=== PATIENT | female | born 1980 | race American Indian/Alaskan Native ===

== ENCOUNTER 2017-01-20 06:46 | Emergency (ER) | payer MEDICAID ==
[2017-01-20 07:05] VITALS: BP 153/94
[2017-01-20] MEDS ORDERED: Triamcinolone Acetonide 40 MG/ML 1 ML MDV ONE (07:10)
--- NOTE | 2017-01-20 08:11 | EDM.PDOC ---
ED HPI GENERAL MEDICAL PROBLEM - General Chief Complaint: General Stated Complaint: Neck and R shoulder pain Time Seen by Provider: 01/20/17 07:05 Source of Information: Reports: Patient History Limitations: Reports: No limitations - History of Present Illness INITIAL COMMENTS - FREE TEXT/NARRATIVE: This is a 36yo F here for severe neck pain and tenderness with difficulty moving without severe pain. Patient states the pain is 10/10 and worse with trying movement. The pain is the right posterior neck down the shoulder. Patient denies any chest pain, or sob. On further questioning although patient denies any stomach pain, diarrhea or constipation she mentioned she has been having blood in her stool - for the past few days. Patient states her mother had the same issues but never had it checked out and has since passed from other issues. Onset: sudden Duration: Hour(s):, Constant Improves with: Reports: None Worsens with: Reports: Movement Associated Symptoms: Reports: denies other symptoms - Related Data Allergies Allergy/AdvReac Type Severity Reaction Status Date / Time ampicillin Allergy Anaphylactic Verified 12/27/16 12:54 Shock erythromycin base Allergy Anaphylactic Verified 12/27/16 12:54 [Erythromycin Base] Shock ketorolac tromethamine Allergy Muscle Verified 12/27/16 12:54 [From Toradol] Spasms Penicillins Allergy Yeast Verified 12/27/16 12:54 Infections plastic adhesive tape Allergy Blisters Uncoded 12/27/16 12:54 Home Meds: Home Meds Lisinopril [Prinivil] 10 mg PO DAILY 11/09/13 [History] Colchicine 0.6 mg PO BID 03/01/16 [History] Albuterol [Proair HFA] 1 - 2 puff INH Q6HR PRN 03/08/16 [History] Desvenlafaxine [Pristiq] 100 mg PO DAILY 03/08/16 [History] Gabapentin [Gabapentin] 900 mg PO TID 03/08/16 [History] Pantoprazole Sodium [Protonix] 40 mg PO ACBREAKFAST 03/08/16 [History] SUMAtriptan Succinate [Sumatriptan Succinate] 1 tab PO Q2HR PRN 03/08/16 [ History] Triamcinolone Acetonide [Nasacort AQ [place]] 1 spray VIOLA ASDIRECTED 03/08/16 [ History] lamoTRIgine [Lamotrigine] 100 mg PO DAILY 03/08/16 [History] traZODone HCl [Trazodone HCl] 100 mg PO QPM PRN 03/08/16 [History] Cetirizine [ZyrTEC] 10 mg PO DAILY PRN 12/09/16 [History] Cyclobenzaprine [Flexeril] 10 mg PO BEDTIME #25 tab 12/09/16 [Rx] Meloxicam [Meloxicam] 15 mg PO BID 12/09/16 [History] Methocarbamol [Methocarbamol] 500 mg PO TID PRN 12/09/16 [History] Naproxen Sodium [Aleve] 220 mg PO BID PRN 12/09/16 [History] Past Medical History HEENT History: Reports: Impaired vision Other HEENT History: "Deviated septum showed on CT " Cardiovascular History: Reports: Hypertension Other Cardiovascular History: Took steroid for heart inflammation and fluid Respiratory History: Reports: Bronchitis, recurrent Gastrointestinal History: Reports: GERD Other Gastrointestinal History: chronic abdominal pain [employer] History: Reports: Ectopic , Musculoskeletal History: Reports: Back pain, chronic, Fracture, Other (see below ) Other Musculoskeletal History: Tendonitis Neurological History: Reports: Concussion, Migraines Psychiatric History: Reports: Anxiety, Bipolar, Depression Hematologic History: Reports: Anemia Immunologic History: Reports: Other (see below) Other Immunologic History: . - Infectious Disease History Infectious Disease History: Reports: Chicken pox - Past Surgical History Cardiovascular Surgical History: Reports: None Respiratory Surgical History: Reports: None Neurological Surgical History: Reports: Other (see below) Other Neurological Surgeries/Procedures: Back Surgery for Herniated Disk Social & Family History - Family History Family Medical History: Noncontributory Psychiatric: Reports: Anxiety, Bipolar, Depression - Tobacco Use Smoking Status *Q: Current Every Day Smoker Years of Tobacco use: 20 Packs/Tins Daily: 1 Used Tobacco, but Quit: No Second Hand Smoke Exposure: Yes - Caffeine Use Caffeine Use: Reports: Coffee, Soda - Alcohol Use Days Per Week of Alcohol Use: 0 - Recreational Drug Use Recreational Drug Use: No - Living Situation & Occupation Living situation: Reports: single ED ROS GENERAL - Review of Systems Review Of Systems: ROS reveals no pertinent complaints other than HPI. ED EXAM, GENERAL - Physical Exam Exam: See Below Exam Limited By: No limitations General Appearance: alert, WD/WN, moderate distress Eye Exam: bilateral eye: EOMI, PERRL Nose: normal inspection Throat/Mouth: Normal inspection Head: atraumatic, normocephalic Neck: tender lateral Respiratory/Chest: no respiratory distress, lungs clear, normal breath sounds Cardiovascular: normal peripheral pulses, regular rate, rhythm, no edema Peripheral Pulses: 2+: dorsalis pedis (L), dorsalis pedis (R) GI/Abdominal: normal bowel sounds, soft, non tender Extremities: normal inspection, normal range of motion, other (left leg thigh pain, numbness of left sole and lateral foot) Psychiatric: normal affect, normal mood Skin Exam: Warm, Dry, Intact ED GENERAL MEDICAL PROCEDURES - Additional/Other Procedure(s) Other (Free Text) Procedure(s): Trigger point injections done of right neck and right upper back/shoulder region. Patient area prepped sterilely and injected with kenalog 2mL, marcaine 0.5% 2mL, lidocaine 1% 2mL with 27 ga in fan like manner of the right upper shoulder region and this was done with another 2-2-2 27 ga of the right posterior neck region where pain was palpated. Patient tolerated procedure well and felt relief soon after injections. Course - Vital Signs Last Recorded V/S: Last Vital Signs Temp 36.9 C 01/20/17 06:59 Pulse 118 H 01/20/17 06:59 Resp 18 01/20/17 06:59 BP 153/94 H 01/20/17 06:59 Pulse Ox 98 01/20/17 06:59 - Orders/Labs/Meds Meds: Medications Discontinued Medications Generic Name Dose Route Start Last Admin Trade Name Cate PRN Reason Stop Dose Admin Triamcinolone Acetonide Confirm 01/20/17 07:10 Kenalog-40 Administered 01/20/17 07:11 Dose 80 mg .ROUTE .STK-MED ONE Departure - Departure Time of Disposition: 07:50 Disposition: Home, Self-Care 01 Condition: good Clinical Impression: Neck muscle strain Qualifiers: Encounter type: initial encounter Qualified Code(s): S16.1XXA - Strain of muscle, fascia and tendon at neck level, initial encounter Referrals: PCP,Unknown [Primary Care Provider] - Forms: ED Department Discharge - Problem List & Annotations (1) Hematochezia SNOMED Code(s): 546875132 Code(s): K92.1 - MELENA Status: Suspected Priority: Medium (2) Neck muscle strain SNOMED Code(s): 219209317 Code(s): S16.1XXA - STRAIN OF MUSCLE, FASCIA AND TENDON AT NECK LEVEL, INIT Status: Acute Priority: High Qualifiers: Encounter type: initial encounter Qualified Code(s): S16.1XXA - Strain of muscle, fascia and tendon at neck level, initial encounter - Problem List Review Problem List Initiated/Reviewed/Updated: Yes - Assessment/Plan Plan: Counseled on f/u in clinic for neck strain. Use of soft collar discussed and given a soft collar. Patient counseled on hematochezia and colonoscopy and EGD to be scheduled. Order given for scheduling today. Patient agrees with plan of care and f/u.
== END 2017-01-20 07:59 | disposition home or self-care (01) ==
LOC: LB.ED 06:46
DX: S16.1XXA Strain of muscle, fascia and tendon at neck level, initial encounter (principal); I10 Essential (primary) hypertension; D64.9 Anemia, unspecified; F17.210 Nicotine dependence, cigarettes, uncomplicated; Z88.1 Allergy status to other antibiotic agents; Z88.8 Allergy status to other drugs, medicaments and biological substances; Z88.0 Allergy status to penicillin; Z79.899 Other long term (current) drug therapy; X58.XXXA Exposure to other specified factors, initial encounter
CPT/HCPCS: 20552; 99283; 99283-25

== ENCOUNTER 2017-01-28 12:08 | Emergency (ER) | payer MEDICAID ==
[2017-01-28 12:14] VITALS: BP 155/75
--- NOTE | 2017-01-28 15:36 | EDM.PDOC ---
ED HPI GENERAL MEDICAL PROBLEM - General Chief Complaint: General Stated Complaint: PAIN IN ANKLE Time Seen by Provider: 01/28/17 12:30 Source of Information: Reports: Patient History Limitations: Reports: No limitations - History of Present Illness INITIAL COMMENTS - FREE TEXT/NARRATIVE: This is a 36yo F here for a recent fall and pain of the left ankle. Patient was walking down her stairs when her dog moved to the side and she stepped off to avoid stepping on her dog and tripped then fell down the stairs. Patient was brought to the ER by her friend Jorge. Onset: sudden Location: Reports: lower extremity, left Quality: Reports: Ache Severity: severe Improves with: Reports: None Worsens with: Reports: None Associated Symptoms: Reports: denies other symptoms left ankle Pain Score (Numeric/FACES): 10 - Related Data Allergies Allergy/AdvReac Type Severity Reaction Status Date / Time ampicillin Allergy Anaphylactic Verified 12/27/16 12:54 Shock erythromycin base Allergy Anaphylactic Verified 12/27/16 12:54 [Erythromycin Base] Shock ketorolac tromethamine Allergy Muscle Verified 12/27/16 12:54 [From Toradol] Spasms Penicillins Allergy Yeast Verified 12/27/16 12:54 Infections plastic adhesive tape Allergy Blisters Uncoded 12/27/16 12:54 Home Meds: Home Meds Lisinopril [Prinivil] 10 mg PO DAILY 11/09/13 [History] Colchicine 0.6 mg PO BID 03/01/16 [History] Albuterol [Proair HFA] 1 - 2 puff INH Q6HR PRN 03/08/16 [History] Desvenlafaxine [Pristiq] 100 mg PO DAILY 03/08/16 [History] Gabapentin [Gabapentin] 900 mg PO TID 03/08/16 [History] Pantoprazole Sodium [Protonix] 40 mg PO ACBREAKFAST 03/08/16 [History] SUMAtriptan Succinate [Sumatriptan Succinate] 1 tab PO Q2HR PRN 03/08/16 [ History] Triamcinolone Acetonide [Nasacort AQ [place]] 1 spray VIOLA ASDIRECTED 03/08/16 [ History] lamoTRIgine [Lamotrigine] 100 mg PO DAILY 03/08/16 [History] traZODone HCl [Trazodone HCl] 100 mg PO QPM PRN 03/08/16 [History] Cetirizine [ZyrTEC] 10 mg PO DAILY PRN 12/09/16 [History] Cyclobenzaprine [Flexeril] 10 mg PO BEDTIME #25 tab 12/09/16 [Rx] Meloxicam [Meloxicam] 15 mg PO BID 12/09/16 [History] Methocarbamol [Methocarbamol] 500 mg PO TID PRN 12/09/16 [History] Naproxen Sodium [Aleve] 220 mg PO BID PRN 12/09/16 [History] Past Medical History HEENT History: Reports: Impaired vision Other HEENT History: "Deviated septum showed on CT " Cardiovascular History: Reports: Hypertension Other Cardiovascular History: Took steroid for heart inflammation and fluid Respiratory History: Reports: Bronchitis, recurrent Gastrointestinal History: Reports: GERD Other Gastrointestinal History: chronic abdominal pain [employer] History: Reports: Ectopic , Musculoskeletal History: Reports: Back pain, chronic, Fracture, Other (see below ) Other Musculoskeletal History: Tendonitis Neurological History: Reports: Concussion, Migraines Psychiatric History: Reports: Anxiety, Bipolar, Depression Hematologic History: Reports: Anemia Immunologic History: Reports: Other (see below) Other Immunologic History: . - Infectious Disease History Infectious Disease History: Reports: Chicken pox - Past Surgical History Cardiovascular Surgical History: Reports: None Respiratory Surgical History: Reports: None Neurological Surgical History: Reports: Other (see below) Other Neurological Surgeries/Procedures: Back Surgery for Herniated Disk Social & Family History - Family History Family Medical History: Noncontributory Psychiatric: Reports: Anxiety, Bipolar, Depression - Tobacco Use Smoking Status *Q: Current Every Day Smoker Years of Tobacco use: 20 Packs/Tins Daily: 1 Used Tobacco, but Quit: No Second Hand Smoke Exposure: Yes - Caffeine Use Caffeine Use: Reports: Coffee, Soda - Alcohol Use Days Per Week of Alcohol Use: 0 - Recreational Drug Use Recreational Drug Use: No - Living Situation & Occupation Living situation: Reports: single ED ROS GENERAL - Review of Systems Review Of Systems: ROS reveals no pertinent complaints other than HPI. ED EXAM, GENERAL - Physical Exam Exam: See Below Exam Limited By: No limitations General Appearance: alert, WD/WN, severe distress Eye Exam: bilateral eye: EOMI, PERRL Ears: normal external exam Nose: normal inspection Throat/Mouth: Normal inspection Head: atraumatic, normocephalic Neck: normal inspection, supple, non-tender Respiratory/Chest: no respiratory distress, lungs clear, normal breath sounds Cardiovascular: normal peripheral pulses, regular rate, rhythm, no edema Peripheral Pulses: 2+: dorsalis pedis (L), dorsalis pedis (R) GI/Abdominal: normal bowel sounds, soft, non tender Extremities: other (left lateral ankle swelling and tenderness of the talofibular ligament) Psychiatric: anxious, tearful Skin Exam: Warm, Dry, Intact Course - Vital Signs Last Recorded V/S: Last Vital Signs Temp 36.9 C 01/28/17 12:11 Pulse 95 01/28/17 12:11 Resp BP 155/75 H 01/28/17 12:11 Pulse Ox 100 01/28/17 12:11 - Orders/Labs/Meds Orders: Active Orders 24 hr Category Date Time Status Ankle 2V Lt [CR] Stat Exams 01/28/17 12:15 Taken Foot Comp Min 3V Lt [CR] Stat Exams 01/28/17 12:15 Taken Departure - Departure Time of Disposition: 13:30 Disposition: Home, Self-Care 01 Condition: good Clinical Impression: Sprain of anterior talofibular ligament of left ankle Qualifiers: Encounter type: initial encounter Qualified Code(s): S93.492A - Sprain of other ligament of left ankle, initial encounter Instructions: Cryotherapy Referrals: PCP,None [Primary Care Provider] - Forms: ED Department Discharge Additional Instructions: Do Not bear weight for at least one week. Ibuprofen 800mg every 8 hours for pain as needed. Aircast on for 4-6 weeks. Follow up in the clinic as needed. - Problem List Review Problem List Initiated/Reviewed/Updated: Yes - My Orders Last 24 Hours: My Active Orders 01/28/17 12:15 Ankle 2V Lt [CR] Stat Foot Comp Min 3V Lt [CR] Stat - Assessment/Plan Last 24 Hours: My Active Orders 01/28/17 12:15 Ankle 2V Lt [CR] Stat Foot Comp Min 3V Lt [CR] Stat Plan: Counseled on supportive care and f/u. Patient to f/u if symptoms worsen. Discussed numbness of the distal shanice-lateral bose and counseled on close monitoring and f/u if symptoms persist or worsen.
--- NOTE | 2017-01-31 22:30 | CR ---
DATE OF SERVICE: 01/28/2017 CLINICAL DATA: Fall down stairs. LEFT ANKLE No acute fracture or dislocation. No lytic or blastic bone lesions. There is a sclerotic lesion within the talus most likely representing a benign bone island. The exam is otherwise negative. [id number] [facility]
--- NOTE | 2017-01-31 22:32 | CR ---
DATE OF SERVICE: 01/28/2017 CLINICAL DATA: Fall down stairs. LEFT FOOT No acute fracture or dislocation. There is a sclerotic density in the talus most likely representing a benign bone island. No other lytic or blastic bone lesions. [id number] [facility]
== END 2017-01-28 13:01 | disposition home or self-care (01) ==
LOC: LB.ED 12:08
DX: S93.492A Sprain of other ligament of left ankle, initial encounter (principal); I10 Essential (primary) hypertension; K21.9 Gastro-esophageal reflux disease without esophagitis; Z88.1 Allergy status to other antibiotic agents; Z88.8 Allergy status to other drugs, medicaments and biological substances; Z88.0 Allergy status to penicillin; Z79.899 Other long term (current) drug therapy; F17.210 Nicotine dependence, cigarettes, uncomplicated; W10.9XXA Fall (on) (from) unspecified stairs and steps, initial encounter
CPT/HCPCS: 73600-LT; 73630-LT; 99283

== ENCOUNTER 2017-02-14 12:47 | Emergency (ER) | payer MEDICAID ==
[2017-02-14] MEDS ORDERED: Ondansetron 4 MG Tab.DIS PO ONE ×2 (13:03→13:10)
[2017-02-14] MEDS ORDERED: Ondansetron 4 MG Tab.DIS ONE (13:06)
[2017-02-14 13:08] VITALS: BP 139/77
--- NOTE | 2017-02-14 13:17 | EDM.PDOC ---
ED HPI GENERAL MEDICAL PROBLEM - General Chief Complaint: General Stated Complaint: NOT FEELING WELL Time Seen by Provider: 02/14/17 12:50 Source of Information: Reports: Patient History Limitations: Reports: No limitations - History of Present Illness INITIAL COMMENTS - FREE TEXT/NARRATIVE: According to patient she has been having right upper quadrant pain for past 1 wk , pain is dull achy, comes and goes. But in the pat 3 days pain is worse. She claims that it cramps on and off all day. She ate Baloni sandwich for lunch and her pain got worse. No radiation of pain.Collins nauseous, but no vomiting. No abdominal bloating. No Belching or burping. Had normal bowel movement today. Has been eating well. No weakness. Duration: Week(s): (1), Getting worse, Waxing/waning Location: Reports: abdomen Quality: Reports: Ache Severity: moderate Improves with: Reports: None Worsens with: Reports: None, Eating Associated Symptoms: Reports: nausea/vomiting. Denies: confusion, chest pain, cough, diaphoresis, fever/chills, headaches, loss of appetite, rash, seizure, shortness of breath, weakness Right Upper Abdomen Pain Score (Numeric/FACES): 10 - Related Data Allergies Allergy/AdvReac Type Severity Reaction Status Date / Time ampicillin Allergy Anaphylactic Verified 02/14/17 12:55 Shock erythromycin base Allergy Anaphylactic Verified 02/14/17 12:55 [Erythromycin Base] Shock Penicillins Allergy Yeast Verified 02/14/17 12:55 Infections plastic adhesive tape Allergy Blisters Uncoded 12/27/16 12:54 Home Meds: Home Meds Lisinopril [Prinivil] 10 mg PO DAILY 11/09/13 [History] Albuterol [Proair HFA] 1 - 2 puff INH Q6HR PRN 03/08/16 [History] Desvenlafaxine [Pristiq] 100 mg PO DAILY 03/08/16 [History] Gabapentin [Gabapentin] 900 mg PO TID 03/08/16 [History] Pantoprazole Sodium [Protonix] 40 mg PO ACBREAKFAST 03/08/16 [History] SUMAtriptan Succinate [Sumatriptan Succinate] 1 tab PO Q2HR PRN 03/08/16 [ History] Triamcinolone Acetonide [Nasacort AQ [place]] 1 spray VIOLA ASDIRECTED 03/08/16 [ History] lamoTRIgine [Lamotrigine] 100 mg PO DAILY 03/08/16 [History] traZODone HCl [Trazodone HCl] 100 mg PO QPM PRN 03/08/16 [History] Cetirizine [ZyrTEC] 10 mg PO DAILY PRN 12/09/16 [History] Cyclobenzaprine [Flexeril] 10 mg PO BEDTIME #25 tab 12/09/16 [Rx] Meloxicam [Meloxicam] 15 mg PO BID 12/09/16 [History] Methocarbamol [Methocarbamol] 500 mg PO TID PRN 12/09/16 [History] Past Medical History HEENT History: Reports: Impaired vision Other HEENT History: "Deviated septum showed on CT " Cardiovascular History: Reports: Hypertension Other Cardiovascular History: Took steroid for heart inflammation and fluid Respiratory History: Reports: Bronchitis, recurrent, SOB Gastrointestinal History: Reports: Chronic constipation, Chronic diarrhea, GERD Other Gastrointestinal History: chronic abdominal pain [employer]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 - Infectious Disease History Infectious Disease History: Reports: Chicken pox - Past Surgical History Cardiovascular Surgical History: Reports: None Respiratory Surgical History: Reports: None Neurological Surgical History: Reports: Other (see below) Other Neurological Surgeries/Procedures: Back Surgery for Herniated Disk Musculoskeletal Surgical History: Reports: None, Other (see below) Other Musculoskeletal Surgeries/Procedures:: back surg lower bach herniated disc Social & Family History - Family History Family Medical History: Noncontributory Psychiatric: Reports: Anxiety, Bipolar, Depression - Tobacco Use Smoking Status *Q: Current Every Day Smoker Years of Tobacco use: 20 Packs/Tins Daily: 1 Used Tobacco, but Quit: No Second Hand Smoke Exposure: Yes - Caffeine Use Caffeine Use: Reports: Coffee, Soda, Tea - Alcohol Use Days Per Week of Alcohol Use: 1 Number of Drinks Per Day: 1 Total Drinks Per Week: 1 - Recreational Drug Use Recreational Drug Use: No - Living Situation & Occupation Living situation: Reports: single ED ROS GENERAL - Review of Systems Review Of Systems: See Below Constitutional: Denies: fever, chills, fatigue HEENT: Denies: Rhinitis, Sinus problem, Throat pain, Throat swelling Respiratory: Denies: Shortness of Breath, Wheezing, Cough, Sputum Cardiovascular: Denies: Chest pain, Lightheadedness GI/Abdominal: Reports: Abdominal pain, Nausea. Denies: Constipation, Distension , Hematochezia, Vomiting : Denies: dysuria, flank pain Musculoskeletal: Denies: neck pain, shoulder pain, joint pain Skin: Denies: pruritis, rash Neurological: Denies: Confusion, Dizziness, Headache, Numbness, Paresthesia, Tremors, Weakness Psychiatric: Reports: Anxiety. Denies: Agitation ED EXAM, GENERAL - Physical Exam Exam: See Below Exam Limited By: No limitations General Appearance: alert, WD/WN, no apparent distress, anxious Eye Exam: bilateral eye: EOMI, PERRL Ears: normal external exam, normal canal, hearing grossly normal, normal TMs Ear Exam: bilateral ear: auricle normal, canal normal, TM normal Nose: normal inspection, normal mucosa, no blood Throat/Mouth: Normal inspection, Normal lips, Normal teeth, Normal gums, Normal oropharynx, Normal voice, No airway compromise Head: atraumatic, normocephalic Neck: normal inspection, supple, non-tender, full range of motion Respiratory/Chest: no respiratory distress, lungs clear, normal breath sounds, no accessory muscle use, chest non-tender Cardiovascular: normal peripheral pulses, regular rate, rhythm, no edema, no gallop, no JVD, no murmur, no rub GI/Abdominal: normal bowel sounds, soft, no organomegaly, no distention, no abnormal bruit, no mass, tender (All over the right upper quadrant to superficial palpation). No: rigid, rebound, mass, hepatomegaly Extremities: normal inspection, normal range of motion, non-tender, normal capillary refill, no pedal edema Course - Vital Signs Text/Narrative:: Pt has had right upper quadrant pain on and off for the past 1 wk. She has not fever, chills, or jaundice. Her CBC shows mild elevation of white count at 15. Her CMP is normal and also her CT abdomen is normal with no acute findings. Pt did receive Zofran 4mg and toradol 30mg IM, and pain has settled down.Pt reassured that she probably has colonic colic on and off. Advised to followup with her primary care provider in the clinic if her symptoms persist. Might needs Ultrasound of the abdomen to make sure she does not have gall bladder disease. Last Recorded V/S: Last Vital Signs Temp 97.6 F 02/14/17 13:06 Pulse 100 02/14/17 13:06 Resp 18 02/14/17 13:06 BP 139/77 02/14/17 13:06 Pulse Ox 99 02/14/17 13:06 - Orders/Labs/Meds Orders: Active Orders 24 hr Category Date Time Status Abdomen wo Cont [CT] Stat Exams 02/14/17 13:22 Taken Labs: Laboratory Tests 02/14/17 02/14/17 Range/Units 13:09 13:09 WBC 15.6 H D (4.0-11.0) K/uL RBC 4.38 (3.80-5.80) M/uL Hgb 13.9 (11.5-16.5) g/dL Hct 41.6 (37.0-47.0) % MCV 95 (76-96) fL MCH 31.7 (27.0-32.0) pg MCHC 33.4 (31.0-35.0) g/dL RDW 14.1 (11.0-16.0) % Plt Count 255 (150-500) K/uL MPV 10.5 H (6.0-10.0) fL Neut % (Auto) 76.9 H (45.0-70.0) % Lymph % (Auto) 14.6 L (20.0-40.0) % [place] % (Auto) 8.0 (3.0-10.0) % Eos % (Auto) 0.3 L (1.0-5.0) % Baso % (Auto) 0.2 (0.0-0.5) % Neut # (Auto) 12.00 H (2.00-7.50) K/uL Lymph # (Auto) 2.28 (1.50-4.00) K/uL [place] # (Auto) 1.25 H (0.20-0.80) K/uL Eos # (Auto) 0.04 (0.04-0.40) K/uL Baso # (Auto) 0.03 (0.02-0.10) K/uL Sodium 139 (136-145) mmol/L Potassium 3.8 (3.5-5.1) mmol/L Chloride 103 (98-107) mmol/L Carbon Dioxide 26.6 (21.0-32.0) mmol/L Anion Gap 13.2 (5.0-15.0) mmol/L BUN 11 D (8-26) mg/dL Creatinine 0.71 (0.55-1.02) mg/dL Est Cr Clr Drug Dosing 93.68 mL/min Estimated GFR (MDRD) > 60 (>60) MLS/MIN BUN/Creatinine Ratio 15.5 (6-25) Glucose 103 H (74-100) mg/dL Calcium 8.5 (8.5-10.1) mg/dL Total Bilirubin 0.5 (0.0-1.0) mg/dL AST 32 (15-37) U/L ALT 76 (12-78) U/L Alkaline Phosphatase 107 (46-116) U/L Total Protein 6.7 (6.4-8.2) g/dL Albumin 2.8 L (3.4-5.0) g/dL Globulin 3.9 (2.2-4.2) g/dL Albumin/Globulin Ratio 0.7 L (0.8-2.0) Meds: Medications Discontinued Medications Generic Name Dose Route Start Last Admin Trade Name Freq PRN Reason Stop Dose Admin Ketorolac Tromethamine 30 mg 02/14/17 13:32 02/14/17 13:41 Toradol IM 02/14/17 13:33 30 mg ONETIME ONE Administration Ketorolac Tromethamine Confirm 02/14/17 13:39 02/14/17 13:42 Toradol Administered 02/14/17 13:40 Not Given Dose 30 mg .ROUTE .STK-MED ONE Ondansetron HCl 4 mg 02/14/17 13:03 02/14/17 13:04 Zofran Odt PO 02/14/17 13:04 4 mg ONETIME ONE Administration Ondansetron HCl Confirm 02/14/17 13:06 02/14/17 13:30 Zofran Odt Administered 02/14/17 13:07 Not Given Dose 4 mg .ROUTE .STK-MED ONE Ondansetron HCl 4 mg 03/26/17 13:10 Zofran Odt PO 02/14/17 13:11 ONETIME ONE Departure - Departure Time of Disposition: 15:10 Disposition: Home, Self-Care 01 Condition: fair Clinical Impression: Colicky RUQ abdominal pain Instructions: Abdominal Pain, Adult, [id number], Low-Fat Diet for Pancreatitis or Gallbladder Conditions Referrals: PCP,None [Primary Care Provider] - Forms: ED Department Discharge - Problem List & Annotations (1) Colicky RUQ abdominal pain SNOMED Code(s): 593373430, [id number] Code(s): R10.11 - RIGHT UPPER QUADRANT PAIN Status: Acute Current Visit: Yes - Problem List Review Problem List Initiated/Reviewed/Updated: Yes - My Orders Last 24 Hours: My Active Orders 02/14/17 13:22 Abdomen wo Cont [CT] Stat - Assessment/Plan Last 24 Hours: My Active Orders 02/14/17 13:22 Abdomen wo Cont [CT] Stat Assessment:: Abdominal COlic- RUQ Plan: Pt has had right upper quadrant pain on and off for the past 1 wk. She has not fever, chills, or jaundice. Her CBC shows mild elevation of white count at 15. Her CMP is normal and also her CT abdomen is normal with no acute findings. Pt did receive Zofran 4mg and toradol 30mg IM, and pain has settled down.Pt reassured that she probably has colonic colic on and off. Advised to followup with her primary care provider in the clinic if her symptoms persist. Might needs Ultrasound of the abdomen to make sure she does not have gall bladder disease.
[2017-02-14] MEDS ORDERED: Ketorolac 30 MG/ML SDV IM ONE (13:32)
[2017-02-14] MEDS ORDERED: Ketorolac 30 MG/ML SDV ONE (13:39)
--- NOTE | 2017-02-15 07:42 | CT ---
DATE OF SERVICE: 02/14/17 CLINICAL DATA: RUQ pain UNENHANCED ABDOMEN CT: Multislice acquisition through the abdomen without IV or oral contrast was performed. Comparison is made to a prior exam dated 12/09/16. The lung bases are clear. The liver is normal size. There are multiple low density lesions in both the right and left lobes of the liver. These were present on the prior exam and appear essentially unchanged. They are most likely multiple cysts. No new hepatic lesions. The gallbladder appears normal. No calcified gallstones. The spleen appears normal. The pancreas appears normal. The right and left adrenals appear normal. No nephrocalcinosis or nephrolithiasis. There are multiple low density lesions in both kidneys that were present on the prior exam and most likely represent cysts. There is also a small hyperdense lesion in the right kidney which is most likely a hyperdense cyst. It appears unchanged from the prior CT. No nephrocalcinosis or nephrolithiasis. No hydronephrosis or hydroureter. There is a moderate amount of stool noted within the visualized colon. The appendix is not identified. No free air. No free fluid. No dilated loops of bowel. No adenopathy. No aortic aneurysm. IMPRESSION: No acute abnormalities. [id number] [facility]
== END 2017-02-14 15:15 | disposition home or self-care (01) ==
LOC: LB.ED 12:47
DX: R10.11 Right upper quadrant pain (principal); I10 Essential (primary) hypertension; K21.9 Gastro-esophageal reflux disease without esophagitis; F41.9 Anxiety disorder, unspecified; F32.9 Major depressive disorder, single episode, unspecified; F17.210 Nicotine dependence, cigarettes, uncomplicated; Z86.2 Personal history of diseases of the blood and blood-forming organs and certain disorders involving the immune mechanism; Z88.0 Allergy status to penicillin; Z79.899 Other long term (current) drug therapy; Z88.1 Allergy status to other antibiotic agents; Z91.09 Other allergy status, other than to drugs and biological substances
CPT/HCPCS: 36415; 74150; 80053; 85025; 96372; 99283; 99284; A9270; J1885

== ENCOUNTER 2017-02-22 22:48 | Emergency (ER) | payer MEDICAID ==
[2017-02-22] MEDS ORDERED: Ketorolac 60 MG/2 ML SDV IM ONE (23:10)
[2017-02-22] MEDS ORDERED: Ketorolac 60 MG/2 ML SDV ONE (23:16)
[2017-02-23 01:50] VITALS: BP 146/122
--- NOTE | 2017-03-03 14:35 | EDM.PDOC ---
ED HPI GENERAL MEDICAL PROBLEM - General Chief Complaint: General Stated Complaint: ARM PAIN Time Seen by Provider: 02/22/17 23:15 Source of Information: Reports: Patient History Limitations: Reports: No limitations - History of Present Illness INITIAL COMMENTS - FREE TEXT/NARRATIVE: This is a 36yo F here for b/l forearm pain without injury or trauma. Patient states she felt the pain start a day or two after returning to work. Patient states the pain is both forearms and states she can feel a bump on the left arm that is very painful. Patient denies any other complains. Patient states she has taken multiple medications and they do not help her. Duration: Day(s):, Getting worse Location: Reports: upper extremity, left, upper extremity, right Quality: Reports: Ache Severity: severe Improves with: Reports: None Worsens with: Reports: None Associated Symptoms: Reports: denies other symptoms Treatments [employer]PUT[employer]ENCE: Reports: Acetaminophen, Home treatments, Other medication(s) Bilateral Arm Pain Score (Numeric/FACES): 10 - Related Data Allergies Allergy/AdvReac Type Severity Reaction Status Date / Time ampicillin Allergy Anaphylactic Verified 02/22/17 23:01 Shock Penicillins Allergy Yeast Verified 02/22/17 23:01 Infections plastic adhesive tape Allergy Blisters Uncoded 12/27/16 12:54 Home Meds: Home Meds Lisinopril [Prinivil] 10 mg PO DAILY 11/09/13 [History] Albuterol [Proair HFA] 1 - 2 puff INH Q6HR PRN 03/08/16 [History] Desvenlafaxine [Pristiq] 100 mg PO DAILY 03/08/16 [History] Gabapentin [Gabapentin] 900 mg PO TID 03/08/16 [History] Pantoprazole Sodium [Protonix] 40 mg PO ACBREAKFAST 03/08/16 [History] SUMAtriptan Succinate [Sumatriptan Succinate] 1 tab PO Q2HR PRN 03/08/16 [ History] Triamcinolone Acetonide [Nasacort AQ [place]] 1 spray VIOLA ASDIRECTED 03/08/16 [ History] lamoTRIgine [Lamotrigine] 100 mg PO DAILY 03/08/16 [History] traZODone HCl [Trazodone HCl] 100 mg PO QPM PRN 03/08/16 [History] Cetirizine [ZyrTEC] 10 mg PO DAILY PRN 12/09/16 [History] Cyclobenzaprine [Flexeril] 10 mg PO BEDTIME #25 tab 12/09/16 [Rx] Meloxicam [Meloxicam] 15 mg PO BID 12/09/16 [History] Methocarbamol [Methocarbamol] 500 mg PO TID PRN 12/09/16 [History] Past Medical History HEENT History: Reports: Impaired vision Other HEENT History: "Deviated septum showed on CT " Cardiovascular History: Reports: Hypertension Other Cardiovascular History: Took steroid for heart inflammation and fluid Respiratory History: Reports: Bronchitis, recurrent, SOB Gastrointestinal History: Reports: Chronic constipation, Chronic diarrhea, GERD 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 - Infectious Disease History Infectious Disease History: Reports: Chicken pox - Past Surgical History Cardiovascular Surgical History: Reports: None Respiratory Surgical History: Reports: None Neurological Surgical History: Reports: Other (see below) Other Neurological Surgeries/Procedures: Back Surgery for Herniated Disk Musculoskeletal Surgical History: Reports: None, Other (see below) Other Musculoskeletal Surgeries/Procedures:: back surg lower back herniated disc Social & Family History - Family History Family Medical History: Noncontributory Psychiatric: Reports: Anxiety, Bipolar, Depression - Tobacco Use Smoking Status *Q: Current Every Day Smoker Years of Tobacco use: 21 Packs/Tins Daily: 2 Used Tobacco, but Quit: No Second Hand Smoke Exposure: Yes - Caffeine Use Caffeine Use: Reports: Coffee, Soda - Alcohol Use Days Per Week of Alcohol Use: 1 Number of Drinks Per Day: 1 Total Drinks Per Week: 1 - Recreational Drug Use Recreational Drug Use: No - Living Situation & Occupation Living situation: Reports: single ED ROS GENERAL - Review of Systems Review Of Systems: ROS reveals no pertinent complaints other than HPI. ED EXAM, GENERAL - Physical Exam Exam: See Below Exam Limited By: No limitations General Appearance: alert, WD/WN, moderate distress Head: atraumatic, normocephalic Neck: normal inspection Respiratory/Chest: no respiratory distress, lungs clear, normal breath sounds Cardiovascular: normal peripheral pulses, regular rate, rhythm Peripheral Pulses: 2+: brachial (L), brachial (R), radial (L), radial (R), dorsalis pedis (L), dorsalis pedis (R) GI/Abdominal: normal bowel sounds, soft, non tender Extremities: normal inspection, normal range of motion, arm pain Neurological: alert, oriented, CN II-XII intact Psychiatric: anxious, tearful Skin Exam: Warm, Dry, Intact Course - Vital Signs Last Recorded V/S: Last Vital Signs Temp 35.7 C 02/22/17 22:50 Pulse 106 H 02/22/17 22:50 Resp 20 02/22/17 22:50 BP 146/122 H 02/22/17 22:50 Pulse Ox 98 02/22/17 22:50 - Orders/Labs/Meds Meds: Medications Discontinued Medications Generic Name Dose Route Start Last Admin Trade Name Freq PRN Reason Stop Dose Admin Ketorolac Tromethamine Confirm 02/22/17 23:16 02/23/17 02:07 Toradol Administered 02/22/17 23:17 Not Given Dose 60 mg .ROUTE .STK-MED ONE Ketorolac Tromethamine 60 mg 02/22/17 23:10 02/22/17 23:10 Toradol IM 02/22/17 23:11 60 mg ONETIME ONE Administration Departure - Departure Time of Disposition: 00:15 Disposition: Home, Self-Care 01 Condition: good Clinical Impression: Forearm pain Qualifiers: Laterality: bilateral Qualified Code(s): M79.632 - Pain in left forearm; M79.631 - Pain in right forearm Referrals: Jayden Smith MD [Primary Care Provider] - Forms: ED Department Discharge Additional Instructions: May apply ice to affected areas to help with pain relief. Continue taking your regularly prescribed Meloxicam as previously ordered: 1 tablet twice daily. Apply braces you already have at home to help with pain as well. Get plenty of rest and activity should be decreased for several days, then as tolerated. Follow up in clinic at end of week.
== END 2017-02-22 23:20 | disposition home or self-care (01) ==
LOC: LB.ED 22:48
DX: M79.632 Pain in left forearm (principal); M79.631 Pain in right forearm; I10 Essential (primary) hypertension; K21.9 Gastro-esophageal reflux disease without esophagitis; F41.9 Anxiety disorder, unspecified; F32.9 Major depressive disorder, single episode, unspecified; F17.210 Nicotine dependence, cigarettes, uncomplicated; Z88.0 Allergy status to penicillin; Z88.1 Allergy status to other antibiotic agents; Z79.899 Other long term (current) drug therapy; Z86.2 Personal history of diseases of the blood and blood-forming organs and certain disorders involving the immune mechanism
CPT/HCPCS: 96372; 99283; J1885; 99282

== ENCOUNTER 2017-03-04 22:16 | Emergency (ER) | payer MEDICAID ==
[2017-03-04 22:38] VITALS: BP 140/100
[2017-03-04] MEDS ORDERED: Ketorolac 60 MG/2 ML SDV IM ONE ×2 (22:49→22:57)
[2017-03-04] MEDS ORDERED: prednisoLONE Syrup 5 MG/5 ML ML 120 ML Bottle PO ONE (22:49)
--- NOTE | 2017-03-05 03:09 | ER ---
HISTORY OF PRESENT ILLNESS: A 36-year-old female here with her significant other with complaints of bilateral knee pain that radiates down the anterior aspect of both lower legs that started a couple of days ago. It has gotten worse today. The patient states it will be shooting pain that goes down her lower legs and back up to the knee. It will happen several times. At other times, it will be good for little while. She states that it seems to be getting worse, and she wonders what can be done. She denies any falls or injuries. The patient states she has been taking her medications most of the time. She thinks she did take her meloxicam today, she is not real sure. Some of her med she has not been taking all the time thinking that it could be causing nausea. She thinks that she has been taking the gabapentin as well but she thinks she will stop taking it. The patient is vague when it comes to which medication she has taken or not taken. She has not taken Flexeril recently. PAST MEDICAL HISTORY: Includes: 1. Chronic episodes of pain in her arms, chest wall pain, knee pain, flank pain, ankle pain, neck pain, muscle pain. 2. The patient has also been dealing with a persistent hoarse cough for the last couple of weeks. She stopped taking lisinopril a few days ago, and she feels her cough is definitely improving. OBJECTIVE: GENERAL APPEARANCE: The patient is awake. She is alert. She is crying. VITAL SIGNS: Reviewed. Blood pressure 140/100. She is afebrile. Pulse is 112. EXTREMITIES: Physical exam examining both of the patient's knees reveals skin is intact. There is no swelling or discoloration. I cannot reproduce any pain with palpation of either knee or of the lower legs. The patient is able to stand and walk without any guarding or limping. At times when she is sitting, she is kicking her feet out and backwards again. She states it helps with the pain. DIAGNOSIS: Bilateral knee pain. No injuries noted, etiology unclear. TREATMENT PLAN: I will give the patient Toradol 45 mg IM, and she will be given prednisone 40 mg p.o. She is to go home and rest. She does have an appointment with Dr. Smith tomorrow in the clinic. She is to keep this appointment time. The patient is not to take anymore meloxicam or ibuprofen tonight. She can take it in the morning, the meloxicam but she should not take any ibuprofen in the morning, and of course she is to keep her appointment with Dr. Smith. RICCARDO/LYNNE /[id number]
[2017-03-05] MEDS ORDERED: predniSONE 20 MG Tab PO ONE (23:00)
== END 2017-03-04 23:14 | disposition home or self-care (01) ==
LOC: LB.ED 22:16
DX: M25.562 Pain in left knee (principal); M25.561 Pain in right knee
CPT/HCPCS: 96372; 99283; A9270; J1885; 99282

== ENCOUNTER 2017-03-07 02:39 | Inpatient (IN) | payer MEDICAID ==
--- NOTE | 2017-03-07 04:27 | EDM.PDOC ---
ED HISTORY OF PRESENT ILLNESS - General Chief Complaint: Respiratory Problem Stated Complaint: sob Time Seen by Provider: 03/07/17 03:40 Source: Reports: EMS, Other (Friends) History Limitations: Reports: Intoxication, Other (unresponsive) - History of Present Illness INITIAL COMMENTS - FREE TEXT/NARRATIVE: This is a 36yo F brought in by EMS for respiratory distress and unresponsiveness. Per friends she had been drinking heavily and no reports of drug abuse. Patient unresponsive on arrival. GCS fluctuating from 5-10, and placed on monitors. Patient tachy with breath sounds b/l equal and pulse ox 100% . Timing/Duration: Reports: Constant Severity: severe Improves with: Reports: None Worsens with: Reports: None Context, General: Reports: Other (alcohol intoxication, with marijuana use) - Related Data Allergies/ADRs: Allergies Allergy/AdvReac Type Severity Reaction Status Date / Time ampicillin Allergy Anaphylactic Verified 03/07/17 02:47 Shock Penicillins Allergy Yeast Verified 03/07/17 02:47 Infections plastic adhesive tape Allergy Blisters Uncoded 03/07/17 02:47 Home Meds: Home Meds Albuterol [Proair HFA] 1 - 2 puff INH Q6HR PRN 03/08/16 [History] Desvenlafaxine [Pristiq] 100 mg PO DAILY 03/08/16 [History] Gabapentin [Gabapentin] 900 mg PO TID 03/08/16 [History] Pantoprazole Sodium [Protonix] 40 mg PO ACBREAKFAST 03/08/16 [History] SUMAtriptan Succinate [Sumatriptan Succinate] 1 tab PO Q2HR PRN 03/08/16 [ History] Triamcinolone Acetonide [Nasacort AQ [place]] 1 spray VIOLA ASDIRECTED 03/08/16 [ History] lamoTRIgine [Lamotrigine] 100 mg PO DAILY 03/08/16 [History] traZODone HCl [Trazodone HCl] 100 mg PO QPM PRN 03/08/16 [History] Cetirizine [ZyrTEC] 10 mg PO DAILY PRN 12/09/16 [History] Cyclobenzaprine [Flexeril] 10 mg PO BEDTIME #25 tab 12/09/16 [Rx] Meloxicam [Meloxicam] 15 mg PO BID 12/09/16 [History] Methocarbamol [Methocarbamol] 500 mg PO TID PRN 12/09/16 [History] Past Medical History HEENT History: Reports: Impaired vision Other HEENT History: "Deviated septum showed on CT " Cardiovascular History: Reports: Hypertension Other Cardiovascular History: Took steroid for heart inflammation and fluid Respiratory History: Reports: Bronchitis, recurrent, SOB Gastrointestinal History: Reports: Chronic constipation, Chronic diarrhea, GERD Other Gastrointestinal History: chronic abdominal pain [employer] History: Reports: Ectopic , Musculoskeletal History: Reports: Back pain, chronic, Fracture, Other (see below ) Other Musculoskeletal History: Tendonitis Neurological History: Reports: Concussion, Migraines Psychiatric History: Reports: Anxiety, Bipolar, Depression, Mood swings Hematologic History: Reports: Anemia Immunologic History: Reports: Other (see below) Other Immunologic History: . - Infectious Disease History Infectious Disease History: Reports: Chicken pox - Past Surgical History Cardiovascular Surgical History: Reports: None Respiratory Surgical History: Reports: None Neurological Surgical History: Reports: Other (see below) Other Neurological Surgeries/Procedures: Back Surgery for Herniated Disk Musculoskeletal Surgical History: Reports: None, Other (see below) Other Musculoskeletal Surgeries/Procedures:: back surg lower back herniated disc Social & Family History - Family History Family Medical History: Noncontributory Psychiatric: Reports: Anxiety, Bipolar, Depression - Tobacco Use Smoking Status *Q: Current Status Unknown Years of Tobacco use: 21 Packs/Tins Daily: 2 Used Tobacco, but Quit: No Second Hand Smoke Exposure: Yes - Caffeine Use Caffeine Use: Reports: Coffee - Alcohol Use Days Per Week of Alcohol Use: 1 Number of Drinks Per Day: 9 Total Drinks Per Week: 9 Date of Last Drink: 03/07/17 Time of Last Drink: 01:00 - Recreational Drug Use Recreational Drug Use: Yes Drug Use in Last 12 Months: Yes Recreational Drug Type: Reports: Marijuana/Hashish - Living Situation & Occupation Living situation: Reports: single ED ROS GENERAL - Review of Systems Review Of Systems: Unable To Obtain ED EXAM, GENERAL - Physical Exam Exam: See Below Exam Limited By: Other (no response - fluctuating) Eye Exam: bilateral eye: PERRL (sluggish) Ears: normal external exam Ear Exam: bilateral ear: auricle normal, canal normal Nose: normal inspection Throat/Mouth: Other (dry mouth, fluctuating breathing patterns from bending of neck and obstruction - maintained and stabilized airway with head tilt and oxygen/breathing stabilized) Head: atraumatic, normocephalic Neck: other (obese) Respiratory/Chest: decreased breath sounds, accessory muscle use (with changes in position - resolved with head tilt) Cardiovascular: normal peripheral pulses, tachycardia Peripheral Pulses: 1+: radial (L), radial (R), dorsalis pedis (L), dorsalis pedis (R) GI/Abdominal: abnormal bowel sounds: (decreased) Back Exam: normal inspection Extremities: normal inspection Neurological: inattentive, confused, disoriented Skin Exam: Warm, Dry, Intact Course - Vital Signs Last Recorded V/S: Last Vital Signs Temp 36.6 C 03/07/17 09:38 Pulse 115 H 03/07/17 09:38 Resp 16 03/07/17 09:38 BP 135/82 03/07/17 09:38 Pulse Ox 99 03/07/17 09:38 - Orders/Labs/Meds Labs: Laboratory Tests 03/07/17 03/07/17 03/07/17 Range/Units 03:55 04:00 04:00 WBC 15.7 H (4.0-11.0) K/uL RBC 4.68 (3.80-5.80) M/uL Hgb 14.8 (11.5-16.5) g/dL Hct 43.7 (37.0-47.0) % MCV 93 (76-96) fL MCH 31.6 (27.0-32.0) pg MCHC 33.9 (31.0-35.0) g/dL RDW 15.3 (11.0-16.0) % Plt Count 195 D (150-500) K/uL MPV 12.7 H (6.0-10.0) fL Neut % (Auto) 69.7 (45.0-70.0) % Lymph % (Auto) 20.7 (20.0-40.0) % Russell % (Auto) 9.1 (3.0-10.0) % Eos % (Auto) 0.3 L (1.0-5.0) % Baso % (Auto) 0.2 (0.0-0.5) % Neut # (Auto) 10.95 H (2.00-7.50) K/uL Lymph # (Auto) 3.24 (1.50-4.00) K/uL Russell # (Auto) 1.43 H (0.20-0.80) K/uL Eos # (Auto) 0.04 (0.04-0.40) K/uL Baso # (Auto) 0.03 (0.02-0.10) K/uL Sodium 142 (136-145) mmol/L Potassium 3.9 (3.5-5.1) mmol/L Chloride 105 (98-107) mmol/L Carbon Dioxide 27.2 (21.0-32.0) mmol/L Anion Gap 13.7 (5.0-15.0) mmol/L BUN 11 (8-26) mg/dL Creatinine 0.73 (0.55-1.02) mg/dL Est Cr Clr Drug Dosing TNP Estimated GFR (MDRD) > 60 (>60) MLS/MIN BUN/Creatinine Ratio 15.1 (6-25) Glucose 128 H (74-100) mg/dL Calcium 8.1 L (8.5-10.1) mg/dL Total Bilirubin 0.1 D (0.0-1.0) mg/dL AST 40 H (15-37) U/L ALT 72 (12-78) U/L Alkaline Phosphatase 95 (46-116) U/L Total Protein 6.4 (6.4-8.2) g/dL Albumin 2.9 L (3.4-5.0) g/dL Globulin 3.5 (2.2-4.2) g/dL Albumin/Globulin Ratio 0.8 (0.8-2.0) Urine Color Yellow Urine Appearance Clear (CLEAR) Urine pH 6.5 (5.0-8.0) Ur Specific [place] 1.020 (1.003-1.030) Urine Protein Negative (NEGATIVE) mg/dL Urine Glucose (UA) Negative (NEGATIVE) mg/dL Urine Ketones Negative (NEGATIVE) mg/dL Urine Occult Blood Negative (NEGATIVE) Urine Nitrite Negative (NEGATIVE) Urine Bilirubin Negative (NEGATIVE) Urine Urobilinogen 0.2 (0.2-1.0) E.U./dL Ur Leukocyte Esterase Negative (NEGATIVE) Urine RBC Not seen /HPF Urine WBC 0-5 H /HPF Ur Squamous Epith Cells Few /HPF Urine Bacteria Not seen /HPF Urine Opiates Screen (NEGATIVE) Ur Oxycodone Screen (NEGATIVE) Urine Methadone Screen (NEGATIVE) U Acetaminophen Screen (NEGATIVE) Ur Barbiturates Screen (NEGATIVE) Ur Tricyclics Screen (NEGATIVE) Ur Phencyclidine Scrn (NEGATIVE) Ur Amphetamine Screen (NEGATIVE) U Methamphetamines Scrn (NEGATIVE) U Benzodiazepines Scrn (NEGATIVE) U Cocaine Metab Screen (NEGATIVE) U Marijuana (THC) Screen (NEGATIVE) Ethyl Alcohol 163.0 H (0.0-0.0) mg/dL 03/07/17 Range/Units 04:00 WBC (4.0-11.0) K/uL RBC (3.80-5.80) M/uL Hgb (11.5-16.5) g/dL Hct (37.0-47.0) % MCV (76-96) fL MCH (27.0-32.0) pg MCHC (31.0-35.0) g/dL RDW (11.0-16.0) % Plt Count (150-500) K/uL MPV (6.0-10.0) fL Neut % (Auto) (45.0-70.0) % Lymph % (Auto) (20.0-40.0) % Russell % (Auto) (3.0-10.0) % Eos % (Auto) (1.0-5.0) % Baso % (Auto) (0.0-0.5) % Neut # (Auto) (2.00-7.50) K/uL Lymph # (Auto) (1.50-4.00) K/uL [place] # (Auto) (0.20-0.80) K/uL Eos # (Auto) (0.04-0.40) K/uL Baso # (Auto) (0.02-0.10) K/uL Sodium (136-145) mmol/L Potassium (3.5-5.1) mmol/L Chloride (98-107) mmol/L Carbon Dioxide (21.0-32.0) mmol/L Anion Gap (5.0-15.0) mmol/L BUN (8-26) mg/dL Creatinine (0.55-1.02) mg/dL Est Cr Clr Drug Dosing Estimated GFR (MDRD) (>60) MLS/MIN BUN/Creatinine Ratio (6-25) Glucose (74-100) mg/dL Calcium (8.5-10.1) mg/dL Total Bilirubin (0.0-1.0) mg/dL AST (15-37) U/L ALT (12-78) U/L Alkaline Phosphatase (46-116) U/L Total Protein (6.4-8.2) g/dL Albumin (3.4-5.0) g/dL Globulin (2.2-4.2) g/dL Albumin/Globulin Ratio (0.8-2.0) Urine Color Urine Appearance (CLEAR) Urine pH (5.0-8.0) Ur Specific [place] (1.003-1.030) Urine Protein (NEGATIVE) mg/dL Urine Glucose (UA) (NEGATIVE) mg/dL Urine Ketones (NEGATIVE) mg/dL Urine Occult Blood (NEGATIVE) Urine Nitrite (NEGATIVE) Urine Bilirubin (NEGATIVE) Urine Urobilinogen (0.2-1.0) E.U./dL Ur Leukocyte Esterase (NEGATIVE) Urine RBC /HPF Urine WBC /HPF Ur Squamous Epith Cells /HPF Urine Bacteria /HPF Urine Opiates Screen Negative (NEGATIVE) Ur Oxycodone Screen Negative (NEGATIVE) Urine Methadone Screen Negative (NEGATIVE) U Acetaminophen Screen Negative (NEGATIVE) Ur Barbiturates Screen Negative (NEGATIVE) Ur Tricyclics Screen Positive H (NEGATIVE) Ur Phencyclidine Scrn Negative (NEGATIVE) Ur Amphetamine Screen Negative (NEGATIVE) U Methamphetamines Scrn Negative (NEGATIVE) U Benzodiazepines Scrn Negative (NEGATIVE) U Cocaine Metab Screen Negative (NEGATIVE) U Marijuana (THC) Screen Negative (NEGATIVE) Ethyl Alcohol (0.0-0.0) mg/dL Meds: Medications Discontinued Medications Generic Name Dose Route Start Last Admin Trade Name Freq PRN Reason Stop Dose Admin Acetaminophen 650 mg 03/07/17 08:19 03/07/17 09:39 Tylenol PO 03/07/17 08:20 Not Given NOW ONE Acetaminophen Confirm 03/07/17 08:27 03/07/17 08:51 Tylenol Arthritis Pain Administered 03/07/17 08:28 650 mg Dose Administration 650 mg .ROUTE .STK-MED ONE Albuterol 0 gm 03/07/17 05:50 Ventolin Hfa INH Q6H PRN Shortness of Breath Cetirizine HCl 10 mg 03/07/17 05:50 Zyrtec PO DAILY PRN Allergies Cyclobenzaprine HCl 10 mg 03/07/17 20:00 Flexeril PO BEDTIME [facility] Desvenlafaxine Succinate 100 mg 03/07/17 08:00 03/07/17 09:38 Pristiq PO Not Given DAILY [facility] Sodium Chloride 1,000 mls @ 250 mls/hr 03/07/17 05:45 Normal Saline IV ASDIRECTED [facility] Ketorolac Tromethamine Confirm 03/07/17 04:38 03/07/17 05:40 Toradol Administered 03/07/17 04:39 30 mg Dose Administration 30 mg .ROUTE .STK-MED ONE Lorazepam 0.5 mg 03/07/17 05:50 03/07/17 06:54 Ativan IVPUSH 0.5 mg Q4H PRN Administration Anxiety Meloxicam 15 mg 03/07/17 08:00 03/07/17 09:38 Mobic PO Not Given BIDMEALS [facility] Methocarbamol 500 mg 03/07/17 05:50 Robaxin PO TID PRN Pain Naloxone HCl 2 mg 03/07/17 05:19 03/07/17 03:15 Narcan IM 03/07/17 05:20 2 mg ONETIME PRN Administration drug overdose Non-Formulary Medication 100 mg 03/07/17 08:00 Lamotrigine [Lamotrigine] PO DAILY [facility] Ondansetron HCl 4 mg 03/07/17 05:45 Zofran IV Q4H PRN Nausea/Vomiting Pantoprazole Sodium 40 mg 03/07/17 07:00 03/07/17 09:42 Protonix PO 40 mg ACBREAKFAST TYREL Administration Prednisone 5 mg 03/08/17 07:00 Prednisone PO WITHBREAKFAST [facility] Propranolol HCl 60 mg 03/08/17 08:00 Inderal La PO DAILY [facility] Sodium Chloride 10 ml 03/07/17 05:38 Saline Flush FLUSH ASDIRECTED PRN Keep Vein Open Sumatriptan Succinate mg 03/07/17 05:50 Imitrex PO Q2HR PRN Migraine Trazodone HCl 100 mg 03/07/17 05:50 Trazodone PO QPM PRN Insomnia - Re-Assessments/Exams Free Text/Narrative Re-Assessment/Exam: Close monitoring and re-evaluation every few minutes. Patient slowly increased in responsiveness and was able to inform us of her use of marijuana and alcohol but denies other drugs. Patient has had left thigh spasms intermittently. GCS increasing with continued fluids and stabilization. Free Text/Narrative Re-Assessment/Exam: Continue to recheck vitals and responsiveness and gradual improvement to maintain safe airway. Did not have to bag as respirations remained stable after head tilt and chin lift with stable oxygen saturation 96-100% despite GSC scoring. (History of EMT states she required 3-4 chest compressions at one point and then patient responded after the 5th compression and began to breath again) Patient has not shown any respiratory compromise after stabilization of her airway. Departure - Departure Time of Disposition: 05:30 Disposition: Admitted As Inpatient 65 Condition: undetermined Clinical Impression: Marijuana use, episodic, Acute respiratory failure with hypoxia Acute alcoholic intoxication Qualifiers: Complication of substance-induced condition: with unspecified complication Qualified Code(s): F10.129 - Alcohol abuse with intoxication, unspecified - Problem List & Annotations (1) Pain in left thigh SNOMED Code(s): 35238660 Code(s): M79.652 - PAIN IN LEFT THIGH Status: Acute Priority: Low (2) Acute alcoholic intoxication SNOMED Code(s): 95366484 Code(s): F10.129 - ALCOHOL ABUSE WITH INTOXICATION, UNSPECIFIED Status: Acute Priority: High Qualifiers: Complication of substance-induced condition: with unspecified complication Qualified Code(s): F10.129 - Alcohol abuse with intoxication, unspecified (3) Acute respiratory failure with hypoxia SNOMED Code(s): 94187194, 915121063 Code(s): J96.01 - ACUTE RESPIRATORY FAILURE WITH HYPOXIA Status: Suspected Priority: High (4) Marijuana use, episodic SNOMED Code(s): 564677813 Code(s): F12.90 - CANNABIS USE, UNSPECIFIED, UNCOMPLICATED Status: Acute Priority: High - Problem List Review Problem List Initiated/Reviewed/Updated: Yes - Assessment/Plan Plan: Patient admitted for telemetry and monitoring. Significant other to stay at bedside. Ativan temporarily for anxiousness and resultant tachycardia. Patient stable with frequent left thigh cramping. Patient oxygen saturation remains in the high 90's without support and on room air. We will continue NC 2L as needed for comfort. Patient was able to go to use the restroom with assistance after stabilization and admission. There has been a significant improvement since arrival in the ER.
[2017-03-07] MEDS ORDERED: Ketorolac 30 MG/ML SDV ONE (04:38)
[2017-03-07] MEDS ORDERED: Naloxone 2 MG/2 ML Syringe IM PRN (05:19)
[2017-03-07] MEDS ORDERED: Sodium Chloride 0.9% 10 ML Syringe FLUSH PRN (05:38)
[2017-03-07] MEDS ORDERED: Ondansetron 4 MG/2 ML SDV IV PRN (05:45)
[2017-03-07] MEDS ORDERED: Sodium Chloride 0.9% 1,000 ML IV SCH (05:45)
[2017-03-07] MEDS ORDERED: LORazepam 2 MG/ML MDV IVPUSH PRN (05:50)
[2017-03-07] MEDS ORDERED: Methocarbamol 500 MG Tab PO PRN (05:50)
[2017-03-07] MEDS ORDERED: SUMAtriptan 25 MG Tab PO PRN (05:50)
[2017-03-07] MEDS ORDERED: Albuterol 8 GM Inhaler INH PRN (05:50)
[2017-03-07] MEDS ORDERED: traZODone 100 MG Tab PO PRN (05:50)
[2017-03-07] MEDS ORDERED: Cetirizine 10 MG Tab PO PRN (05:50)
[2017-03-07] MEDS ORDERED: Pantoprazole 40 MG Tab.CR PO SCH (07:00)
[2017-03-07] MEDS ORDERED: LAMOTRIGINE 100 MG PO SCH (08:00)
[2017-03-07] MEDS ORDERED: Desvenlafaxine 50 MG Tab.ER PO SCH (08:00)
[2017-03-07] MEDS ORDERED: Acetaminophen 325 MG Tab PO ONE (08:19)
[2017-03-07] MEDS ORDERED: Acetaminophen 650 MG Tab.ER ONE (08:27)
--- NOTE | 2017-03-07 09:19 | CT ---
Date of Service: 03/07/17 Clinical Data: RESPIRATORY PROBLEMS,SEVERE BACK PAIN AND CRAMPING UNENHANCED CHEST CT Multislice acquisition through the chest without IV contrast was performed. There are mild atelectatic changes in the dependent portion of both lower lungs and both lung bases. The lungs are otherwise clear. No pneumothorax. No pleural effusions. The heart size is normal. There is very minimal pericardial effusion. No hilar or mediastinal adenopathy. The exam is otherwise unremarkable. UNENHANCED ABDOMEN AND PELVIC CT Multislice acquisition through the abdomen and pelvis without IV or oral contrast was performed. Comparison is made to a prior unenhanced abdomen and pelvic CT dated 2016. The liver, spleen, pancreas, and right and left kidneys are stable. The right and left adrenals are stable. The right and left kidneys are stable. No nephrocalcinosis or nephrolithiasis. No hydronephrosis or hydroureter. The bladder is fluid-filled and mildly distended. There is gas within the bladder most likely related to prior catheterization. The appendix is not dilated. No evidence of appendicitis. No free air. No free fluid. No dilated loops of bowel. No adenopathy. No aortic aneurysm. IMPRESSION: No acute abnormalities. [id number] [facility]
[2017-03-07 10:18] VITALS: BP 135/82
--- NOTE | 2017-03-07 12:19 | PCM.DCSUM1 ---
Discharge Summary - Discharge Data Discharge Date: 03/07/17 Discharge Disposition: Home, Self-Care 01 Condition: Good - Discharge Diagnosis/Problem(s) (1) Pain in left thigh SNOMED Code(s): 45319606 ICD Code: M79.652 - PAIN IN LEFT THIGH Status: Resolved Priority: Low (2) Acute alcoholic intoxication SNOMED Code(s): 38604067 ICD Code: F10.129 - ALCOHOL ABUSE WITH INTOXICATION, UNSPECIFIED Status: Resolved Priority: High Qualifiers: Complication of substance-induced condition: with unspecified complication Qualified Code(s): F10.129 - Alcohol abuse with intoxication, unspecified (3) Acute respiratory failure with hypoxia SNOMED Code(s): 38747305, 113401231 ICD Code: J96.01 - ACUTE RESPIRATORY FAILURE WITH HYPOXIA Status: Resolved Priority: High (4) Marijuana use, episodic SNOMED Code(s): 463211743 ICD Code: F12.90 - CANNABIS USE, UNSPECIFIED, UNCOMPLICATED Status: Resolved Priority: High - Patient Instructions Diet: GI Soft/Low Residue/Low Fiber Activity: As Tolerated, Bedrest Driving: Do Not Drive - Discharge Plan Home Medications: Home Meds Albuterol [Proair HFA] 1 - 2 puff INH Q6HR PRN 03/08/16 [History] Desvenlafaxine [Pristiq] 100 mg PO DAILY 03/08/16 [History] Gabapentin [Gabapentin] 900 mg PO TID 03/08/16 [History] Pantoprazole Sodium [Protonix] 40 mg PO ACBREAKFAST 03/08/16 [History] SUMAtriptan Succinate [Sumatriptan Succinate] 1 tab PO Q2HR PRN 03/08/16 [ History] Triamcinolone Acetonide [Nasacort AQ [place]] 1 spray VIOLA ASDIRECTED 03/08/16 [ History] lamoTRIgine [Lamotrigine] 100 mg PO DAILY 03/08/16 [History] traZODone HCl [Trazodone HCl] 100 mg PO QPM PRN 03/08/16 [History] Cetirizine [ZyrTEC] 10 mg PO DAILY PRN 12/09/16 [History] Cyclobenzaprine [Flexeril] 10 mg PO BEDTIME #25 tab 12/09/16 [Rx] Meloxicam [Meloxicam] 15 mg PO BID 12/09/16 [History] Methocarbamol [Methocarbamol] 500 mg PO TID PRN 12/09/16 [History] Patient Handouts: Accidental Overdose, Drug Overdose Forms: ED Department Discharge - Discharge Summary/Plan Comment DC Time >30 min.: Yes Discharge Summary/Plan Comment: Counseled on close f/u in clinic. Patient has been very stable since admission with no concerns. Patient states all her symptoms have resolved. Symptoms appear to have resolved with the alcohol intoxication and marijuana use. Counseled on alcohol cessation and marijuana cessation. Discussed adverse events from the use of alcohol, Marijuana and medications. Patient states this will never happen again. Patient counseled on f/u in clinic and ER. Patient agrees to f/u instructions. - Patient Data Vitals - Most Recent: Last Vital Signs Temp 36.6 C 03/07/17 09:38 Pulse 115 H 03/07/17 09:38 Resp 16 03/07/17 09:38 BP 135/82 03/07/17 09:38 Pulse Ox 99 03/07/17 09:38 Weight - Most Recent: 107.048 kg I&O - Last 24 hours: Intake & Output 03/06/17 03/07/17 03/07/17 22:59 06:59 14:59 Intake Total 0 Balance 0 Lab Results - Last 24 hrs: Laboratory Results - last 24 hr 03/07/17 Range/Units 05:17 VBG pH 7.49 H (7.31-7.41) Med Orders - Current: Current Medications Discontinued Medications Acetaminophen (Tylenol) 650 mg PO NOW ONE Stop: 03/07/17 08:20 Last Admin: 03/07/17 09:39 Dose: Not Given Acetaminophen (Tylenol Arthritis Pain) Confirm Administered Dose 650 mg .ROUTE .STK-MED ONE Stop: 03/07/17 08:28 Last Admin: 03/07/17 08:51 Dose: 650 mg Albuterol (Ventolin Hfa) 0 gm INH Q6H PRN PRN Reason: Shortness of Breath Cetirizine HCl (Zyrtec) 10 mg PO DAILY PRN PRN Reason: Allergies Cyclobenzaprine HCl (Flexeril) 10 mg PO BEDTIME [facility] Desvenlafaxine Succinate (Pristiq) 100 mg PO DAILY [facility] Last Admin: 04/16/17 09:38 Dose: Not Given Sodium Chloride (Normal Saline) 1,000 mls @ 250 mls/hr IV ASDIRECTED [facility] Ketorolac Tromethamine (Toradol) Confirm Administered Dose 30 mg .ROUTE .STK- MED ONE Stop: 03/07/17 04:39 Last Admin: 03/07/17 05:40 Dose: 30 mg Lorazepam (Ativan) 0.5 mg IVPUSH Q4H PRN PRN Reason: Anxiety Last Admin: 03/07/17 06:54 Dose: 0.5 mg Meloxicam (Mobic) 15 mg PO BIDMEALS TYREL Last Admin: 03/07/17 09:38 Dose: Not Given Methocarbamol (Robaxin) 500 mg PO TID PRN PRN Reason: Pain Naloxone HCl (Narcan) 2 mg IM ONETIME PRN PRN Reason: drug overdose Stop: 03/07/17 05:20 Last Admin: 03/07/17 03:15 Dose: 2 mg Non-Formulary Medication (Lamotrigine [Lamotrigine]) 100 mg PO DAILY [facility] Ondansetron HCl (Zofran) 4 mg IV Q4H PRN PRN Reason: Nausea/Vomiting Pantoprazole Sodium (Protonix) 40 mg PO ACBREAKFAST [facility] Last Admin: 03/07/17 09:42 Dose: 40 mg Prednisone (Prednisone) 5 mg PO WITHBREAKFAST [facility] Propranolol HCl (Inderal La) 60 mg PO DAILY [facility] Sodium Chloride (Saline Flush) 10 ml FLUSH ASDIRECTED PRN PRN Reason: Keep Vein Open Sumatriptan Succinate (Imitrex) mg PO Q2HR PRN PRN Reason: Migraine Trazodone HCl (Trazodone) 100 mg PO QPM PRN PRN Reason: Insomnia *Q Meaningful Use (DIS) - VTE *Q VTE Criteria *Q: - Stroke *Q Stroke Criteria *Q: - AMI *Q AMI Criteria *Q:
[2017-03-07] MEDS ORDERED: Cyclobenzaprine 10 MG Tab PO SCH (20:00)
[2017-03-08] MEDS ORDERED: predniSONE 5 MG Tab PO SCH (07:00)
[2017-03-08] MEDS ORDERED: Propranolol 60 MG Cap.ER PO SCH (08:00)
== END 2017-03-07 11:15 | disposition home or self-care (01) | DRG 189 ==
LOC: LB.ED 02:39 → UNDOADMIN 04:30 → LB.MS 04:30 → UNDODISIN 11:15
PROVIDERS: ADMIT Family Medicine; ATTEND Family Medicine
DX: J96.01 Acute respiratory failure with hypoxia (principal); F10.129 Alcohol abuse with intoxication, unspecified; F12.90 Cannabis use, unspecified, uncomplicated; F31.9 Bipolar disorder, unspecified; I10 Essential (primary) hypertension; K21.9 Gastro-esophageal reflux disease without esophagitis; M54.9 Dorsalgia, unspecified; G89.29 Other chronic pain; F41.9 Anxiety disorder, unspecified; M79.652 Pain in left thigh; H54.7 Unspecified visual loss; Y90.6 Blood alcohol level of 120-199 mg/100 ml; G43.909 Migraine, unspecified, not intractable, without status migrainosus; Z72.0 Tobacco use; F39 Unspecified mood [affective] disorder; Z88.1 Allergy status to other antibiotic agents; Z88.0 Allergy status to penicillin; Z91.048 Other nonmedicinal substance allergy status
CPT/HCPCS: 36415; 71250; 74176; 80053; 80307; 81001; 82800; 85025; 96372; 99284-25; A0425; A0429; A9270-GY; G0480; J1885; J2060; J2310

== ENCOUNTER 2017-03-11 14:34 | Emergency (ER) | payer MEDICAID ==
[2017-03-11 15:11] VITALS: BP 145/62
--- NOTE | 2017-03-11 16:33 | EDM.PDOC ---
ED HPI GENERAL MEDICAL PROBLEM - General Chief Complaint: General Stated Complaint: PAIN Time Seen by Provider: 03/11/17 14:45 Source of Information: Reports: Patient History Limitations: Reports: No limitations - History of Present Illness INITIAL COMMENTS - FREE TEXT/NARRATIVE: According to patient she woke up at 3 AM today with severe pain in her left thigh. Pain is in a localized spot over the left thigh, which is intense. Pain prevents her from standing or walking. Pt claims that about 4 months ago, she was trying to wear her boots and she felt a pop in her left thigh since then she has had significant workup, inlcuding MRI of the thigh which has been negative. No trauma to the thigh. No other complaint. She claims she has been taking gabapentin, mloxicam and flexeril with no relief. Onset: today Onset Date: 03/11/17 Onset Time: 03:00 - Related Data Allergies Allergy/AdvReac Type Severity Reaction Status Date / Time ampicillin Allergy Anaphylactic Verified 03/07/17 02:47 Shock Penicillins Allergy Yeast Verified 03/07/17 02:47 Infections plastic adhesive tape Allergy Blisters Uncoded 03/07/17 02:47 Home Meds: Home Meds Albuterol [Proair HFA] 1 - 2 puff INH Q6HR PRN 03/08/16 [History] Desvenlafaxine [Pristiq] 100 mg PO DAILY 03/08/16 [History] Gabapentin [Gabapentin] 900 mg PO TID 03/08/16 [History] Pantoprazole Sodium [Protonix] 40 mg PO ACBREAKFAST 03/08/16 [History] SUMAtriptan Succinate [Sumatriptan Succinate] 1 tab PO Q2HR PRN 03/08/16 [ History] Triamcinolone Acetonide [Nasacort AQ [place]] 1 spray VIOLA ASDIRECTED 03/08/16 [ History] lamoTRIgine [Lamotrigine] 100 mg PO DAILY 03/08/16 [History] traZODone HCl [Trazodone HCl] 100 mg PO QPM PRN 03/08/16 [History] Cetirizine [ZyrTEC] 10 mg PO DAILY PRN 12/09/16 [History] Cyclobenzaprine [Flexeril] 10 mg PO BEDTIME #25 tab 12/09/16 [Rx] Meloxicam [Meloxicam] 15 mg PO BID 12/09/16 [History] Methocarbamol [Methocarbamol] 500 mg PO TID PRN 12/09/16 [History] Past Medical History HEENT History: Reports: Impaired vision Other HEENT History: "Deviated septum showed on CT " Cardiovascular History: Reports: Hypertension Other Cardiovascular History: Took steroid for heart inflammation and fluid Respiratory History: Reports: Bronchitis, recurrent, SOB Gastrointestinal History: Reports: Chronic constipation, Chronic diarrhea, GERD Other Gastrointestinal History: chronic abdominal pain 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 - Infectious Disease History Infectious Disease History: Reports: Chicken pox - Past Surgical History Cardiovascular Surgical History: Reports: None Respiratory Surgical History: Reports: None Neurological Surgical History: Reports: Other (see below) Other Neurological Surgeries/Procedures: Back Surgery for Herniated Disk Musculoskeletal Surgical History: Reports: None, Other (see below) Other Musculoskeletal Surgeries/Procedures:: back surg lower back herniated disc Social & Family History - Family History Family Medical History: Noncontributory Psychiatric: Reports: Anxiety, Bipolar, Depression - Tobacco Use Smoking Status *Q: Current Status Unknown Years of Tobacco use: 21 Packs/Tins Daily: 2 Used Tobacco, but Quit: No Second Hand Smoke Exposure: Yes - Caffeine Use Caffeine Use: Reports: Coffee - Alcohol Use Days Per Week of Alcohol Use: 1 Number of Drinks Per Day: 9 Total Drinks Per Week: 9 - Recreational Drug Use Recreational Drug Use: Yes Drug Use in Last 12 Months: Yes Recreational Drug Type: Reports: Marijuana/Hashish - Living Situation & Occupation Living situation: Reports: single ED ROS GENERAL - Review of Systems Review Of Systems: See Below Constitutional: Denies: fever, chills HEENT: Denies: Eye discharge, Nose pain, Rhinitis Respiratory: Denies: Shortness of Breath, Cough, Sputum Cardiovascular: Denies: Chest pain, Blood pressure problem Endocrine: Denies: fatigue, high glucose GI/Abdominal: Denies: Abdominal pain, Anorexia : Denies: dysuria, flank pain Musculoskeletal: Denies: shoulder pain, foot pain, joint pain, joint swelling Skin: Denies: pruritis, rash ED EXAM, GENERAL - Physical Exam Exam: See Below Exam Limited By: No limitations General Appearance: alert, WD/WN, no apparent distress, anxious, other (tearful) Eye Exam: bilateral eye: EOMI, PERRL Ears: normal external exam, normal canal, hearing grossly normal, normal TMs Ear Exam: bilateral ear: auricle normal, canal normal, TM normal Nose: normal inspection, normal mucosa, no blood Throat/Mouth: Normal inspection, Normal lips, Normal teeth, Normal gums, Normal oropharynx, Normal voice, No airway compromise Head: atraumatic, normocephalic Neck: normal inspection, supple, non-tender, full range of motion Respiratory/Chest: no respiratory distress, lungs clear, normal breath sounds, no accessory muscle use, chest non-tender Cardiovascular: normal peripheral pulses, regular rate, rhythm, no edema, no gallop, no JVD, no murmur, no rub Extremities: normal inspection, normal range of motion, non-tender, no pedal edema, normal capillary refill, other (Left thigh: no obvious deformity. Able to stand, but refuses to walk from pain. Tender over a small area of posterior thigh over and area of 2 by 2 cms. No mass felt) Neurological: alert, oriented, CN II-XII intact, normal cognition, normal gait, normal reflexes, no motor/sensory deficits Course - Vital Signs Text/Narrative:: Pt's Xray of left femur is normal. Her D-Dimer is negative. Her recent MRI of left thigh is normal. Pt has has this pain for 4 month which has exacerbated since 3 am. I have advised patient cold compresses to the are. I did give her 3 cc of 1 % lido locally into the soft tissue, pain improved, but weight bear on the leg but reuses to walk. Pt does have exaggerated pain response. I have advised her to followup with her primary care physician on wednesday. She has been told that she has neurology appointment. Advised to talk her PCP. Pt AGREES WITH THE PLAN. Last Recorded V/S: Last Vital Signs Temp 98.7 F 03/11/17 15:10 Pulse 109 H 03/11/17 15:10 Resp 12 03/11/17 15:10 BP 145/62 H 03/11/17 15:10 Pulse Ox 98 03/11/17 15:10 - Orders/Labs/Meds Orders: Active Orders 24 hr Category Date Time Status Femur Min 1V Lt [CR] Stat Exams 03/11/17 15:08 Taken Labs: Laboratory Tests 03/11/17 Range/Units 15:25 D-Dimer, Quantitative < 100 (0-400) ng/mL Departure - Departure Time of Disposition: 16:30 Disposition: Home, Self-Care 01 Condition: fair Clinical Impression: Thigh pain Instructions: Muscle Strain, [id number] Referrals: PCP,Unknown [Primary Care Provider] - Forms: ED Department Discharge Additional Instructions: Call Dr. Smith's office on Wednesday to find out when your neurology appointment will be. - Problem List & Annotations (1) Pain in left thigh SNOMED Code(s): 90833780 Code(s): M79.652 - PAIN IN LEFT THIGH Status: Resolved Priority: Low - Problem List Review Problem List Initiated/Reviewed/Updated: Yes - My Orders Last 24 Hours: My Active Orders 03/11/17 15:08 Femur Min 1V Lt [CR] Stat - Assessment/Plan Last 24 Hours: My Active Orders 03/11/17 15:08 Femur Min 1V Lt [CR] Stat Assessment:: Left thigh pain Plan: Pt's Xray of left femur is normal. Her D-Dimer is negative. Her recent MRI of left thigh is normal. Pt has has this pain for 4 month which has exacerbated since 3 am. I have advised patient cold compresses to the are. I did give her 3 cc of 1 % lido locally into the soft tissue, pain improved, but weight bear on the leg but reuses to walk. Pt does have exaggerated pain response. I have advised her to followup with her primary care physician on wednesday. She has been told that she has neurology appointment. Advised to talk her PCP. Pt AGREES WITH THE PLAN.
--- NOTE | 2017-03-11 21:59 | CR ---
DATE OF SERVICE: 03/11/2017 CLINICAL DATA: Thigh pain. LEFT FEMUR Only AP views were obtained. A lateral view was not obtained. I do not see evidence of a fracture or dislocation; however, a fracture cannot be completely excluded. No lytic or blastic bone lesions. IMPRESSION: Incomplete exam. [id number] [facility]
== END 2017-03-11 16:36 | disposition home or self-care (01) ==
LOC: LB.ED 14:34
DX: M79.652 Pain in left thigh (principal); I10 Essential (primary) hypertension; K21.9 Gastro-esophageal reflux disease without esophagitis; F41.9 Anxiety disorder, unspecified; G43.909 Migraine, unspecified, not intractable, without status migrainosus; F31.9 Bipolar disorder, unspecified; D64.9 Anemia, unspecified; Z98.890 Other specified postprocedural states; Z88.1 Allergy status to other antibiotic agents; Z91.09 Other allergy status, other than to drugs and biological substances; Z79.899 Other long term (current) drug therapy
CPT/HCPCS: 36415; 73551-LT; 85379; 99283

== ENCOUNTER 2017-03-19 15:09 | Emergency (ER) | payer MEDICAID ==
[2017-03-19 15:31] VITALS: BP 129/55
[2017-03-19] MEDS ORDERED: Ketorolac 60 MG/2 ML SDV ONE (15:48)
[2017-03-19] MEDS ORDERED: Ketorolac 60 MG/2 ML SDV IM ONE (15:50)
--- NOTE | 2017-03-19 23:31 | ER ---
HPI: A 36-year-old, the lady here with her with complaints of left leg pain, both thigh and lower leg. The patient states that it is severe at times. She has been taking Neurontin as well as a muscle relaxer and ibuprofen, but it does not seem to help. She quit taking her medications today, and she wants to save what she has left for the weekend. The patient denies any recent falls or injuries. She has been seen many times for this pain recently and tells me that nothing ever seems to really fix it. Toradol does seem to help her pain temporarily. The patient states that her next appointment with her primary care provider is on March 26. OBJECTIVE: GENERAL APPEARANCE: The patient is awake, she is crying in the exam room. VITAL SIGNS: Reviewed as listed. Physical exam: Examining the patient's left leg reveals the skin is intact. There is tenderness diffusely with palpation along the lateral aspect of the left thigh and the posterior aspect of the lower leg down to the foot. The foot, she states is numb. Color is good involving the skin. DIAGNOSIS: Myalgia of the left leg. Chronic. TREATMENT PLAN: Toradol 60 mg will be given IM. The patient will also be started on Toradol tablets 1 tablet every 6 hours with food for the next 4 days and she is to stop using any anti-inflammatory medication such as ibuprofen or Motrin while on the Toradol. I advised patient to resume using her other medications tomorrow as directed and she needs to be following up with her primary care provider next week as soon as possible for further evaluation. RICCARDO/LYNNE /[id number] LUCIAN
== END 2017-03-19 16:09 | disposition home or self-care (01) ==
LOC: LB.ED 15:09
DX: M79.1 Myalgia (principal)
CPT/HCPCS: 96372; 99283; J1885; 99282

== ENCOUNTER 2017-04-30 15:47 | Emergency (ER) | payer MEDICAID ==
[2017-04-30] MEDS ORDERED: Ketorolac 30 MG/ML SDV IM ONE (16:23)
[2017-04-30] MEDS ORDERED: Ketorolac 30 MG/ML SDV ONE (16:25)
--- NOTE | 2017-04-30 16:51 | EDM.PDOC ---
ED HPI GENERAL MEDICAL PROBLEM - General Stated Complaint: BACK PAIN Time Seen by Provider: 04/30/17 16:00 Source of Information: Reports: Patient History Limitations: Reports: No Limitations - History of Present Illness INITIAL COMMENTS - FREE TEXT/NARRATIVE: According to patient she has been having sever pain in her left lower back and buttock. PAin started to get worse today, but has been going on for several years now. She claims her buttock bone is and pulling of all the muscles. rate her pain at 10/10 and is crying loud and tearful . She claims she has seen the neurologist in [place], and has been referring her now to neurosurgeon. No radiating of pain. She claims she cannot walk or move. Pt is in the emergency room very frequently with pain complains and very hysterical. Location: Reports: Back Quality: Reports: Ache Severity: Severe Improves with: Reports: None Worsens with: Reports: None Associated Symptoms: Denies: Confusion, Chest Pain, Cough, Fever/Chills, Loss of Appetite, Nausea/Vomiting, Rash, Shortness of Breath, Weakness Treatments OVEN BAKER: Reports: Cold Therapy, Other Medication(s) Other Treatments OVEN BAKER: gabapentin, hydrocodone @1200 Left Leg Pain Score (Numeric/FACES): 10 - Related Data Allergies Allergy/AdvReac Type Severity Reaction Status Date / Time ampicillin Allergy Anaphylactic Verified 04/30/17 15:59 Shock Penicillins Allergy Yeast Verified 04/30/17 15:59 Infections plastic adhesive tape Allergy Blisters Uncoded 04/30/17 15:59 Home Meds: Home Meds Albuterol [Proair HFA] 1 - 2 puff INH Q6HR PRN 03/08/16 [History] Desvenlafaxine [Pristiq] 100 mg PO DAILY 03/08/16 [History] Gabapentin [Gabapentin] 900 mg PO TID 03/08/16 [History] Pantoprazole Sodium [Protonix] 40 mg PO ACBREAKFAST 03/08/16 [History] SUMAtriptan Succinate [Sumatriptan Succinate] 1 tab PO Q2HR PRN 03/08/16 [ History] Triamcinolone Acetonide [Nasacort AQ [place]] 1 spray [place] ASDIRECTED 03/08/16 [ History] lamoTRIgine [Lamotrigine] 100 mg PO DAILY 03/08/16 [History] traZODone HCl [Trazodone HCl] 100 mg PO QPM PRN 03/08/16 [History] Cetirizine [ZyrTEC] 10 mg PO DAILY PRN 12/09/16 [History] Cyclobenzaprine [Flexeril] 10 mg PO BEDTIME #25 tab 12/09/16 [Rx] Meloxicam [Meloxicam] 15 mg PO BID 12/09/16 [History] Methocarbamol [Methocarbamol] 500 mg PO TID PRN 12/09/16 [History] Propranolol HCl [Inderal [place]] 60 mg PO DAILY 03/19/17 [History] Hydrocodone/Acetaminophen [Hydrocodon-Acetaminophen 5-325] 1 tab PO Q6HRRT PRN 04/30/17 [History] Past Medical History HEENT History: Reports: Impaired Vision Other HEENT History: "Deviated septum showed on CT " Cardiovascular History: Reports: Hypertension Other Cardiovascular History: Took steroid for heart inflammation and fluid Respiratory History: Reports: Bronchitis, Recurrent, SOB Gastrointestinal History: Reports: Chronic Constipation, Chronic Diarrhea, GERD Other Gastrointestinal History: chronic abdominal pain 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 - Infectious Disease History Infectious Disease History: Reports: Chicken Pox - Past Surgical History Neurological Surgical History: Reports: Other (See Below) Musculoskeletal Surgical History: Reports: None, Other (See Below) Social & Family History - Family History Family Medical History: Noncontributory Psychiatric: Reports: Anxiety, Bipolar, Depression - Tobacco Use Smoking Status *Q: Current Status Unknown Years of Tobacco use: 21 Packs/Tins Daily: 2 Used Tobacco, but Quit: No Second Hand Smoke Exposure: Yes - Caffeine Use Caffeine Use: Reports: Coffee - Alcohol Use Days Per Week of Alcohol Use: 1 Number of Drinks Per Day: 9 Total Drinks Per Week: 9 - Recreational Drug Use Recreational Drug Use: Yes Drug Use in Last 12 Months: Yes Recreational Drug Type: Reports: Marijuana/Hashish - Living Situation & Occupation Living situation: Reports: Single ED ROS GENERAL - Review of Systems Review Of Systems: See Below Constitutional: Denies: Fever, Chills HEENT: Denies: Rhinitis, Sinus Problem, Throat Pain Respiratory: Denies: Cough, Sputum Cardiovascular: Denies: Blood Pressure Problem GI/Abdominal: Denies: Abdominal Pain, Nausea, Vomiting : Denies: Flank Pain, Frequency Musculoskeletal: Reports: Back Pain Skin: Denies: Pruritis, Rash ED EXAM, GENERAL - Physical Exam Exam: See Below Exam Limited By: No Limitations General Appearance: Alert, WD/WN, Other (Pt is very dramatic and hysterical in the exam room. Cryingout loud and hugging her boyfriend.) Eye Exam: Bilateral Eye: EOMI, PERRL Head: Atraumatic, Normocephalic Neck: Normal Inspection, Supple, Non-Tender, Full Range of Motion Respiratory/Chest: No Respiratory Distress, Lungs Clear, Normal Breath Sounds, No Accessory Muscle Use, Chest Non-Tender Cardiovascular: Normal Peripheral Pulses, Regular Rate, Rhythm, No Edema, No Gallop, No JVD, No Murmur, No Rub Extremities: Normal Range of Motion, No Pedal Edema, Normal Capillary Refill, Other (There is old scar in the loer lumbar spine. Exagerrated pain response to pressure over the lower lumabr and left SI joitn region. She does have Good SLR in both extremities. Reflexes hard to evalaute due to patient's anxiety. Able to weight bear and she does get up and sit by herself for percussion of the spine.). No: Pedal Edema Course - Vital Signs Text/Narrative:: Pt's left SI joint xray appears normal. Pt reassured. She did receive toradol 30mg IM. Advised to continue her vicodin, miloxicam and flexeril. Intermittent heat ot the back. Followup with and her primary care provider next week. Pt has had very frequent emergency room visits, with some part of her body hurting and pain. It appears like she probably has some form of psychiatric disorder with somatic symptoms. She will needs counselling and psych evaluation. - Orders/Labs/Meds Orders: Active Orders 24 hr Category Date Time Status Sacroiliac Joint 2V [CR] Stat Exams 04/30/17 16:22 Taken Meds: Medications Discontinued Medications Generic Name Dose Route Start Last Admin Trade Name Freq PRN Reason Stop Dose Admin Ketorolac Tromethamine Confirm 04/30/17 16:25 04/30/17 16:25 Toradol Administered 04/30/17 16:26 Not Given Dose 30 mg .ROUTE .STK-MED ONE Ketorolac Tromethamine 30 mg 04/30/17 16:23 04/30/17 16:26 Toradol IM 04/30/17 16:24 30 mg ONETIME ONE Administration Departure - Departure Time of Disposition: 17:00 Disposition: Home, Self-Care 01 Condition: good Clinical Impression: Sacroiliac joint pain - Discharge Information - Problem List & Annotations (1) Sacroiliac joint pain SNOMED Code(s): 604449764 Code(s): M53.3 - SACROCOCCYGEAL DISORDERS, NOT ELSEWHERE CLASSIFIED Status : Acute Current Visit: Yes - Problem List Review Problem List Initiated/Reviewed/Updated: Yes - My Orders Last 24 Hours: My Active Orders 04/30/17 16:22 Sacroiliac Joint 2V [CR] Stat - Assessment/Plan Last 24 Hours: My Active Orders 04/30/17 16:22 Sacroiliac Joint 2V [CR] Stat Assessment:: Left SI joint pain Plan: Pt's left SI joint xray appears normal. Pt reassured. She did receive toradol 30mg IM. Advised to continue her vicodin, miloxicam and flexeril. Intermittent heat ot the back. Followup with and her primary care provider next week. Pt has had very frequent emergency room visits, with some part of her body hurting and pain. It appears like she probably has some form of psychiatric disorder with somatic symptoms. She will needs counselling and psych evaluation.
--- NOTE | 2017-04-30 17:58 | CR ---
Date of Service: 04/30/17 Clinical Data: Right lower back pain. SI JOINTS There are mild degenerative changes of the SI joints. No acute abnormalities. No lytic or blastic bone lesions. [id number] [facility]
== END 2017-04-30 17:00 | disposition home or self-care (01) ==
LOC: LB.ED 15:47
DX: M53.3 Sacrococcygeal disorders, not elsewhere classified (principal); I10 Essential (primary) hypertension; K21.9 Gastro-esophageal reflux disease without esophagitis; F41.9 Anxiety disorder, unspecified; F31.9 Bipolar disorder, unspecified; Z86.2 Personal history of diseases of the blood and blood-forming organs and certain disorders involving the immune mechanism; Z79.899 Other long term (current) drug therapy; Z88.0 Allergy status to penicillin; Z88.1 Allergy status to other antibiotic agents
CPT/HCPCS: 72200; 96372; 99283; J1885

== ENCOUNTER 2017-05-17 22:14 | Emergency (ER) | payer MEDICAID ==
[2017-05-17] MEDS ORDERED: Acetaminophen/oxyCODONE 325-5 MG Tab ONE (22:30)
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
[2017-05-18 04:44] VITALS: BP 137/95
== END 2017-05-17 22:38 | disposition home or self-care (01) ==
LOC: LB.ED 22:14
DX: M79.661 Pain in right lower leg (principal); H54.7 Unspecified visual loss; I10 Essential (primary) hypertension; F41.9 Anxiety disorder, unspecified; F31.9 Bipolar disorder, unspecified; Z88.1 Allergy status to other antibiotic agents; Z88.0 Allergy status to penicillin; Z79.899 Other long term (current) drug therapy; Z86.2 Personal history of diseases of the blood and blood-forming organs and certain disorders involving the immune mechanism; Z91.048 Other nonmedicinal substance allergy status; K21.9 Gastro-esophageal reflux disease without esophagitis; W19.XXXA Unspecified fall, initial encounter
CPT/HCPCS: 99282; 99283; A9270

== ENCOUNTER 2017-06-17 14:43 | Emergency (ER) | payer MEDICAID ==
[2017-06-17] MEDS ORDERED: Promethazine 25 MG/ML SDV IM ONE (15:15)
[2017-06-17] MEDS ORDERED: Promethazine 25 MG/ML SDV ONE (15:52)
[2017-06-17 16:31] VITALS: BP 155/87
--- NOTE | 2017-06-18 12:01 | CT ---
DATE OF SERVICE: 06/17/17 CLINICAL DATA: blood in stool, vomiting UNENHANCED CHEST CT: Multislice acquisition through the chest without IV contrast was performed. Comparison is made to a prior exam dated 03/07/17. There is a 4 mm pleural-based nodule in the left lower lobe laterally. It is unchanged from the prior exam. The lungs are otherwise clear. No pneumothorax. No pleural effusions. No areas of consolidation. No hilar or mediastinal adenopathy. The heart size is normal. No pericardial effusion. The exam is otherwise unremarkable. IMPRESSION: No acute abnormalities. UNENHANCED ABDOMEN AND PELVIC CT: Multislice acquisition through the abdomen and pelvis without IV or oral contrast was performed. Comparison is made to a prior exam dated 03/07/17. The liver, spleen, pancreas, right and left adrenals, and right and left kidneys are stable. No free air. No free fluid. No dilated loops of bowel. No adenopathy. No aortic aneurysm. IMPRESSION: No acute abnormalities. [id number] [facility]
--- NOTE | 2017-06-23 12:36 | EDM.PDOC ---
ED HPI GENERAL MEDICAL PROBLEM - General Chief Complaint: General Stated Complaint: EMESIS Time Seen by Provider: 06/17/17 15:00 Source of Information: Reports: Patient History Limitations: Reports: No Limitations - History of Present Illness INITIAL COMMENTS - FREE TEXT/NARRATIVE: This is a 36yo F here for pain all over. Patient cannot tell where the pain is at just 'all over'. She states it feels like in her abdominal area but no specific locations. She feels nauseated and wants to vomit. Onset: Today, Sudden Duration: Hour(s):, Getting Worse Location: Reports: Generalized Severity: Moderate Improves with: Reports: None Worsens with: Reports: None Associated Symptoms: Reports: Chest Pain, Loss of Appetite, Nausea/Vomiting Rectal Pain Score (Numeric/FACES): 10 - Related Data Allergies Allergy/AdvReac Type Severity Reaction Status Date / Time ampicillin Allergy Anaphylactic Verified 06/17/17 15:19 Shock Penicillins Allergy Yeast Verified 06/17/17 15:19 Infections plastic adhesive tape Allergy Blisters Uncoded 05/18/17 02:55 Home Meds: Home Meds Albuterol [Proair HFA] 1 - 2 puff INH Q6HR PRN 03/08/16 [History] Desvenlafaxine [Pristiq] 100 mg PO DAILY 03/08/16 [History] Gabapentin [Gabapentin] 900 mg PO TID 03/08/16 [History] Pantoprazole Sodium [Protonix] 40 mg PO ACBREAKFAST 03/08/16 [History] SUMAtriptan Succinate [Sumatriptan Succinate] 1 tab PO Q2HR PRN 03/08/16 [ History] Triamcinolone Acetonide [Nasacort AQ [place]] 1 spray VIOLA ASDIRECTED 03/08/16 [ History] lamoTRIgine [Lamotrigine] 100 mg PO DAILY 03/08/16 [History] traZODone HCl [Trazodone HCl] 100 mg PO QPM PRN 03/08/16 [History] Cetirizine [ZyrTEC] 10 mg PO DAILY PRN 12/09/16 [History] Cyclobenzaprine [Flexeril] 10 mg PO BEDTIME #25 tab 12/09/16 [Rx] Meloxicam [Meloxicam] 15 mg PO BID 12/09/16 [History] Methocarbamol [Methocarbamol] 500 mg PO TID PRN 12/09/16 [History] Propranolol HCl [Inderal LA] 60 mg PO DAILY 03/19/17 [History] Hydrocodone/Acetaminophen [Hydrocodon-Acetaminophen 5-325] 1 tab PO Q6HRRT PRN 04/30/17 [History] oxyCODONE HCl/Acetaminophen [oxyCODONE-Acetaminophen 5-325] 1 tab PO Q4H PRN [History] Past Medical History HEENT History: Reports: Impaired Vision Other HEENT History: "Deviated septum showed on CT " Cardiovascular History: Reports: Hypertension Other Cardiovascular History: Took steroid for heart inflammation and fluid Respiratory History: Reports: Bronchitis, Recurrent, SOB Gastrointestinal History: Reports: Chronic Constipation, Chronic Diarrhea, GERD Other Gastrointestinal History: chronic abdominal pain 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 - Infectious Disease History Infectious Disease History: Reports: Chicken Pox - Past Surgical History Neurological Surgical History: Reports: Other (See Below) Musculoskeletal Surgical History: Reports: None, Other (See Below) Social & Family History - Family History Family Medical History: Noncontributory Psychiatric: Reports: Anxiety, Bipolar, Depression - Tobacco Use Smoking Status *Q: Current Status Unknown Years of Tobacco use: 21 Packs/Tins Daily: 2 Used Tobacco, but Quit: No Second Hand Smoke Exposure: Yes - Caffeine Use Caffeine Use: Reports: Coffee - Alcohol Use Days Per Week of Alcohol Use: 1 Number of Drinks Per Day: 9 Total Drinks Per Week: 9 - Recreational Drug Use Recreational Drug Use: Yes Drug Use in Last 12 Months: Yes Recreational Drug Type: Reports: Marijuana/Hashish - Living Situation & Occupation Living situation: Reports: Single ED ROS GENERAL - Review of Systems Review Of Systems: ROS reveals no pertinent complaints other than HPI. ED EXAM, GENERAL - Physical Exam Exam: See Below Exam Limited By: No Limitations General Appearance: Alert, WD/WN, Moderate Distress Eye Exam: Bilateral Eye: EOMI, PERRL Ears: Normal External Exam Nose: Normal Inspection Throat/Mouth: Normal Inspection, Normal Oropharynx, Normal Voice, No Airway Compromise Head: Atraumatic, Normocephalic Neck: Normal Inspection, Supple, Non-Tender Respiratory/Chest: No Respiratory Distress, Lungs Clear, Normal Breath Sounds, Chest Non-Tender Cardiovascular: Normal Peripheral Pulses, Regular Rate, Rhythm, No Edema Peripheral Pulses: 2+: Radial (L), Radial (R), Dorsalis Pedis (L), Dorsalis Pedis (R) GI/Abdominal: Normal Bowel Sounds Back Exam: Normal Inspection Extremities: Normal Inspection Neurological: Alert, Oriented, CN II-XII Intact, Normal Cognition, Normal Gait, Normal Reflexes, No Motor/Sensory Deficits Course - Vital Signs Last Recorded V/S: Last Vital Signs Temp 36.1 C 06/17/17 16:27 Pulse 99 06/17/17 16: Resp BP 155/87 H 06/17/17 16:27 Pulse Ox 99 06/17/17 15:04 - Orders/Labs/Meds Labs: Laboratory Tests 06/17/17 06/17/17 06/17/17 Range/Units 11:52 15:08 15:25 WBC 13.5 H (4.0-11.0) K/uL RBC 4.52 (3.80-5.80) M/uL Hgb 14.6 (11.5-16.5) g/dL Hct 44.0 (37.0-47.0) % MCV 97 H (76-96) fL MCH 32.3 H (27.0-32.0) pg MCHC 33.2 (31.0-35.0) g/dL RDW 13.5 (11.0-16.0) % Plt Count 306 D (150-500) K/uL MPV 10.6 H (6.0-10.0) fL Neut % (Auto) 76.5 H (45.0-70.0) % Lymph % (Auto) 15.7 L (20.0-40.0) % [place] % (Auto) 6.8 (3.0-10.0) % Eos % (Auto) 0.7 L (1.0-5.0) % Baso % (Auto) 0.3 (0.0-0.5) % Neut # (Auto) 10.30 H (2.00-7.50) K/uL Lymph # (Auto) 2.12 (1.50-4.00) K/uL [place] # (Auto) 0.91 H (0.20-0.80) K/uL Eos # (Auto) 0.10 (0.04-0.40) K/uL Baso # (Auto) 0.04 (0.02-0.10) K/uL Sodium (136-145) mmol/L Potassium (3.5-5.1) mmol/L Chloride (98-107) mmol/L Carbon Dioxide (21.0-32.0) mmol/L Anion Gap (5.0-15.0) mmol/L BUN (8-26) mg/dL Creatinine (0.55-1.02) mg/dL Est Cr Clr Drug Dosing Estimated GFR (MDRD) (>60) MLS/MIN BUN/Creatinine Ratio (6-25) Glucose (74-100) mg/dL Calcium (8.5-10.1) mg/dL Total Bilirubin (0.0-1.0) mg/dL AST (15-37) U/L ALT (12-78) U/L Alkaline Phosphatase (46-116) U/L Troponin I (0.000-0.060) ng/mL B-Natriuretic Peptide (0-125) pg/mL Total Protein (6.4-8.2) g/dL Albumin (3.4-5.0) g/dL Globulin (2.2-4.2) g/dL Albumin/Globulin Ratio (0.8-2.0) TSH, Ultra Sensitive (0.358-3.740) uIU/mL Urine Color Yellow Urine Appearance Clear (CLEAR) Urine pH 5.5 (5.0-8.0) Ur Specific [place] 1.025 (1.003-1.030) Urine Protein 30 H (NEGATIVE) mg/dL Urine Glucose (UA) Negative (NEGATIVE) mg/dL Urine Ketones Negative (NEGATIVE) mg/dL Urine Occult Blood Small H (NEGATIVE) Urine Nitrite Negative (NEGATIVE) Urine Bilirubin Small H (NEGATIVE) Urine Urobilinogen 0.2 (0.2-1.0) E.U./dL Ur Leukocyte Esterase Negative (NEGATIVE) Urine RBC Not seen /HPF Urine WBC 10-20 H /HPF Ur Squamous Epith Cells Moderate /HPF Urine Bacteria Few /HPF Urine Opiates Screen (NEGATIVE) Ur Oxycodone Screen (NEGATIVE) Urine Methadone Screen (NEGATIVE) U Acetaminophen Screen (NEGATIVE) Ur Barbiturates Screen (NEGATIVE) Ur Tricyclics Screen (NEGATIVE) Ur Phencyclidine Scrn (NEGATIVE) Ur Amphetamine Screen (NEGATIVE) U Methamphetamines Scrn (NEGATIVE) U Benzodiazepines Scrn (NEGATIVE) U Cocaine Metab Screen (NEGATIVE) U Marijuana (THC) Screen (NEGATIVE) Rheumatoid Factor (<20) IU/mL BRENDA Screen Negative (NEG) Lyme Disease Screen (NEG) 06/17/17 06/17/17 06/17/17 Range/Units 15:25 15:25 15:25 WBC (4.0-11.0) K/uL RBC (3.80-5.80) M/uL Hgb (11.5-16.5) g/dL Hct (37.0-47.0) % MCV (76-96) fL MCH (27.0-32.0) pg MCHC (31.0-35.0) g/dL RDW (11.0-16.0) % Plt Count (150-500) K/uL MPV (6.0-10.0) fL Neut % (Auto) (45.0-70.0) % Lymph % (Auto) (20.0-40.0) % [place] % (Auto) (3.0-10.0) % Eos % (Auto) (1.0-5.0) % Baso % (Auto) (0.0-0.5) % Neut # (Auto) (2.00-7.50) K/uL Lymph # (Auto) (1.50-4.00) K/uL [place] # (Auto) (0.20-0.80) K/uL Eos # (Auto) (0.04-0.40) K/uL Baso # (Auto) (0.02-0.10) K/uL Sodium 141 (136-145) mmol/L Potassium 3.5 (3.5-5.1) mmol/L Chloride 104 (98-107) mmol/L Carbon Dioxide 26.2 (21.0-32.0) mmol/L Anion Gap 14.3 (5.0-15.0) mmol/L BUN 5 L D (8-26) mg/dL Creatinine 0.77 (0.55-1.02) mg/dL Est Cr Clr Drug Dosing TNP Estimated GFR (MDRD) > 60 (>60) MLS/MIN BUN/Creatinine Ratio 6.5 (6-25) Glucose 118 H (74-100) mg/dL Calcium 9.5 (8.5-10.1) mg/dL Total Bilirubin 0.4 D (0.0-1.0) mg/dL AST 48 H (15-37) U/L ALT 51 (12-78) U/L Alkaline Phosphatase 110 (46-116) U/L Troponin I < 0.017 (0.000-0.060) ng/mL B-Natriuretic Peptide 406 H D (0-125) pg/mL Total Protein 7.7 (6.4-8.2) g/dL Albumin 3.1 L (3.4-5.0) g/dL Globulin 4.6 H (2.2-4.2) g/dL Albumin/Globulin Ratio 0.7 L (0.8-2.0) TSH, Ultra Sensitive 1.552 D (0.358-3.740) uIU/mL Urine Color Urine Appearance (CLEAR) Urine pH (5.0-8.0) Ur Specific [place] (1.003-1.030) Urine Protein (NEGATIVE) mg/dL Urine Glucose (UA) (NEGATIVE) mg/dL Urine Ketones (NEGATIVE) mg/dL Urine Occult Blood (NEGATIVE) Urine Nitrite (NEGATIVE) Urine Bilirubin (NEGATIVE) Urine Urobilinogen (0.2-1.0) E.U./dL Ur Leukocyte Esterase (NEGATIVE) Urine RBC /HPF Urine WBC /HPF Ur Squamous Epith Cells /HPF Urine Bacteria /HPF Urine Opiates Screen (NEGATIVE) Ur Oxycodone Screen (NEGATIVE) Urine Methadone Screen (NEGATIVE) U Acetaminophen Screen (NEGATIVE) Ur Barbiturates Screen (NEGATIVE) Ur Tricyclics Screen (NEGATIVE) Ur Phencyclidine Scrn (NEGATIVE) Ur Amphetamine Screen (NEGATIVE) U Methamphetamines Scrn (NEGATIVE) U Benzodiazepines Scrn (NEGATIVE) U Cocaine Metab Screen (NEGATIVE) U Marijuana (THC) Screen (NEGATIVE) Rheumatoid Factor <20 (<20) IU/mL BRENDA Screen (NEG) Lyme Disease Screen Negative (NEG) 06/17/17 Range/Units 16:00 WBC (4.0-11.0) K/uL RBC (3.80-5.80) M/uL Hgb (11.5-16.5) g/dL Hct (37.0-47.0) % MCV (76-96) fL MCH (27.0-32.0) pg MCHC (31.0-35.0) g/dL RDW (11.0-16.0) % Plt Count (150-500) K/uL MPV (6.0-10.0) fL Neut % (Auto) (45.0-70.0) % Lymph % (Auto) (20.0-40.0) % [place] % (Auto) (3.0-10.0) % Eos % (Auto) (1.0-5.0) % Baso % (Auto) (0.0-0.5) % Neut # (Auto) (2.00-7.50) K/uL Lymph # (Auto) (1.50-4.00) K/uL [place] # (Auto) (0.20-0.80) K/uL Eos # (Auto) (0.04-0.40) K/uL Baso # (Auto) (0.02-0.10) K/uL Sodium (136-145) mmol/L Potassium (3.5-5.1) mmol/L Chloride (98-107) mmol/L Carbon Dioxide (21.0-32.0) mmol/L Anion Gap (5.0-15.0) mmol/L BUN (8-26) mg/dL Creatinine (0.55-1.02) mg/dL Est Cr Clr Drug Dosing Estimated GFR (MDRD) (>60) MLS/MIN BUN/Creatinine Ratio (6-25) Glucose (74-100) mg/dL Calcium (8.5-10.1) mg/dL Total Bilirubin (0.0-1.0) mg/dL AST (15-37) U/L ALT (12-78) U/L Alkaline Phosphatase (46-116) U/L Troponin I (0.000-0.060) ng/mL B-Natriuretic Peptide (0-125) pg/mL Total Protein (6.4-8.2) g/dL Albumin (3.4-5.0) g/dL Globulin (2.2-4.2) g/dL Albumin/Globulin Ratio (0.8-2.0) TSH, Ultra Sensitive (0.358-3.740) uIU/mL Urine Color Urine Appearance (CLEAR) Urine pH (5.0-8.0) Ur Specific [place] (1.003-1.030) Urine Protein (NEGATIVE) mg/dL Urine Glucose (UA) (NEGATIVE) mg/dL Urine Ketones (NEGATIVE) mg/dL Urine Occult Blood (NEGATIVE) Urine Nitrite (NEGATIVE) Urine Bilirubin (NEGATIVE) Urine Urobilinogen (0.2-1.0) E.U./dL Ur Leukocyte Esterase (NEGATIVE) Urine RBC /HPF Urine WBC /HPF Ur Squamous Epith Cells /HPF Urine Bacteria /HPF Urine Opiates Screen Negative (NEGATIVE) Ur Oxycodone Screen Negative (NEGATIVE) Urine Methadone Screen Negative (NEGATIVE) U Acetaminophen Screen Negative (NEGATIVE) Ur Barbiturates Screen Negative (NEGATIVE) Ur Tricyclics Screen Positive H (NEGATIVE) Ur Phencyclidine Scrn Negative (NEGATIVE) Ur Amphetamine Screen Negative (NEGATIVE) U Methamphetamines Scrn Negative (NEGATIVE) U Benzodiazepines Scrn Negative (NEGATIVE) U Cocaine Metab Screen Negative (NEGATIVE) U Marijuana (THC) Screen Positive H (NEGATIVE) Rheumatoid Factor (<20) IU/mL BRENDA Screen (NEG) Lyme Disease Screen (NEG) Meds: Medications Discontinued Medications Generic Name Dose Route Start Last Admin Trade Name Cate PRN Reason Stop Dose Admin Promethazine HCl Confirm 06/17/17 15:52 Phenergan Administered 06/17/17 15:53 Dose 25 mg .ROUTE .STK-MED ONE Promethazine HCl 25 mg 06/17/17 15:15 06/17/17 16:34 Phenergan IM 06/17/17 15:16 25 mg ONETIME ONE Administration Departure - Departure Time of Disposition: 17:00 Disposition: Home, Self-Care 01 Condition: Good Clinical Impression: Generalized abdominal pain, Nausea - Discharge Information Instructions: Anal Fissure, Adult, [id number], Clear Liquid Diet, How to Take a Sitz Bath, Acetaminophen rectal suppositories Referrals: Jayden Smith MD [Primary Care Provider] - Forms: ED Department Discharge Additional Instructions: Follow up in the clinic as needed. If you have any further questions or concerns call [phone] or the hospital [phone]. Take the phenergan every 6 hours for nausea, after a couple of days you can start to take the phenergan as needed. - Problem List Review Problem List Initiated/Reviewed/Updated: Yes - Assessment/Plan Plan: Patient counseled on close f/u and rtc or ER as needed. Reassured with CT abdomen results but discussed continued monitoring and f/u. Patient agrees with monitoring and f/u as directed.
== END 2017-06-17 17:23 | disposition home or self-care (01) ==
LOC: LB.ED 14:43
DX: R10.84 Generalized abdominal pain (principal); R11.2 Nausea with vomiting, unspecified; I10 Essential (primary) hypertension; K21.9 Gastro-esophageal reflux disease without esophagitis; F31.9 Bipolar disorder, unspecified; Z79.899 Other long term (current) drug therapy; Z88.0 Allergy status to penicillin; Z88.1 Allergy status to other antibiotic agents; Z91.048 Other nonmedicinal substance allergy status
CPT/HCPCS: 36415; 71250; 74176; 80053; 80307; 81001; 83880; 84443; 84484; 85025; 86038; 86431; 86618; 93005; 96372; 99284; 99285; J2550

== ENCOUNTER 2018-04-26 16:30 | Emergency (ER) | payer MEDICAID ==
[2018-04-26] MEDS ORDERED: Sodium Chloride 0.9% 1,000 ML IV ONE (16:53)
[2018-04-26] MEDS ORDERED: Ondansetron 4 MG Tab.DIS PO ONE (16:54)
[2018-04-26] MEDS ORDERED: Ondansetron 4 MG/2 ML SDV ONE (17:05)
--- NOTE | 2018-04-26 17:05 | EDM.PDOC ---
ED HPI GENERAL MEDICAL PROBLEM - General Chief Complaint: General Stated Complaint: DIZZY SPELLS Time Seen by Provider: 04/26/18 16:50 Source of Information: Reports: Patient History Limitations: Reports: No Limitations - History of Present Illness INITIAL COMMENTS - FREE TEXT/NARRATIVE: According to patient she claims for the past 3 days she has been having dizzy spells which come and goes. She claims she feels dizzy when she moves her head or with change of position. she feels spinning sensation and stop if she rests. Has had nausea but no vomiting. No fever or chills. No ear ache or ear discharge. No headache. No weakness in the extremities. No loss of consciousness. No chest pain or palpitations. Also she claims she has had some burning with urination for the same periods of time. no back pain. no increased frequency of urination. No back pain. No vaginal discharge or pelvic pain. - Related Data Allergies Allergy/AdvReac Type Severity Reaction Status Date / Time ampicillin Allergy Anaphylactic Verified 06/17/17 15:19 Shock Penicillins Allergy Yeast Verified 06/17/17 15:19 Infections plastic adhesive tape Allergy Blisters Uncoded 05/18/17 02:55 Home Meds: Home Meds Albuterol [Proair HFA] 1 - 2 puff INH Q6HR PRN 03/08/16 [History] Desvenlafaxine [Pristiq] 100 mg PO DAILY 03/08/16 [History] Gabapentin 900 mg PO TID 03/08/16 [History] Pantoprazole Sodium [Protonix] 40 mg PO ACBREAKFAST 03/08/16 [History] SUMAtriptan Succinate [Sumatriptan Succinate] 1 tab PO Q2HR PRN 03/08/16 [ History] Triamcinolone Acetonide [Nasacort AQ [place]] 1 spray VIOLA ASDIRECTED 03/08/16 [ History] lamoTRIgine [Lamotrigine] 100 mg PO DAILY 03/08/16 [History] traZODone HCl [Trazodone HCl] 100 mg PO QPM PRN 03/08/16 [History] Cetirizine [ZyrTEC] 10 mg PO DAILY PRN 12/09/16 [History] Cyclobenzaprine [Flexeril] 10 mg PO BEDTIME #25 tab 12/09/16 [Rx] Meloxicam 15 mg PO BID 12/09/16 [History] Methocarbamol 500 mg PO TID PRN 12/09/16 [History] Propranolol HCl [Inderal LA] 60 mg PO DAILY 03/19/17 [History] Hydrocodone/Acetaminophen [Hydrocodon-Acetaminophen 5-325] 1 tab PO Q6HRRT PRN 04/30/17 [History] oxyCODONE HCl/Acetaminophen [oxyCODONE-Acetaminophen 5-325] 1 tab PO Q4H PRN [History] Past Medical History HEENT History: Reports: Impaired Vision Other HEENT History: "Deviated septum showed on CT " Cardiovascular History: Reports: Hypertension Other Cardiovascular History: Took steroid for heart inflammation and fluid Respiratory History: Reports: Bronchitis, Recurrent, SOB Gastrointestinal History: Reports: Chronic Constipation, Chronic Diarrhea, GERD Other Gastrointestinal History: chronic abdominal pain [id number] History: Reports: Ectopic , Musculoskeletal History: Reports: Back Pain, Chronic, Fracture, Other (See Below ) Other Musculoskeletal History: Tendonitis Neurological History: Reports: Concussion, Migraines Psychiatric History: Reports: Anxiety, Bipolar, Depression, Mood Swings Hematologic History: Reports: Anemia Immunologic History: Reports: Other (See Below) Other Immunologic History: . - Infectious Disease History Infectious Disease History: Reports: Chicken Pox - Past Surgical History Neurological Surgical History: Reports: Other (See Below) Musculoskeletal Surgical History: Reports: None, Other (See Below) Social & Family History - Family History Family Medical History: Noncontributory Psychiatric: Reports: Anxiety, Bipolar, Depression - Caffeine Use Caffeine Use: Reports: Coffee - Living Situation & Occupation Living situation: Reports: Single ED ROS GENERAL - Review of Systems Review Of Systems: See Below Constitutional: Denies: Fever, Chills HEENT: Denies: Ear Discharge, Ear Pain, Rhinitis, Throat Pain, Throat Swelling Respiratory: Denies: Cough, Sputum Cardiovascular: Denies: Chest Pain, Lightheadedness GI/Abdominal: Denies: Abdominal Pain, Constipation, Diarrhea, Nausea, Vomiting : Denies: Dysuria, Frequency Musculoskeletal: Denies: Joint Pain, Joint Swelling Skin: Denies: Bruising, Pruritis, Rash, Erythema Neurological: Reports: Dizziness. Denies: Confusion, Headache, Numbness, Paresthesia, Tingling, Tremors, Weakness, Gait Disturbance Psychiatric: Reports: Anxiety ED EXAM, GENERAL - Physical Exam Exam: See Below Exam Limited By: No Limitations General Appearance: Alert, WD/WN, No Apparent Distress Eye Exam: Bilateral Eye: EOMI, PERRL Ears: Normal External Exam, Normal Canal, Hearing Grossly Normal, Normal TMs Ear Exam: Bilateral Ear: Auricle Normal, Canal Normal, TM normal Nose: Normal Inspection, Normal Mucosa, No Blood Throat/Mouth: Normal Inspection, Normal Lips, Normal Teeth, Normal Gums, Normal Oropharynx, Normal Voice, No Airway Compromise Head: Atraumatic, Normocephalic Neck: Normal Inspection, Supple, Non-Tender, Full Range of Motion Respiratory/Chest: No Respiratory Distress, Lungs Clear, Normal Breath Sounds, No Accessory Muscle Use, Chest Non-Tender Cardiovascular: Normal Peripheral Pulses, Regular Rate, Rhythm, No Edema, No Gallop, No JVD, No Murmur, No Rub GI/Abdominal: Normal Bowel Sounds, Soft, Non-Tender, No Organomegaly, No Distention, No Abnormal Bruit, No Mass Extremities: Normal Inspection, Normal Range of Motion, Non-Tender, Normal Capillary Refill, No Pedal Edema Neurological: Alert, Oriented, CN II-XII Intact, Normal Cognition, Normal Gait, Normal Reflexes, No Motor/Sensory Deficits, Other (pt does have elicitable dizziness with movement of head.) Psychiatric: Normal Affect, Anxious Skin Exam: Warm, Intact Course - Vital Signs Text/Narrative:: Pt's clinical exam is normal other then he short episodes of vertigo with movement of the head. Her ortho-static blood pressures are normal. She was started on IV NS bolus initially. She did receive meclizine 25mg orally and Iv zofran 4mgHer CBC and CMP are normal. Her UA appears normal. Pt reassured that she has labrynthitis. education given. Advised to avoid driving and suddenly turning the head as it can trigger vertigo. Drink plenty of fluids. Meclizine 25mg 3 times daily for next 5 days. followup in clinic for recheck next wk. - Orders/Labs/Meds Orders: Active Orders 24 hr Category Date Time Status UA W/MICROSCOPIC [URIN] Stat Lab 04/26/18 17:07 Received Labs: Laboratory Tests 04/26/18 04/26/18 04/26/18 Range/Units 17:07 17:07 17:07 WBC 10.4 (4.0-11.0) K/uL RBC 4.56 (3.80-5.80) M/uL Hgb 14.0 (11.5-16.5) g/dL Hct 42.6 (37.0-47.0) % MCV 93 (76-96) fL MCH 30.7 (27.0-32.0) pg MCHC 32.9 (31.0-35.0) g/dL RDW 13.9 (11.0-16.0) % Plt Count 236 (150-500) K/uL MPV 11.0 H (6.0-10.0) fL Neut % (Auto) 54.1 (45.0-70.0) % Lymph % (Auto) 34.9 (20.0-40.0) % [place] % (Auto) 9.5 (3.0-10.0) % Eos % (Auto) 1.1 (1.0-5.0) % Baso % (Auto) 0.4 (0.0-0.5) % Neut # (Auto) 5.65 (2.00-7.50) K/uL Lymph # (Auto) 3.64 (1.50-4.00) K/uL [place] # (Auto) 0.99 H (0.20-0.80) K/uL Eos # (Auto) 0.12 (0.04-0.40) K/uL Baso # (Auto) 0.04 (0.02-0.10) K/uL Sodium 141 (136-145) mmol/L Potassium 3.4 L (3.5-5.1) mmol/L Chloride 105 (98-107) mmol/L Carbon Dioxide 26.3 (21.0-32.0) mmol/L Anion Gap 13.1 (5.0-15.0) mmol/L BUN 11 D (8-26) mg/dL Creatinine 0.80 D (0.55-1.02) mg/dL Est Cr Clr Drug Dosing TNP Estimated GFR (MDRD) > 60 (>60) MLS/MIN BUN/Creatinine Ratio 13.8 (6-25) Glucose 109 H (74-100) mg/dL Calcium 8.4 L (8.5-10.1) mg/dL Total Bilirubin 0.1 D (0.0-1.0) mg/dL AST 24 (15-37) U/L ALT 48 (12-78) U/L Alkaline Phosphatase 103 (46-116) U/L Total Protein 7.2 (6.4-8.2) g/dL Albumin 3.1 L (3.4-5.0) g/dL Globulin 4.1 (2.2-4.2) g/dL Albumin/Globulin Ratio 0.8 (0.8-2.0) Urine Color Yellow Urine Appearance Clear (CLEAR) Urine pH 5.5 (5.0-8.0) Ur Specific [place] 1.015 (1.003-1.030) Urine Protein Negative (NEGATIVE) mg/dL Urine Glucose (UA) Negative (NEGATIVE) mg/dL Urine Ketones Negative (NEGATIVE) mg/dL Urine Occult Blood Trace-intact H (NEGATIVE) Urine Nitrite Negative (NEGATIVE) Urine Bilirubin Negative (NEGATIVE) Urine Urobilinogen 0.2 (0.2-1.0) E.U./dL Ur Leukocyte Esterase Negative (NEGATIVE) Urine RBC 0-5 H /HPF Urine WBC Not seen /HPF Ur Squamous Epith Cells Few /HPF Urine Bacteria Occasional /HPF Meds: Medications Discontinued Medications Generic Name Dose Route Start Last Admin Trade Name Freq PRN Reason Stop Dose Admin Sodium Chloride 1,000 mls @ 1,000 mls/hr 04/26/18 16:53 04/26/18 17:06 Normal Saline IV 04/26/18 17:52 1,000 mls/hr .BOLUS ONE Administration Meclizine HCl Confirm 04/26/18 17:15 04/26/18 17:27 Antivert Administered 04/26/18 17:16 Not Given Dose 25 mg .ROUTE .STK-MED ONE Meclizine HCl 25 mg 04/26/18 17:19 04/26/18 17:11 Antivert PO 04/26/18 17:20 25 mg STAT STA Administration Meclizine HCl Confirm 04/26/18 17:37 04/26/18 17:37 Antivert Administered 04/26/18 17:38 Not Given Dose 25 mg .ROUTE .STK-MED ONE Ondansetron HCl 4 mg 04/26/18 16:54 04/26/18 17:08 Zofran Odt PO 04/26/18 16:55 4 mg ONETIME ONE Administration Ondansetron HCl Confirm 04/26/18 17:05 04/26/18 17:27 Zofran Administered 04/26/18 17:06 Not Given Dose 4 mg .ROUTE .STK-MED ONE Departure - Departure Time of Disposition: 17:30 Disposition: Home, Self-Care 01 Condition: Good Clinical Impression: Acute viral labyrinthitis - Discharge Information Instructions: Vertigo, [id number], Labyrinthitis, [id number] Referrals: PCP,None [Primary Care Provider] - Forms: ED Department Discharge Additional Instructions: Take Meclizine 25 mg tablet given in ER to take home, tonight before going to bed. Do not drive until Meclizine perscription completed. No fast or jerky movements. Fill RX tomorrow and take Meclizine 25mg 3 times a day for 5 days as ordered. - Problem List & Annotations (1) Acute viral labyrinthitis SNOMED Code(s): 705649537 Code(s): H83.09 - LABYRINTHITIS, UNSPECIFIED EAR Status: Acute - Problem List Review Problem List Initiated/Reviewed/Updated: Yes - Assessment/Plan Assessment:: Acute viral labrynthitis Plan: Pt's clinical exam is normal other then he short episodes of vertigo with movement of the head. Her ortho-static blood pressures are normal. She was started on IV NS bolus initially. She did receive meclizine 25mg orally and Iv zofran 4mgHer CBC and CMP are normal. Her UA appears normal. Pt reassured that she has labrynthitis. education given. Advised to avoid driving and suddenly turning the head as it can trigger vertigo. Drink plenty of fluids. Meclizine 25mg 3 times daily for next 5 days. followup in clinic for recheck next wk.
== END 2018-04-26 17:48 | disposition home or self-care (01) ==
LOC: LB.ED 16:30
DX: H83.09 Labyrinthitis, unspecified ear (principal); I10 Essential (primary) hypertension; Z88.1 Allergy status to other antibiotic agents; Z88.0 Allergy status to penicillin; Z79.899 Other long term (current) drug therapy
CPT/HCPCS: 36415; 80053; 81001; 85025; 96360; 99282; 99284-25; A9270-GY; J7030

== ENCOUNTER → 2018-05-18 | Emergency (ER) | payer MEDICAID ==
[~2018-05-18] MED LIST: Ketorolac 30 MG/ML SDV ONE; Ketorolac 60 MG/2 ML SDV IM ONE
[2018-05-18 13:41] VITALS: BP 136/68
--- NOTE | 2018-05-18 17:22 | CR ---
DATE OF SERVICE: 05/18/18 CLINICAL DATA: rolled foot RIGHT FOOT: Normal. [id number] MTDD
--- NOTE | 2018-05-20 19:07 | EDM.PDOC ---
ED HPI GENERAL MEDICAL PROBLEM - General Chief Complaint: Lower Extremity Injury/Pain Stated Complaint: Right foot pain Time Seen by Provider: 05/20/18 13:40 Source of Information: Reports: Patient ( ) History Limitations: Reports: No Limitations - History of Present Illness INITIAL COMMENTS - FREE TEXT/NARRATIVE: This is a 37yo F here for right foot pain. Patient states she stepped of a step and landed with her right foot twisted in and now the lateral part of the right foot hurts proximal to the 5the metatarsal joint. She denies any other concerns. Onset: Sudden Duration: Minutes: Location: Reports: Lower Extremity, Right Right Feet Pain Score (Numeric/FACES): 10 - Related Data Allergies Allergy/AdvReac Type Severity Reaction Status Date / Time ampicillin Allergy Anaphylactic Verified 05/18/18 13:26 Shock Penicillins Allergy Yeast Verified 05/18/18 13:26 Infections plastic adhesive tape Allergy Blisters Uncoded 05/18/18 13:26 Home Meds: Home Meds Albuterol [Proair HFA] 1 - 2 puff INH Q6HR PRN 03/08/16 [History] Desvenlafaxine [Pristiq] 100 mg PO DAILY 03/08/16 [History] Gabapentin 900 mg PO TID 03/08/16 [History] Pantoprazole Sodium [Protonix] 40 mg PO ACBREAKFAST 03/08/16 [History] SUMAtriptan Succinate [Sumatriptan Succinate] 1 tab PO Q2HR PRN 03/08/16 [ History] Triamcinolone Acetonide [Nasacort AQ [place]] 1 spray VIOLA ASDIRECTED 03/08/16 [ History] lamoTRIgine [Lamotrigine] 100 mg PO DAILY 03/08/16 [History] traZODone HCl [Trazodone HCl] 100 mg PO QPM PRN 03/08/16 [History] Cetirizine [ZyrTEC] 10 mg PO DAILY PRN 12/09/16 [History] Cyclobenzaprine [Flexeril] 10 mg PO BEDTIME #25 tab 12/09/16 [Rx] Propranolol HCl [Inderal LA] 60 mg PO DAILY 03/19/17 [History] Amoxicillin/Clavulanate K [Augmentin 875-125 MG] 1 tab PO BID 05/18/18 [History] Ondansetron HCl [Zofran] 4 mg PO ASDIRECTED PRN 05/18/18 [History] Past Medical History HEENT History: Reports: Impaired Vision Other HEENT History: "Deviated septum showed on CT " Cardiovascular History: Reports: Hypertension Other Cardiovascular History: Took steroid for heart inflammation and fluid Respiratory History: Reports: Bronchitis, Recurrent, SOB Gastrointestinal History: Reports: Chronic Constipation, Chronic Diarrhea, GERD Other Gastrointestinal History: chronic abdominal pain [employer] History: Reports: Ectopic , , Other (See Below) Other [employer] History: two etopic pregnancies Musculoskeletal History: Reports: Back Pain, Chronic, Fracture, Other (See Below ) Other Musculoskeletal History: Tendonitis Neurological History: Reports: Concussion, Headaches, Chronic, Migraines Psychiatric History: Reports: Anxiety, Bipolar, Depression, Mood Swings, Panic Attack Hematologic History: Reports: Anemia Immunologic History: Reports: Other (See Below) Other Immunologic History: pt states she was told she has a weak immune system, but doesnt know why Oncologic (Cancer) History: Reports: Breast Dermatologic History: Reports: Other (See Below) Other Dermatologic History: boils - unknown etiology - Infectious Disease History Infectious Disease History: Reports: Chicken Pox - Past Surgical History Neurological Surgical History: Reports: Other (See Below) Other Neurological Surgeries/Procedures: nerve release in back. some nerve damage. Musculoskeletal Surgical History: Reports: None, Other (See Below) Other Musculoskeletal Surgeries/Procedures:: numerous back surgeries, last one 08/08 Oncologic Surgical History: Reports: Lumpectomy Other Oncologic Surgeries/Procedures: right breast lumpectomy -benign Social & Family History - Family History Family Medical History: Noncontributory Psychiatric: Reports: Anxiety, Bipolar, Depression - Caffeine Use Caffeine Use: Reports: Coffee - Living Situation & Occupation Living situation: Reports: Single Review of Systems - Review of Systems Review Of Systems: ROS reveals no pertinent complaints other than HPI. ED EXAM, GENERAL - Physical Exam Exam: See Below Exam Limited By: No Limitations General Appearance: Alert, WD/WN, Mild Distress Nose: Normal Inspection Throat/Mouth: Normal Inspection Head: Atraumatic, Normocephalic Neck: Normal Inspection Respiratory/Chest: No Respiratory Distress Cardiovascular: Normal Peripheral Pulses Extremities: Other (right foot pain on palpation of lateral 5th metatarsal proximally) Course - Vital Signs Last Recorded V/S: Last Vital Signs Temp 36.7 C 05/18/18 13:39 Pulse 95 05/18/18 13:39 Resp BP 136/68 05/18/18 13:39 Pulse Ox 98 05/18/18 13:39 - Orders/Labs/Meds Meds: Medications Discontinued Medications Generic Name Dose Route Start Last Admin Trade Name Cate PRN Reason Stop Dose Admin Ketorolac Tromethamine 30 mg 05/18/18 13:22 05/18/18 13:35 Toradol IM 05/18/18 13:23 30 mg ONETIME ONE Administration Ketorolac Tromethamine Confirm 05/18/18 13:29 05/18/18 13:34 Toradol Administered 05/18/18 13:30 Not Given Dose 30 mg .ROUTE .STK-MED ONE Departure - Departure Time of Disposition: 14:30 Disposition: Home, Self-Care 01 Condition: Good Clinical Impression: Foot injury Qualifiers: Encounter type: initial encounter Laterality: right Qualified Code(s): S99.921A - Unspecified injury of right foot, initial encounter - Discharge Information Instructions: RICE for Routine Care of Injuries, [id number], Ibuprofen tablets and capsules Referrals: PCP,None [Primary Care Provider] - Forms: ED Department Discharge Additional Instructions: please remember that it can take up to two weeks for your injury to heal. in the meantime, use the ibuprofen for pain no more than 3 times a day. remember RICE- Rest, Ice, Compression, Elevation. take it easy, wrap your foot with the TALAT Bandage, and apply ice for swelling. Elevating the foot will also help with selling. return to the clinic if the pain does not improve or gets worse.
== END | disposition home or self-care (01) ==
LOC: LB.ED 13:01
DX: S99.921A Unspecified injury of right foot, initial encounter (principal); I10 Essential (primary) hypertension; Z88.1 Allergy status to other antibiotic agents; Z88.0 Allergy status to penicillin; Z79.899 Other long term (current) drug therapy; X50.9XXA Other and unspecified overexertion or strenuous movements or postures, initial encounter
CPT/HCPCS: 73620-RT; 96372; 99283-25; J1885

== ENCOUNTER 2018-07-15 01:00 | Emergency (ER) | payer MEDICAID ==
--- NOTE | 2018-07-15 03:12 | EDM.PDOC ---
ED HPI GENERAL MEDICAL PROBLEM - General Stated Complaint: UNRESPONSIVE Time Seen by Provider: 07/15/18 02:55 Source of Information: Reports: EMS History Limitations: Reports: Other (unresponsive) - History of Present Illness INITIAL COMMENTS - FREE TEXT/NARRATIVE: This is a 37yo F brought in by her boyfriend due to patient being unresponsive. Per history from the significant other she was drinking only. Nurses brought in patient from the front door to the ER. Onset: Unknown/Unsure Duration: Constant Location: Reports: Generalized Quality: Reports: Same as Previous Episode Severity: Severe Improves with: Reports: None Worsens with: Reports: None - Related Data Allergies Allergy/AdvReac Type Severity Reaction Status Date / Time ampicillin Allergy Anaphylactic Verified 05/18/18 13:26 Shock Penicillins Allergy Yeast Verified 05/18/18 13:26 Infections plastic adhesive tape Allergy Blisters Uncoded 05/18/18 13:26 Home Meds: Home Meds Albuterol [Proair HFA] 1 - 2 puff INH Q6HR PRN 03/08/16 [History] Desvenlafaxine [Pristiq] 100 mg PO DAILY 03/08/16 [History] Gabapentin 900 mg PO TID 03/08/16 [History] Pantoprazole Sodium [Protonix] 40 mg PO ACBREAKFAST 03/08/16 [History] SUMAtriptan succinate [Sumatriptan Succinate] 1 tab PO Q2HR PRN 03/08/16 [ History] Triamcinolone Acetonide [Nasacort AQ [place]] 1 spray VIOLA ASDIRECTED 03/08/16 [ History] lamoTRIgine [Lamotrigine] 100 mg PO DAILY 03/08/16 [History] traZODone HCl [Trazodone HCl] 100 mg PO QPM PRN 03/08/16 [History] Cetirizine [ZyrTEC] 10 mg PO DAILY PRN 12/09/16 [History] Cyclobenzaprine [Flexeril] 10 mg PO BEDTIME #25 tab 12/09/16 [Rx] Propranolol HCl [Inderal LA] 60 mg PO DAILY 03/19/17 [History] Amoxicillin/Clavulanate K [Augmentin 875-125 MG] 1 tab PO BID 05/18/18 [History] Ondansetron HCl [Zofran] 4 mg PO ASDIRECTED PRN 05/18/18 [History] Past Medical History HEENT History: Reports: Impaired Vision Other HEENT History: "Deviated septum showed on CT " Cardiovascular History: Reports: Hypertension Other Cardiovascular History: Took steroid for heart inflammation and fluid Respiratory History: Reports: Bronchitis, Recurrent, SOB Gastrointestinal History: Reports: Chronic Constipation, Chronic Diarrhea, GERD Other Gastrointestinal History: chronic abdominal pain HEALTH INFORMATION ASSISTANT History: Reports: Ectopic , , Other (See Below) Other HEALTH INFORMATION ASSISTANT History: two etopic pregnancies Musculoskeletal History: Reports: Back Pain, Chronic, Fracture, Other (See Below ) Other Musculoskeletal History: Tendonitis Neurological History: Reports: Concussion, Headaches, Chronic, Migraines Psychiatric History: Reports: Anxiety, Bipolar, Depression, Mood Swings, Panic Attack Hematologic History: Reports: Anemia Immunologic History: Reports: Other (See Below) Other Immunologic History: pt states she was told she has a weak immune system, but doesnt know why Oncologic (Cancer) History: Reports: Breast Dermatologic History: Reports: Other (See Below) Other Dermatologic History: boils - unknown etiology - Infectious Disease History Infectious Disease History: Reports: Chicken Pox - Past Surgical History Neurological Surgical History: Reports: Other (See Below) Other Neurological Surgeries/Procedures: nerve release in back. some nerve damage. Musculoskeletal Surgical History: Reports: None, Other (See Below) Other Musculoskeletal Surgeries/Procedures:: numerous back surgeries, last one 08/08 Oncologic Surgical History: Reports: Lumpectomy Other Oncologic Surgeries/Procedures: right breast lumpectomy -benign Social & Family History - Family History Family Medical History: Noncontributory Psychiatric: Reports: Anxiety, Bipolar, Depression - Caffeine Use Caffeine Use: Reports: Coffee - Living Situation & Occupation Living situation: Reports: Single ED ROS GENERAL - Review of Systems Review Of Systems: Unable To Obtain ED EXAM, GENERAL - Physical Exam Exam: See Below Exam Limited By: Other (unresponsive) General Appearance: Obtunded Eye Exam: Bilateral Eye: Other (sluggish pupils) Throat/Mouth: No Airway Compromise, Other (dentures taken out upper and bottom) Head: Atraumatic, Normocephalic Neck: Normal Inspection Respiratory/Chest: Decreased Breath Sounds, Crackles, Rales Cardiovascular: Normal Peripheral Pulses, Regular Rate, Rhythm Back Exam: Normal Inspection Extremities: Normal Inspection Neurological: Unresponsive ED GENERAL MEDICAL PROCEDURES - Endotracheal Intubation ET Intubation Indication: Airway Protection Preparation: Suction, Balloon Tested, Other (glidoscope prepared) Airway Assessment: Obese, Large Tongue Pre-Oxygenation: Assisted with BVM Anesthesia Meds: Midazolam, Succinylcholine Placement: Orotracheal, Cuffed, Uncomplicated Placement Cords Visualized: Yes ETT Size In mm: 7 Number of Attempts: 1 Confirmed By: CO2 Indicator, Bilateral Breath Sounds Tube Secured By: By RN Course - Orders/Labs/Meds Orders: Active Orders 24 hr Category Date Time Status Chest 1V Frontal [CR] Stat Exams 07/15/18 03:04 Ordered Chest 1V Frontal [CR] Stat Exams 07/15/18 03:06 Ordered Chest 1V Frontal [CR] Stat Exams 07/15/18 03:06 Ordered ABG [BLOOD GAS ARTERIAL] [BG] Stat Lab 07/15/18 03:14 Ordered BLOOD GAS ARTERIAL [BG] Stat Lab 07/15/18 03:00 Received CBC WITH AUTO DIFF [HEME] Stat Lab 07/15/18 03:04 Ordered COMPREHENSIVE METABOLIC PN,CMP [CHEM] Stat Lab 07/15/18 03:04 Ordered DRUG SCREEN, URINE [URCHEM] Stat Lab 07/15/18 03:05 Ordered TSH ULTRASENSITIVE [CHEM] Stat Lab 07/15/18 03:04 Ordered UA W/MICROSCOPIC [URIN] Stat Lab 07/15/18 03:04 Ordered - Re-Assessments/Exams Free Text/Narrative Re-Assessment/Exam: [facility] present and assisting in medication dosing record keeping and guidance. ET Tube adjusted as patient started to get agitated, cough and some secretions. Patient began movements and boluses of Fentanyl 50mcg and Propofol 20mg given at intervals. Propofol maintenance started at 50mcg/kg/min per. Patient still required bolus of propofol and fentanyl at intervals. Increased to 75mcg propofol and improved agitation but patient still continued to get agitated. Propofol increased to 100mcg. BP monitoring and pulse oxygenation stable. Accepting physician Dr. Matamoros was contacted by [facility]. Discussed patient on phone. Will try to locate a facility that the flight crew is able to fly. No places close that they are able to fly. [place] [facility] contact - but unable to find backup and refused. Our own crew able to obtain a nurse to go with and then called back to Dr. Matamoros for acceptance. Our ACLS rig to meet [place] rig part way. Maintenance propofol decreased to 75mcg due to low BP. Decreased further to 50mcg and BP stable. Departure - Departure Time of Disposition: 03:45 Disposition: DC/Tfer to Acute Hospital 02 Preliminary Cause of *Q: Respiratory Failure Condition: Serious Clinical Impression: Acute respiratory failure with hypoxia Acute alcoholic intoxication Qualifiers: Complication of substance-induced condition: with unspecified complication Qualified Code(s): F10.929 - Alcohol use, unspecified with intoxication, unspecified - Discharge Information Referrals: PCP,None [Primary Care Provider] - - Problem List & Annotations (1) Acute alcoholic intoxication SNOMED Code(s): 94380370 Code(s): F10.129 - ALCOHOL ABUSE WITH INTOXICATION, UNSPECIFIED Status: Acute Priority: High Current Visit: Yes Qualifiers: Complication of substance-induced condition: with unspecified complication Qualified Code(s): F10.929 - Alcohol use, unspecified with intoxication, unspecified (2) Acute respiratory failure with hypoxia SNOMED Code(s): 21363334, 936768373 Code(s): J96.01 - ACUTE RESPIRATORY FAILURE WITH HYPOXIA Status: Acute Priority: High Current Visit: Yes - Problem List Review Problem List Initiated/Reviewed/Updated: Yes - My Orders Last 24 Hours: My Active Orders 07/15/18 03:00 BLOOD GAS ARTERIAL [BG] Stat 07/15/18 03:04 Chest 1V Frontal [CR] Stat CBC WITH AUTO DIFF [HEME] Stat COMPREHENSIVE METABOLIC PN,CMP [CHEM] Stat TSH ULTRASENSITIVE [CHEM] Stat UA W/MICROSCOPIC [URIN] Stat 07/15/18 03:05 DRUG SCREEN, URINE [URCHEM] Stat 07/15/18 03:06 Chest 1V Frontal [CR] Stat Chest 1V Frontal [CR] Stat 07/15/18 03:14 ABG [BLOOD GAS ARTERIAL] [BG] Stat - Assessment/Plan Last 24 Hours: My Active Orders 07/15/18 03:00 BLOOD GAS ARTERIAL [BG] Stat 07/15/18 03:04 Chest 1V Frontal [CR] Stat CBC WITH AUTO DIFF [HEME] Stat COMPREHENSIVE METABOLIC PN,CMP [CHEM] Stat TSH ULTRASENSITIVE [CHEM] Stat UA W/MICROSCOPIC [URIN] Stat 07/15/18 03:05 DRUG SCREEN, URINE [URCHEM] Stat 07/15/18 03:06 Chest 1V Frontal [CR] Stat Chest 1V Frontal [CR] Stat 07/15/18 03:14 ABG [BLOOD GAS ARTERIAL] [BG] Stat Plan: Patient to be discharged to [facility] rig to [facility]. Accepting Dr. Matamoros to ICU bed.
[2018-07-15] MEDS ORDERED: Naloxone 2 MG/2 ML Syringe ONE ×3 (03:43)
[2018-07-15] MEDS ORDERED: fentaNYL 100 MCG/2 ML SDV ONE ×5 (03:43)
[2018-07-15] MEDS ORDERED: Flumazenil 0.1 MG/ML 5 ML MDV ONE (03:43)
[2018-07-15] MEDS ORDERED: Etomidate 2 MG/ML 10 ML SDV ONE (03:43)
[2018-07-15] MEDS ORDERED: Succinylcholine 200 MG/10 ML MDV ONE (03:43)
[2018-07-15] MEDS ORDERED: Propofol 1,000 MG/100 ML SDV ONE ×2 (03:43)
[2018-07-15] MEDS ORDERED: Propofol 200 MG/20 ML SDV ONE ×2 (03:43)
--- NOTE | 2018-07-15 17:20 | CR ---
DATE OF SERVICE: 07/15/18 CLINICAL DATA: non responsive AP PORTABLE CHEST: No priors. There is an endotracheal tube in place. Its distal tip is in the right main stem bronchus. The heart size is at the upper limits of normal. There is soft tissue fullness in the AP window on the left. There are mild atelectatic changes in the left lung. The right lung is clear. No pneumothorax. No pleural effusions. [id number] [facility]
== END 2018-07-15 03:20 ==
LOC: LB.ED 01:00
DX: J96.01 Acute respiratory failure with hypoxia (principal); F10.129 Alcohol abuse with intoxication, unspecified; I10 Essential (primary) hypertension; Z88.0 Allergy status to penicillin; Z88.1 Allergy status to other antibiotic agents; Z91.048 Other nonmedicinal substance allergy status; Z79.899 Other long term (current) drug therapy
CPT/HCPCS: 31500; 36415; 36600; 71045; 80053; 80307; 81001; 81025; 82803; 84443; 85025; 99285; 99285-25; A0425; G0480; J0330; J2310; J2704; J3010; J3490; J7030

== ENCOUNTER 2018-08-15 17:11 | Emergency (ER) | payer MEDICAID ==
[2018-08-15] MEDS ORDERED: Ibuprofen 400 MG Tab ONE (17:30)
[2018-08-15] MEDS ORDERED: Ondansetron 4 MG Tab.DIS ONE (17:30)
--- NOTE | 2018-08-17 15:18 | EDM.PDOC ---
ED HPI GENERAL MEDICAL PROBLEM - General Stated Complaint: HIT HEAD ON TABLE Time Seen by Provider: 08/16/18 17:30 Source of Information: Reports: Patient History Limitations: Reports: No Limitations - History of Present Illness INITIAL COMMENTS - FREE TEXT/NARRATIVE: This is a 37yo F who hit her head on the coffee table when she fell. She did not lose consciousness or have other injuries. She complains of headache and photophobia and trouble concentrating. Denies other issues. Onset: Sudden Location: Reports: Head Severity: Mild Improves with: Reports: None Worsens with: Reports: None Associated Symptoms: Reports: Confusion, Headaches - Related Data Allergies Allergy/AdvReac Type Severity Reaction Status Date / Time ampicillin Allergy Anaphylactic Verified 05/18/18 13:26 Shock Penicillins Allergy Yeast Verified 05/18/18 13:26 Infections plastic adhesive tape Allergy Blisters Uncoded 05/18/18 13:26 Home Meds: Home Meds Albuterol [Proair HFA] 1 - 2 puff INH Q6HR PRN 03/08/16 [History] Desvenlafaxine [Pristiq] 100 mg PO DAILY 03/08/16 [History] Gabapentin 900 mg PO TID 03/08/16 [History] Pantoprazole Sodium [Protonix] 40 mg PO ACBREAKFAST 03/08/16 [History] SUMAtriptan succinate [Sumatriptan Succinate] 1 tab PO Q2HR PRN 03/08/16 [ History] Triamcinolone Acetonide [Nasacort AQ [place]] 1 spray VIOLA ASDIRECTED 03/08/16 [ History] lamoTRIgine [Lamotrigine] 100 mg PO DAILY 03/08/16 [History] traZODone HCl [Trazodone HCl] 100 mg PO QPM PRN 03/08/16 [History] Cetirizine [ZyrTEC] 10 mg PO DAILY PRN 12/09/16 [History] Cyclobenzaprine [Flexeril] 10 mg PO BEDTIME #25 tab 12/09/16 [Rx] Propranolol HCl [Inderal LA] 60 mg PO DAILY 03/19/17 [History] Amoxicillin/Clavulanate K [Augmentin 875-125 MG] 1 tab PO BID 05/18/18 [History] Ondansetron HCl [Zofran] 4 mg PO ASDIRECTED PRN 05/18/18 [History] Past Medical History HEENT History: Reports: Impaired Vision Other HEENT History: "Deviated septum showed on CT " Cardiovascular History: Reports: Hypertension Other Cardiovascular History: Took steroid for heart inflammation and fluid Respiratory History: Reports: Bronchitis, Recurrent, SOB Gastrointestinal History: Reports: Chronic Constipation, Chronic Diarrhea, GERD Other Gastrointestinal History: chronic abdominal pain PRAWN TRAWLER HAND History: Reports: Ectopic , , Other (See Below) Other PRAWN TRAWLER HAND History: two etopic pregnancies Musculoskeletal History: Reports: Back Pain, Chronic, Fracture, Other (See Below ) Other Musculoskeletal History: Tendonitis Neurological History: Reports: Concussion, Headaches, Chronic, Migraines Psychiatric History: Reports: Anxiety, Bipolar, Depression, Mood Swings, Panic Attack Hematologic History: Reports: Anemia Immunologic History: Reports: Other (See Below) Other Immunologic History: pt states she was told she has a weak immune system, but doesnt know why Oncologic (Cancer) History: Reports: Breast Dermatologic History: Reports: Other (See Below) Other Dermatologic History: boils - unknown etiology - Infectious Disease History Infectious Disease History: Reports: Chicken Pox - Past Surgical History Neurological Surgical History: Reports: Other (See Below) Other Neurological Surgeries/Procedures: nerve release in back. some nerve damage. Musculoskeletal Surgical History: Reports: None, Other (See Below) Other Musculoskeletal Surgeries/Procedures:: numerous back surgeries, last one 08/08 Oncologic Surgical History: Reports: Lumpectomy Other Oncologic Surgeries/Procedures: right breast lumpectomy -benign Social & Family History - Family History Family Medical History: Noncontributory Psychiatric: Reports: Anxiety, Bipolar, Depression - Caffeine Use Caffeine Use: Reports: Coffee - Living Situation & Occupation Living situation: Reports: Single ED ROS GENERAL - Review of Systems Review Of Systems: ROS reveals no pertinent complaints other than HPI. - Physical Exam Exam: See Below Exam Limited By: No Limitations General Appearance: Alert, WD/WN, Mild Distress Eye Exam: Bilateral Eye: EOMI, PERRL Ears: Normal External Exam Nose: Normal Inspection Throat/Mouth: Normal Inspection Head Exam: Atraumatic, Normocephalic Neck: Normal Inspection, Supple, Non-Tender Respiratory/Chest: No Respiratory Distress, Lungs Clear, Normal Breath Sounds Cardiovascular: Normal Peripheral Pulses, Regular Rate, Rhythm, No Edema GI/Abdominal: Normal Bowel Sounds, Soft, Non-Tender Back Exam: Normal Inspection Extremities: Normal Inspection Psychiatric: Normal Affect, Normal Mood Skin Exam: Warm, Dry, Intact, Wound/Incision (3mm superficial abrasion of the left forehead - no bruising, no bleeding) Course - Orders/Labs/Meds Meds: Medications Discontinued Medications Generic Name Dose Route Start Last Admin Trade Name Cate PRN Reason Stop Dose Admin Ibuprofen 8,000 mg 08/15/18 17:30 Motrin .ROUTE 08/15/18 17:31 .STK-MED ONE Ondansetron HCl 20 mg 08/15/18 17:30 Zofran Odt .ROUTE 08/15/18 17:31 .STK-MED ONE Departure - Departure Time of Disposition: 18:00 Disposition: Home, Self-Care 01 Condition: Good Clinical Impression: Concussion Qualifiers: Encounter type: initial encounter Loss of consciousness presence/duration: without LOC Qualified Code(s): S06.0X0A - Concussion without loss of consciousness, initial encounter - Discharge Information Referrals: PCP,None [Primary Care Provider] - - Problem List & Annotations (1) Concussion SNOMED Code(s): 580652423 Code(s): S06.0X9A - CONCUSSION W LOSS OF CONSCIOUSNESS OF UNSP DURATION, INIT Status: Acute Priority: High Current Visit: Yes Qualifiers: Encounter type: initial encounter Loss of consciousness presence/duration: without LOC Qualified Code(s): S06.0X0A - Concussion without loss of consciousness, initial encounter - Problem List Review Problem List Initiated/Reviewed/Updated: Yes - Assessment/Plan Plan: Counseled on supportive and conservative care and management. Discussed f/u in clinic or ER if symptoms worsen. F/u as needed.
== END 2018-08-15 18:40 | disposition home or self-care (01) ==
LOC: LB.ED 17:11
DX: S06.0X0A Concussion without loss of consciousness, initial encounter (principal); F31.9 Bipolar disorder, unspecified; I10 Essential (primary) hypertension; K21.9 Gastro-esophageal reflux disease without esophagitis; F32.9 Major depressive disorder, single episode, unspecified; Z79.899 Other long term (current) drug therapy; Z88.1 Allergy status to other antibiotic agents; Z88.0 Allergy status to penicillin; Z91.09 Other allergy status, other than to drugs and biological substances; W01.190A Fall on same level from slipping, tripping and stumbling with subsequent striking against furniture, initial encounter
CPT/HCPCS: 99283; A9270

== ENCOUNTER 2019-06-14 20:13 | Emergency (ER) | payer MEDICAID ==
--- NOTE | 2019-06-14 20:30 | EDM.PDOC ---
ED HPI GENERAL MEDICAL PROBLEM - General Chief Complaint: General Stated Complaint: R LOWER BACK AND ABD PAIN Time Seen by Provider: 06/14/19 20:15 Source of Information: Reports: Patient History Limitations: Reports: No Limitations - History of Present Illness INITIAL COMMENTS - FREE TEXT/NARRATIVE: According to patient , she started having right sided lower back pain and the pain radiates form her right lower back into the anterior abdominal wall and into right groin. Started at 4 pm today. Pain is constant. No fever or chills. No nausea or vomiting. She claims for past 3 days she has been urinating frequently. No burning with urination. No abdominal distension, cough or shortness of breath. Pt is on her periods. Onset: Today Onset Date: 06/14/19 Onset Time: 16:00 Duration: Constant Location: Reports: Abdomen, Back Quality: Reports: Ache Severity: Moderate Improves with: Reports: None Worsens with: Reports: None Associated Symptoms: Denies: Confusion, Chest Pain, Cough, Diaphoresis, Fever/ Chills, Headaches, Nausea/Vomiting, Rash, Seizure, Shortness of Breath, Syncope , Weakness - Related Data Allergies Allergy/AdvReac Type Severity Reaction Status Date / Time ampicillin Allergy Anaphylactic Verified 06/14/19 20:42 Shock Penicillins Allergy Yeast Verified 06/14/19 20:42 Infections plastic adhesive tape Allergy Blisters Uncoded 10/20/18 11:15 Home Meds: Home Meds Albuterol [Proair HFA] 1 - 2 puff INH Q6HR PRN 03/08/16 [History] Desvenlafaxine [Pristiq] 100 mg PO DAILY 03/08/16 [History] Gabapentin 900 mg PO TID 03/08/16 [History] Pantoprazole Sodium [Protonix] 40 mg PO ACBREAKFAST 03/08/16 [History] Triamcinolone Acetonide [Nasacort AQ [place]] 1 spray VIOLA ASDIRECTED 03/08/16 [ History] lamoTRIgine [Lamotrigine] 100 mg PO DAILY 03/08/16 [History] traZODone HCl [Trazodone HCl] 100 mg PO QPM PRN 03/08/16 [History] Cyclobenzaprine [Flexeril] 10 mg PO BEDTIME #25 tab 12/09/16 [Rx] Propranolol HCl [Inderal LA] 60 mg PO DAILY 03/19/17 [History] Ibuprofen 800 mg PO TID 10/25/18 [History] Past Medical History HEENT History: Reports: Impaired Vision Other HEENT History: "Deviated septum showed on CT " Cardiovascular History: Reports: Hypertension Other Cardiovascular History: Took steroid for heart inflammation and fluid Respiratory History: Reports: Bronchitis, Recurrent, SOB Gastrointestinal History: Reports: Chronic Constipation, Chronic Diarrhea, GERD Other Gastrointestinal History: chronic abdominal pain 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 , , Other (See Below) 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 Musculoskeletal History: Reports: Back Pain, Chronic, Fracture, Other (See Below ) Other Musculoskeletal History: Tendonitis Neurological History: Reports: Concussion, Headaches, Chronic, Migraines Psychiatric History: Reports: Anxiety, Bipolar, Depression, Mood Swings, Panic Attack Hematologic History: Reports: Anemia Immunologic History: Reports: Other (See Below) Other Immunologic History: pt states she was told she has a weak immune system, but doesnt know why Oncologic (Cancer) History: Reports: Breast Dermatologic History: Reports: Other (See Below) Other Dermatologic History: boils - unknown etiology - Infectious Disease History Infectious Disease History: Reports: Chicken Pox - Past Surgical History Neurological Surgical History: Reports: Other (See Below) Other Neurological Surgeries/Procedures: nerve release in back. some nerve damage. Musculoskeletal Surgical History: Reports: None, Other (See Below) Other Musculoskeletal Surgeries/Procedures:: numerous back surgeries, last one 08/08 Oncologic Surgical History: Reports: Lumpectomy Other Oncologic Surgeries/Procedures: right breast lumpectomy -benign Social & Family History - Family History Family Medical History: Noncontributory Psychiatric: Reports: Anxiety, Bipolar, Depression - Caffeine Use Caffeine Use: Reports: Coffee - Living Situation & Occupation Living situation: Reports: Single ED ROS GENERAL - Review of Systems Review Of Systems: See Below Constitutional: Denies: Fever, Chills HEENT: Denies: Rhinitis, Throat Pain Respiratory: Denies: Shortness of Breath, Pleuritic Chest Pain, Cough, Sputum Cardiovascular: Denies: Chest Pain, Lightheadedness GI/Abdominal: Denies: Abdominal Pain, Constipation, Diarrhea, Nausea, Vomiting : Reports: Flank Pain, Frequency. Denies: Discharge, Dysuria, Hematuria, Incontinence, Urinary Retention Musculoskeletal: Denies: Joint Pain, Joint Swelling Skin: Denies: Bruising, Pruritis, Rash ED EXAM, GENERAL - Physical Exam Exam: See Below Exam Limited By: No Limitations General Appearance: Alert, WD/WN, No Apparent Distress Eye Exam: Bilateral Eye: EOMI, Proptosis Ears: Normal External Exam, Normal Canal, Hearing Grossly Normal, Normal TMs Ear Exam: Bilateral Ear: Auricle Normal, Canal Normal, TM normal Nose: Normal Inspection, Normal Mucosa, No Blood Throat/Mouth: Normal Inspection, Normal Lips, Normal Teeth, Normal Gums, Normal Oropharynx, Normal Voice, No Airway Compromise Head: Atraumatic, Normocephalic Neck: Normal Inspection, Supple, Non-Tender, Full Range of Motion Respiratory/Chest: No Respiratory Distress, Lungs Clear, Normal Breath Sounds, No Accessory Muscle Use, Chest Non-Tender Cardiovascular: Normal Peripheral Pulses, Regular Rate, Rhythm, No Edema, No Gallop, No JVD, No Murmur, No Rub GI/Abdominal: Normal Bowel Sounds, Soft, Non-Tender, No Organomegaly, No Distention, No Abnormal Bruit, No Mass Back Exam: Normal Inspection, Full Range of Motion Extremities: Normal Inspection, Normal Range of Motion, Non-Tender, Normal Capillary Refill, No Pedal Edema Skin Exam: Warm, Intact Course - Vital Signs Text/Narrative:: Pt claims she has been having urinary frequency for 3 days and today has been having right lower back pain with radiation into right abdomen and groin. Pt's UA is negative for infection, there is blood in the urine. Her CBC is normal. Pt reassured that she does not have appendicitis or UTI . she describes renal stone like pain with positive blood in the urine. Pt is on her periods. Pt is a very frequent visitor to emergency room with varius symptoms and complaints. She has had several abdominal, pelvic and chest CTs done in the recent 3-5 years. She might be passing small renal stone. I have reassured patient that if she was passing the stone, considering her pain is in the right lower abdomen and groin, the stone is close to ureterovesical junction. It could be passed without any complication. If the pain gets worse she could return in 48 hrs and have a scan done. She did received Toradol 30mg IM today. She did receive flomax 0.4mg in the emergency room. Advised plenty of fluids (2-3 liters per day) to flush the stone. Pain control with toradol 10mg 3 times daily. Followup in clinic tomorrow if pain worsens. - Orders/Labs/Meds Orders: Active Orders 24 hr Category Date Time Status CULTURE URINE [RM] Routine Lab 06/14/19 20:37 Received Ketorolac [Toradol] Med 06/14/19 20:54 Once 30 mg IM ONETIME ONE Tamsulosin [Flomax] Med 06/14/19 20:54 Once 0.4 mg PO ONETIME ONE Labs: Laboratory Tests 06/14/19 06/14/19 Range/Units 20:37 20:37 WBC 9.4 (4.0-11.0) K/uL RBC 4.57 (3.80-5.80) M/uL Hgb 13.9 (11.5-16.5) g/dL Hct 42.1 (37.0-47.0) % MCV 92 (76-96) fL MCH 30.4 (27.0-32.0) pg MCHC 33.0 (31.0-35.0) g/dL RDW 14.0 (11.0-16.0) % Plt Count 291 (150-500) K/uL MPV 10.2 H (6.0-10.0) fL Neut % (Auto) 60.4 (45.0-70.0) % Lymph % (Auto) 30.6 (20.0-40.0) % Roberts % (Auto) 7.4 (3.0-10.0) % Eos % (Auto) 1.2 (1.0-5.0) % Baso % (Auto) 0.4 (0.0-0.5) % Neut # (Auto) 5.68 (2.00-7.50) K/uL Lymph # (Auto) 2.88 (1.50-4.00) K/uL Roberts # (Auto) 0.70 (0.20-0.80) K/uL Eos # (Auto) 0.11 (0.04-0.40) K/uL Baso # (Auto) 0.04 (0.02-0.10) K/uL Urine Color Yellow Urine Appearance Clear (CLEAR) Urine pH 6.0 (5.0-8.0) Ur Specific [place] 1.020 (1.003-1.030) Urine Protein Negative (NEGATIVE) mg/dL Urine Glucose (UA) Negative (NEGATIVE) mg/dL Urine Ketones Negative (NEGATIVE) mg/dL Urine Occult Blood Large H (NEGATIVE) Urine Nitrite Negative (NEGATIVE) Urine Bilirubin Negative (NEGATIVE) Urine Urobilinogen 0.2 (0.2-1.0) E.U./dL Ur Leukocyte Esterase Trace H (NEGATIVE) Urine RBC 75-100 H /HPF Urine WBC 0-5 H /HPF Ur Squamous Epith Cells Moderate /HPF Departure - Departure Time of Disposition: 21:00 Disposition: Home, Self-Care 01 Condition: Fair Clinical Impression: Ureteric colic - Discharge Information *PRESCRIPTION DRUG MONITORING PROGRAM REVIEWED*: Not Applicable *COPY OF PRESCRIPTION DRUG MONITORING REPORT IN PATIENT RIKY: Not Applicable Forms: ED Department Discharge Additional Instructions: Pt claims she has been having urinary frequency for 3 days and today has been having right lower back pain with radiation into right abdomen and groin. Pt's UA is negative for infection, there is blood in the urine. Her CBC is normal. Pt reassured that she does not have appendicitis or UTI . she describes renal stone like pain with positive blood in the urine. Pt is on her periods too. Pt is a very frequent visitor to emergency room with varius symptoms and complaints. She has had several abdominal, pelvic and chest CTs done in the recent 3-5 years. She might be passing small renal stone. I have reassured patient that if she was passing the stone, considering her pain is in the right lower abdomen and groin, the stone is close to ureterovesical junction. It could be passed without any complication. If the pain gets worse she could return in 48 hrs and have a scan done. She did received Toradol 30mg IM today. She did receive flomax 0.4mg in the emergency room. Advised plenty of fluids (2-3 liters per day) to flush the stone. Pain control with toradol 10mg 3 times daily. Followup in clinic tomorrow if pain worsens. - Problem List & Annotations (1) Ureteric colic SNOMED Code(s): 45319115 Code(s): N23 - UNSPECIFIED RENAL COLIC Status: Acute - Problem List Review Problem List Initiated/Reviewed/Updated: Yes - My Orders Last 24 Hours: My Active Orders 06/14/19 20:37 CULTURE URINE [RM] Routine 06/14/19 20:54 Ketorolac [Toradol] 30 mg IM ONETIME ONE Tamsulosin [Flomax] 0.4 mg PO ONETIME ONE - Assessment/Plan Last 24 Hours: My Active Orders 06/14/19 20:37 CULTURE URINE [RM] Routine 06/14/19 20:54 Ketorolac [Toradol] 30 mg IM ONETIME ONE Tamsulosin [Flomax] 0.4 mg PO ONETIME ONE Assessment:: Right ureteric colic Plan: Pt claims she has been having urinary frequency for 3 days and today has been having right lower back pain with radiation into right abdomen and groin. Pt's UA is negative for infection, there is blood in the urine. Her CBC is normal. Pt reassured that she does not have appendicitis or UTI . she describes renal stone like pain with positive blood in the urine. Pt is a very frequent visitor to emergency room with varius symptoms and complaints. She has had several abdominal, pelvic and chest CTs done in the recent 3-5 years. She might be passing small renal stone. I have reassured patient that if she was passing the stone, considering her pain is in the right lower abdomen and groin, the stone is close to ureterovesical junction. It could be passed without any complication. If the pain gets worse she could return in 48 hrs and have a scan done. She did received Toradol 30mg IM today. She did receive flomax 0.4mg in the emergency room. Advised plenty of fluids (2-3 liters per day) to flush the stone. Pain control with toradol 10mg 3 times daily. Followup in clinic tomorrow if pain worsens.
[2019-06-14] MEDS ORDERED: Ketorolac 30 MG/ML SDV IM ONE (20:50)
[2019-06-14] MEDS ORDERED: Tamsulosin 0.4 MG Cap.ER PO ONE (20:54)
[2019-06-14] MEDS ORDERED: Ketorolac 60 MG/2 ML SDV IM ONE (20:54)
[2019-06-14] MEDS ORDERED: Ketorolac 10 MG Tab ONE (21:00)
[2019-06-14 21:11] VITALS: BP 154/86; PULSE 78
== END 2019-06-14 21:03 | disposition home or self-care (01) ==
LOC: LB.ED 20:13
DX: N23 Unspecified renal colic (principal); I10 Essential (primary) hypertension; K21.9 Gastro-esophageal reflux disease without esophagitis; F31.9 Bipolar disorder, unspecified; F41.9 Anxiety disorder, unspecified; Z88.1 Allergy status to other antibiotic agents; Z91.048 Other nonmedicinal substance allergy status; Z79.899 Other long term (current) drug therapy
CPT/HCPCS: 36415; 81001; 85025; 87086; 96372; 99284; A9270; J1885; 99283

== ENCOUNTER 2019-07-24 09:12 | Emergency (ER) | payer MEDICAID ==
[2019-07-24] MEDS ORDERED: Benzonatate 100 MG Cap ONE (10:00)
--- NOTE | 2019-07-24 14:41 | CR ---
Date of Service: 07/24/19 Clinical Data: cough PA AND LATERAL CHEST: Comparison is made to a prior exam dated 07/15/18. The heart size is normal. The lungs are clear. No pneumothorax. No pleural effusions. No evidence of acute intrathoracic disease. [id number] [facility]
--- NOTE | 2019-07-24 16:55 | ER ---
REASON FOR EMERGENCY ROOM VISIT: Coughing, chest congestion, and pain with coughing. HISTORY OF PRESENT ILLNESS: This unfortunate 38-year-old woman has a long list of medical problems, for which she has been seen innumerable times both in the clinic and in the emergency department over the past few years. She does admit to a longstanding history of smoking and has been trying to quit over the past month. For the past 6 months , she states that she has had severe coughing episodes frequently associated with the expectoration of thick white sputum. When she breathes deep, she gets chest pain principally in her lower subcostal areas bilaterally. This has tended to wax and wane depending on the severity of her coughing spells. She also tends to get some back stiffness and lower back pain when she has these episodes of coughing. She has been told that she has had a diagnosis of chronic bronchitis made in the past and she does use albuterol inhaler periodically. Lately, she has had more coughing than usual over the past couple of weeks. In fact, she saw Dr. Smith for this as well as some headaches a couple of weeks ago. During that visit, she had blood work, chest x-ray and head CT scan, which were all negative. She states that she gets lightheadedness with coughing and reviewing her medical record, she has had this complaint on a number of occasions. She has been to the emergency department for episodes of what sounds like vertigo and these have all been transient in the past. She thinks she might have had some fever and diaphoresis a few days ago. Her appetite has been decreased over the past couple of weeks. She has had episodes with some retching when she has had severe coughing paroxysms, but this is not a new development. As mentioned above, she has had an astonishing number of x-ray and evaluations in the past including CT scans and plain films of her chest, spine, abdomen, and had none of these have been revealing. PAST MEDICAL HISTORY: Medical problems include the followin. Hypertension. 2. Pericarditis. 3. Bronchitis with recurrent episodes of dyspnea and cough. 4. Constipation. 5. GERD. 6. Recurrent abdominal pains. 7. History of ectopic x2. 8. Chronic recurrent back pain. 9. Recurrent headaches with history of migraines. 10.Anxiety, depression, and past episodes of panic attacks. 11.Bipolar disorder. 12.Anemia. 13.Recurrent episodes of dizziness or lightheadedness. ALLERGIES: SHE IS ALLERGIC TO PENICILLIN, AMPICILLIN AND ADHESIVE TAPES. MEDICATIONS: Reviewed. Please see electronic medical record, they include the followin. Trazodone 100 mg p.o. q.p.m. 2. Lamotrigine 100 mg p.o. daily. 3. Nasacort p.r.n. 4. Inderal LA 60 mg p.o. daily. 5. Protonix 40 mg p.o. daily. 6. Ibuprofen. 7. Gabapentin 900 mg p.o. t.i.d. 8. Flexeril 10 mg p.o. at bedtime p.r.n. 9. Albuterol inhaler p.r.n. REVIEW OF SYSTEMS: Pertinent positives and negatives as listed in the HPI. PHYSICAL EXAMINATION: VITAL SIGNS: She is afebrile. See electronic medical record. HEENT: Head is normocephalic. Pupils equally round, reactive to light. There is no scleral icterus or conjunctivitis. TMs are visualized and normal. Oropharynx is normal. NECK: Supple. No adenopathy. No bruits. No thyromegaly. Normal passive range of motion is noted. CHEST: Clear to auscultation with good air exchange bilaterally. No wheezes, rhonchi, or rales. CARDIAC EXAMINATION: Regular rate without murmur. ABDOMEN : Obese, soft, nontender. No hepatosplenomegaly. EXTREMITIES: Normal pulses. No edema. NEUROLOGIC: She follows commands. She is moving all 4 extremities. LABORATORY DATA: Her CBC was normal with a white count of 10.5 x10 to 3rd. She has no anemia. Chest x-ray shows no active pulmonary disease and no cardiomegaly. IMPRESSION: Recurrent bronchitis. PLAN: I encouraged her to continue in her efforts to discontinue smoking. I do not see any indication for antibiotics or steroids. She will probably have these symptoms for quite some time, even with smoking cessation, and may be problematic chronically going forward after she quit smoking. Without smoking, she can expect these symptoms to continue to plague her. She was given a prescription for Tessalon Perles 100 mg 1 p.o. q.8 hours p.r.n. coughing, dispense #10. I advised her to follow up with her provider, Dr. Smith, later this week. She understands and agrees. All questions were answered. STEPHAN/LYNNE /[id number] MTDYessi
== END 2019-07-24 10:10 | disposition home or self-care (01) ==
LOC: LB.ED 09:12
DX: J40 Bronchitis, not specified as acute or chronic (principal); I10 Essential (primary) hypertension; Z79.51 Long term (current) use of inhaled steroids; F32.9 Major depressive disorder, single episode, unspecified; F41.0 Panic disorder [episodic paroxysmal anxiety]; Z88.0 Allergy status to penicillin; Z88.1 Allergy status to other antibiotic agents; Z79.899 Other long term (current) drug therapy; Z86.2 Personal history of diseases of the blood and blood-forming organs and certain disorders involving the immune mechanism; Z91.048 Other nonmedicinal substance allergy status
CPT/HCPCS: 36415; 71046; 85025; 99284-25; A9270-GY

== ENCOUNTER 2019-10-09 12:10 | Emergency (ER) | payer MEDICAID ==
--- NOTE | 2019-10-09 12:59 | EDM.PDOC ---
ED HPI GENERAL MEDICAL PROBLEM - General Chief Complaint: Upper Extremity Injury/Pain Stated Complaint: right shoulder pain Time Seen by Provider: 10/09/19 12:45 Source of Information: Reports: Patient, RN History Limitations: Reports: No Limitations - History of Present Illness INITIAL COMMENTS - FREE TEXT/NARRATIVE: 39 yo female presents with right shoulder pain from injury going down the stairs at her apartment complex, happened on Wednesday and she monitored for a few days and now presents to the ER. She is taking Ibuprofen and Gabapentin for her pain Right Shoulder Pain Score (Numeric/FACES): 10 - Related Data Allergies Allergy/AdvReac Type Severity Reaction Status Date / Time ampicillin Allergy Anaphylactic Verified 10/09/19 12:42 Shock Penicillins Allergy Yeast Verified 10/09/19 12:42 Infections plastic adhesive tape Allergy Blisters Uncoded 07/24/19 09:49 Home Meds: Home Meds Albuterol [Proair HFA] 1 - 2 puff INH Q6HR PRN 03/08/16 [History] Desvenlafaxine [Pristiq] 100 mg PO DAILY 03/08/16 [History] Gabapentin 900 mg PO TID 03/08/16 [History] Pantoprazole Sodium [Protonix] 40 mg PO ACBREAKFAST 03/08/16 [History] Triamcinolone Acetonide [Nasacort AQ [place]] 1 spray VIOLA ASDIRECTED 03/08/16 [ History] lamoTRIgine [Lamotrigine] 100 mg PO DAILY 03/08/16 [History] traZODone HCl [Trazodone HCl] 100 mg PO QPM PRN 03/08/16 [History] Cyclobenzaprine [Flexeril] 10 mg PO BEDTIME #25 tab 12/09/16 [Rx] Propranolol HCl [Inderal LA] 60 mg PO DAILY 03/19/17 [History] Ibuprofen 800 mg PO TID 10/25/18 [History] Losartan [Cozaar] 25 mg PO DAILY 10/09/19 [History] Past Medical History HEENT History: Reports: Impaired Vision Other HEENT History: "Deviated septum showed on CT " Cardiovascular History: Reports: Hypertension Other Cardiovascular History: Took steroid for heart inflammation and fluid Respiratory History: Reports: Bronchitis, Recurrent, SOB Gastrointestinal History: Reports: Chronic Constipation, Chronic Diarrhea, GERD Other Gastrointestinal History: chronic abdominal pain 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 , , 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 (See 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) 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 Musculoskeletal History: Reports: Back Pain, Chronic, Fracture, Other (See Below ) Other Musculoskeletal History: Tendonitis Neurological History: Reports: Concussion, Headaches, Chronic, Migraines Psychiatric History: Reports: Anxiety, Bipolar, Depression, Mood Swings, Panic Attack Hematologic History: Reports: Anemia Immunologic History: Reports: Other (See Below) Other Immunologic History: pt states she was told she has a weak immune system, but doesnt know why Oncologic (Cancer) History: Reports: Breast Dermatologic History: Reports: Other (See Below) Other Dermatologic History: boils - unknown etiology - Infectious Disease History Infectious Disease History: Reports: Chicken Pox - Past Surgical History Neurological Surgical History: Reports: Other (See Below) Other Neurological Surgeries/Procedures: nerve release in back. some nerve damage. Musculoskeletal Surgical History: Reports: None, Other (See Below) Other Musculoskeletal Surgeries/Procedures:: numerous back surgeries, last one 08/08 Oncologic Surgical History: Reports: Lumpectomy Other Oncologic Surgeries/Procedures: right breast lumpectomy -benign Social & Family History - Family History Family Medical History: Noncontributory Psychiatric: Reports: Anxiety, Bipolar, Depression - Caffeine Use Caffeine Use: Reports: Coffee - Living Situation & Occupation Living situation: Reports: Single Review of Systems - Review of Systems Review Of Systems: See Below Constitutional: Reports: No Symptoms Respiratory: Reports: No Symptoms Cardiovascular: Reports: No Symptoms Musculoskeletal: Reports: Shoulder Pain Skin: Reports: No Symptoms ED EXAM, GENERAL - Physical Exam Exam: See Below Exam Limited By: No Limitations General Appearance: Alert, No Apparent Distress Ears: Hearing Grossly Normal Nose: Normal Inspection Throat/Mouth: Normal Voice, No Airway Compromise Head: Atraumatic, Normocephalic Neck: Supple, Non-Tender Respiratory/Chest: No Respiratory Distress, Lungs Clear, Normal Breath Sounds Cardiovascular: Regular Rate, Rhythm, No Edema GI/Abdominal: Normal Bowel Sounds, Soft, Non-Tender, No Distention Extremities: Limited Range of Motion, Other (pain with lifitng right arm) Neurological: Alert, Oriented, Normal Cognition Psychiatric: Normal Affect, Normal Mood Skin Exam: Warm, Dry, Normal Color Course - Vital Signs Last Recorded V/S: Last Vital Signs Temp 98.1 F 10/09/19 14:29 Pulse 82 10/09/19 14:29 Resp 18 10/09/19 14:29 BP 158/88 H 10/09/19 14:29 Pulse Ox 99 10/09/19 14:29 - Orders/Labs/Meds Meds: Medications Discontinued Medications Generic Name Dose Route Start Last Admin Trade Name Cate PRN Reason Stop Dose Admin Ketorolac Tromethamine 30 mg 10/09/19 13:34 10/09/19 13:41 Toradol IM 10/09/19 13:35 30 mg ONETIME ONE Administration Ketorolac Tromethamine Confirm 10/09/19 13:44 Toradol Administered 10/09/19 13:45 Dose 30 mg .ROUTE .STK-MED ONE - Re-Assessments/Exams Free Text/Narrative Re-Assessment/Exam: 10/09/19 18:26 LE X-ray or right shoulder today. Radiology read is pending. Recommend use of Tylenol or Ibuprofen for relief of pain. May take her Flexeril at hs for relief of muscle spasm pain. May use ice or heat to area up to 5x/day for 20 minute periods. RTC in 10-14 days for follow-up. Departure - Departure Time of Disposition: 13:48 Disposition: Home, Self-Care 01 Condition: Good Clinical Impression: Right shoulder injury, Muscle spasm of right shoulder - Discharge Information *PRESCRIPTION DRUG MONITORING PROGRAM REVIEWED*: Not Applicable *COPY OF PRESCRIPTION DRUG MONITORING REPORT IN PATIENT RIKY: Not Applicable Referrals: PCP,None [Primary Care Provider] - Forms: ED Department Discharge Additional Instructions: - Continue resting the affected shoulder and apply ice and warm pack alternately 4-5 times daily in 20 minutes each time. - Continue taking Ibuprofen 800 mg every 8 hours regularly for the next 3 days. - Take Flexeril at bedtime daily for the next five day. - Follow-up in the clinic next week with provider. - Assessment/Plan Plan: Recommend use of Tylenol or Ibuprofen for relief of pain. May take her Flexeril at hs for relief of muscle spasm pain. May use ice or heat to area up to 5x/day for 20 minute periods. RTC in 10-14 days for follow-up.
[2019-10-09] MEDS: Ketorolac 30 MG/ML SDV IM ONE (13:41)
[2019-10-09] MEDS: Ketorolac 30 MG/ML SDV ONE (13:41)
[2019-10-09 14:31] VITALS: BP 158/88; PULSE 82
--- NOTE | 2019-10-09 15:09 | CR ---
DATE OF SERVICE: 10/09/19 CLINICAL DATA: Injury to shoulder at home. 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 No acute abnormalities. No lytic or blastic bone lesions. [id number] [facility]
== END 2019-10-09 13:54 | disposition home or self-care (01) ==
LOC: LB.ED 12:10
DX: S49.91XA Unspecified injury of right shoulder and upper arm, initial encounter (principal); I10 Essential (primary) hypertension; K21.9 Gastro-esophageal reflux disease without esophagitis; F41.9 Anxiety disorder, unspecified; F32.9 Major depressive disorder, single episode, unspecified; Z88.0 Allergy status to penicillin; Z91.048 Other nonmedicinal substance allergy status; Z79.899 Other long term (current) drug therapy; W10.9XXA Fall (on) (from) unspecified stairs and steps, initial encounter; Y92.039 Unspecified place in apartment as the place of occurrence of the external cause
CPT/HCPCS: 73030-RT; 96372; 99283; 99283-25; J1885

== ENCOUNTER → 2019-11-17 | Outpatient (CLI) | payer MEDICAID | LOC: LB.CLINIC 16:00 | PROVIDERS: ATTEND Nurse Practitioner Family | DX: R53.83 Other fatigue (principal); R05 Cough | CPT/HCPCS: 36415; 85025; 87804; 87804-59 ==

== ENCOUNTER 2019-12-13 09:14 | Emergency (ER) | payer MEDICAID ==
[2019-12-13 09:31] VITALS: BP 148/72; PULSE 98
[2019-12-13] MEDS ORDERED: Sodium Chloride 0.9% with KCl 1,000 ML IV SCH (11:00)
--- NOTE | 2019-12-13 11:16 | CR ---
DATE OF SERVICE: 12/13/19 CLINICAL DATA: Cough. PA AND LATERAL CHEST: Comparison made to a prior exam dated 07/24/19. The heart size is normal. The lungs are clear. No pneumothorax. No pleural effusions. No evidence of acute intrathoracic disease. [id number] [facility]
[2019-12-13] MEDS ORDERED: Ketorolac 30 MG/ML SDV IVPUSH ONE (11:23)
[2019-12-13] MEDS ORDERED: Ketorolac 30 MG/ML SDV ONE (11:31)
--- NOTE | 2019-12-13 14:20 | EDM.PDOC ---
ED HPI GENERAL MEDICAL PROBLEM - General Chief Complaint: General Stated Complaint: FEVER Time Seen by Provider: 12/13/19 09:50 Source of Information: Reports: Patient History Limitations: Reports: No Limitations - History of Present Illness INITIAL COMMENTS - FREE TEXT/NARRATIVE: This is a 39yo F here for feeling sick, cough, fever and aches. She states she is feeling sicker despite taking her antibiotics. She only has 3 days left. Onset: Gradual Duration: Day(s): Location: Reports: Chest, Generalized Severity: Moderate Improves with: Reports: None Worsens with: Reports: None Associated Symptoms: Reports: Fever/Chills, Weakness Generalized Pain Score (Numeric/FACES): 10 - Related Data Allergies Allergy/AdvReac Type Severity Reaction Status Date / Time ampicillin Allergy Anaphylactic Verified 12/13/19 09:41 Shock Penicillins Allergy Yeast Verified 12/13/19 09:41 Infections plastic adhesive tape Allergy Blisters Uncoded 12/13/19 09:41 Home Meds: Home Meds Albuterol [Proair HFA] 1 - 2 puff INH Q6HR PRN 03/08/16 [History] Desvenlafaxine [Pristiq] 100 mg PO DAILY 03/08/16 [History] Gabapentin 900 mg PO TID 03/08/16 [History] Pantoprazole Sodium [Protonix] 40 mg PO ACBREAKFAST 03/08/16 [History] Triamcinolone Acetonide [Nasacort AQ Maryneal] 1 spray VIOLA ASDIRECTED 03/08/16 [ History] lamoTRIgine [Lamotrigine] 100 mg PO DAILY 03/08/16 [History] traZODone HCl [Trazodone HCl] 100 mg PO QPM PRN 03/08/16 [History] Cyclobenzaprine [Flexeril] 10 mg PO BEDTIME #25 tab 12/09/16 [Rx] Propranolol HCl [Inderal LA] 60 mg PO DAILY 03/19/17 [History] Ibuprofen 800 mg PO TID 10/25/18 [History] Losartan [Cozaar] 25 mg PO DAILY 10/09/19 [History] Past Medical History HEENT History: Reports: Impaired Vision Other HEENT History: "Deviated septum showed on CT " Cardiovascular History: Reports: Hypertension Other Cardiovascular History: Took steroid for heart inflammation and fluid Respiratory History: Reports: Bronchitis, Recurrent, SOB Gastrointestinal History: Reports: Chronic Constipation, Chronic Diarrhea, GERD Other Gastrointestinal History: chronic abdominal pain 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 , , Other (See Below) 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 RECORD TABULATING CLERK History: two etopic pregnancies Musculoskeletal History: Reports: Back Pain, Chronic, Fracture, Other (See Below ) Other Musculoskeletal History: Tendonitis Neurological History: Reports: Concussion, Headaches, Chronic, Migraines Psychiatric History: Reports: Anxiety, Bipolar, Depression, Mood Swings, Panic Attack Hematologic History: Reports: Anemia Immunologic History: Reports: Other (See Below) Other Immunologic History: pt states she was told she has a weak immune system, but doesnt know why Oncologic (Cancer) History: Reports: Breast Dermatologic History: Reports: Other (See Below) Other Dermatologic History: boils - unknown etiology - Infectious Disease History Infectious Disease History: Reports: Chicken Pox - Past Surgical History Neurological Surgical History: Reports: Other (See Below) Other Neurological Surgeries/Procedures: nerve release in back. some nerve damage. Musculoskeletal Surgical History: Reports: None, Other (See Below) Other Musculoskeletal Surgeries/Procedures:: numerous back surgeries, last one 08/08 Oncologic Surgical History: Reports: Lumpectomy Other Oncologic Surgeries/Procedures: right breast lumpectomy -benign Social & Family History - Family History Family Medical History: Noncontributory Psychiatric: Reports: Anxiety, Bipolar, Depression - Tobacco Use Smoking Status *Q: Current Every Day Smoker Years of Tobacco use: 20 Packs/Tins Daily: 0.5 - Caffeine Use Caffeine Use: Reports: Coffee, Soda - Recreational Drug Use Recreational Drug Use: No - Living Situation & Occupation Living situation: Reports: Single ED ROS GENERAL - Review of Systems Review Of Systems: Comprehensive ROS is negative, except as noted in HPI. ED EXAM, GENERAL - Physical Exam Exam: See Below Exam Limited By: No Limitations General Appearance: Alert, WD/WN, Mild Distress Eye Exam: Bilateral Eye: EOMI, PERRL Ears: Normal External Exam Ear Exam: Bilateral Ear: Auricle Normal, Canal Normal Nose: Normal Inspection Throat/Mouth: Normal Inspection Head: Atraumatic, Normocephalic Neck: Normal Inspection, Supple, Non-Tender Respiratory/Chest: Decreased Breath Sounds, Rhonchi Cardiovascular: Normal Peripheral Pulses, Regular Rate, Rhythm Peripheral Pulses: 2+: Dorsalis Pedis (L), Dorsalis Pedis (R) GI/Abdominal: Normal Bowel Sounds Back Exam: Normal Inspection Extremities: Normal Inspection Neurological: Alert, Oriented, CN II-XII Intact Psychiatric: Normal Affect, Normal Mood Skin Exam: Warm, Dry, Intact Course - Vital Signs Last Recorded V/S: Last Vital Signs Temp 37.7 C 12/13/19 10:04 Pulse 98 12/13/19 09:24 Resp 20 12/13/19 09:24 BP 148/72 H 12/13/19 09:24 Pulse Ox 98 12/13/19 09:24 - Orders/Labs/Meds Labs: Laboratory Tests 12/13/19 12/13/19 12/13/19 Range/Units 10:10 10:10 10:10 WBC 4.2 D (4.0-11.0) K/uL RBC 4.53 (3.80-5.80) M/uL Hgb 13.5 (11.5-16.5) g/dL Hct 40.7 (37.0-47.0) % MCV 90 (76-96) fL MCH 29.8 (27.0-32.0) pg MCHC 33.2 (31.0-35.0) g/dL RDW 14.9 (11.0-16.0) % Plt Count 241 D (150-500) K/uL MPV 10.1 H (6.0-10.0) fL Neut % (Auto) 51.9 (45.0-70.0) % Lymph % (Auto) 30.8 (20.0-40.0) % Wake % (Auto) 15.9 H (3.0-10.0) % Eos % (Auto) 1.2 (1.0-5.0) % Baso % (Auto) 0.2 (0.0-0.5) % Neut # (Auto) 2.16 (2.00-7.50) K/uL Lymph # (Auto) 1.28 L (1.50-4.00) K/uL Wake # (Auto) 0.66 (0.20-0.80) K/uL Eos # (Auto) 0.05 (0.04-0.40) K/uL Baso # (Auto) 0.01 L (0.02-0.10) K/uL Sodium 140 (136-145) mmol/L Potassium 2.9 L* D (3.5-5.1) mmol/L Chloride 102 (98-107) mmol/L Carbon Dioxide 25.6 (21.0-32.0) mmol/L Anion Gap 15.3 H (5.0-15.0) mmol/L BUN 10 (8-26) mg/dL Creatinine 0.80 (0.55-1.02) mg/dL Est Cr Clr Drug Dosing TNP Estimated GFR (MDRD) > 60 (>60) MLS/MIN BUN/Creatinine Ratio 12.5 (6-25) Glucose 109 H (74-100) mg/dL Lactic Acid 1.48 (0.90-1.70) mmol/L Calcium 8.1 L (8.5-10.1) mg/dL Total Bilirubin 0.3 D (0.0-1.0) mg/dL AST 27 (15-37) U/L ALT 33 (12-78) U/L Alkaline Phosphatase 103 (46-116) U/L Total Protein 7.2 (6.4-8.2) g/dL Albumin 2.9 L (3.4-5.0) g/dL Globulin 4.3 H (2.2-4.2) g/dL Albumin/Globulin Ratio 0.7 L (0.8-2.0) Meds: Medications Discontinued Medications Generic Name Dose Route Start Last Admin Trade Name Freq PRN Reason Stop Dose Admin Potassium Chloride/Sodium Chloride 1,000 mls @ 999 mls/hr 12/13/19 11:00 11:03 Normal Saline With 40 Meq Kcl IV 999 mls/hr ASDIRECTED TYREL Administration Ketorolac Tromethamine 30 mg 12/13/19 11:23 12/13/19 11:25 Toradol IVPUSH 12/13/19 11:24 30 mg ONETIME ONE Administration Ketorolac Tromethamine Confirm 12/13/19 11:31 12/13/19 11:38 Toradol Administered 12/13/19 11:32 Not Given Dose 30 mg .ROUTE .STK-MED ONE Departure - Departure Time of Disposition: 13:00 Disposition: Home, Self-Care 01 Condition: Good Clinical Impression: Viral syndrome, Hypokalemia - Discharge Information Instructions: Upper Respiratory Infection, Adult, [id number] Referrals: PCP,None [Primary Care Provider] - Forms: ED Department Discharge Additional Instructions: Discharge home. Continue taking antibiotics, Levaquin 1 tablet by mouth daily until gone. Get plenty of rest and drink lots of water and juice. Follow up with your primary provider as needed. Sepsis Event Note - Evaluation Sepsis Screening Result: Possible Sepsis Risk - Focused Exam Vital Signs: Vital Signs Temp Pulse Resp BP Pulse Ox 12/13/19 10:04 37.7 C 12/13/19 09:41 37.8 C 12/13/19 09:24 38.1 C 98 20 148/72 H 98 12/13/19 09:17 38.1 C 98 20 148/72 H 98 Date Exam was Performed: 12/13/19 Time Exam was Performed: 14:16 - Problem List & Annotations (1) Hypokalemia SNOMED Code(s): 33858383 Code(s): E87.6 - HYPOKALEMIA Status: Acute Priority: High (2) Viral syndrome SNOMED Code(s): 78284711 Code(s): B34.9 - VIRAL INFECTION, UNSPECIFIED Status: Acute Priority: High - Problem List Review Problem List Initiated/Reviewed/Updated: Yes - Assessment/Plan Plan: Counseled on hydration, supportive care and management. Discussed continued f/u as needed and rtc or ER if any further concerns. Discussed course of viral infection and f/u if symptoms persist or worsen.
== END 2019-12-13 13:50 | disposition home or self-care (01) ==
LOC: LB.ED 09:14
DX: B34.9 Viral infection, unspecified (principal); E87.6 Hypokalemia; K21.9 Gastro-esophageal reflux disease without esophagitis; F32.9 Major depressive disorder, single episode, unspecified; F17.210 Nicotine dependence, cigarettes, uncomplicated; I10 Essential (primary) hypertension; Z79.899 Other long term (current) drug therapy; Z88.6 Allergy status to analgesic agent; Z88.0 Allergy status to penicillin; Z91.048 Other nonmedicinal substance allergy status
CPT/HCPCS: 36415; 71046; 80053; 83605; 85025; 87430; 87804; 87804-59; 96365; 96366; 96375; 99284; 99285-25; J1885; J3480

== ENCOUNTER 2020-01-22 12:28 | Emergency (ER) | payer MEDICAID ==
[2020-01-22 13:11] VITALS: BP 147/101; PULSE 88
[2020-01-22] MEDS ORDERED: Sodium Chloride 0.9% 1,000 ML IV ONE (13:13)
[2020-01-22] MEDS ORDERED: Meclizine 12.5 MG Tab PO ONE (13:19)
--- NOTE | 2020-01-22 17:27 | CT ---
DATE OF SERVICE: 01/22/20 CLINICAL DATA: headache UNENHANCED BRAIN CT: Multislice acquisition through the brain without IV contrast was performed. Comparison is made to a prior exam dated 07/14/19. No masses or mass effect. No intracranial hemorrhage. No evidence of acute or subacute infarct. No osseous abnormalities. IMPRESSION: No acute intracranial abnormalities. [id number] [facility]
--- NOTE | 2020-01-22 20:31 | EDM.PDOC ---
ED HPI GENERAL MEDICAL PROBLEM - General Chief Complaint: Respiratory Problem Stated Complaint: DIZZY AND FEELS WIERD Time Seen by Provider: 01/22/20 12:45 Source of Information: Reports: Patient, Family History Limitations: Reports: Other - History of Present Illness INITIAL COMMENTS - FREE TEXT/NARRATIVE: Upon my arrival, the patient stated that she would rather lay down and rest a bit rather than reiterate her history. It is evident that she was on a bus with some people who were wearing masks apparently for respiratory symptoms. She went on to develop a cough that is been very annoying for her over the last couple of weeks. She does have a mild headache and this is certainly not out of the norm for her. She presented to the ER today mainly because she just did not feel well. In review of her medical history, she does have frequent presentations to the emergency room for various medical reasons. Her history was reviewed with her spouse who notes that she seems to be somewhat dehydrated besides drinking a lot of water recently. She has had no lethargy or neurologic changes. She denies chest discomfort as well as GI or symptoms. She has tried multiple remedies for her cough [id number], and has had no associated orthopnea or paroxysmal nocturnal dyspnea. She does not recall ever having any heart issues, although she was noted to have a type B natruretic peptide in the 400 range the last couple of years ago. She would be in favor of at least starting with an echocardiogram out of concern for her heart. There is no family history of early atherosclerotic disease. Headache Pain Score (Numeric/FACES): 4 - Related Data Allergies Allergy/AdvReac Type Severity Reaction Status Date / Time ampicillin Allergy Anaphylactic Verified 12/13/19 09:41 Shock Penicillins Allergy Yeast Verified 12/13/19 09:41 Infections plastic adhesive tape Allergy Blisters Uncoded 12/13/19 09:41 Home Meds: Home Meds Albuterol [Proair HFA] 1 - 2 puff INH Q6HR PRN 03/08/16 [History] Desvenlafaxine [Pristiq] 100 mg PO DAILY 03/08/16 [History] Gabapentin 900 mg PO TID 03/08/16 [History] Pantoprazole Sodium [Protonix] 40 mg PO ACBREAKFAST 03/08/16 [History] Triamcinolone Acetonide [Nasacort AQ Cable] 1 spray VIOLA ASDIRECTED 03/08/16 [ History] lamoTRIgine [Lamotrigine] 100 mg PO DAILY 03/08/16 [History] traZODone HCl [Trazodone HCl] 100 mg PO QPM PRN 03/08/16 [History] Propranolol HCl [Inderal LA] 60 mg PO DAILY 03/19/17 [History] Ibuprofen 800 mg PO TID 10/25/18 [History] Losartan [Cozaar] 25 mg PO DAILY 10/09/19 [History] Cyclobenzaprine [Flexeril] 10 mg PO BEDTIME PRN 01/22/20 [History] Past Medical History HEENT History: Reports: Impaired Vision Other HEENT History: "Deviated septum showed on CT " Cardiovascular History: Reports: Hypertension Other Cardiovascular History: Took steroid for heart inflammation and fluid Respiratory History: Reports: Bronchitis, Recurrent, SOB Gastrointestinal History: Reports: Chronic Constipation, Chronic Diarrhea, GERD Other Gastrointestinal History: chronic abdominal pain 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 , , Other (See Below) 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 IPHONE DEVELOPER History: two etopic pregnancies Musculoskeletal History: Reports: Back Pain, Chronic, Fracture, Other (See Below ) Other Musculoskeletal History: Tendonitis Neurological History: Reports: Concussion, Headaches, Chronic, Migraines Psychiatric History: Reports: Anxiety, Bipolar, Depression, Mood Swings, Panic Attack Hematologic History: Reports: Anemia Immunologic History: Reports: Other (See Below) Other Immunologic History: pt states she was told she has a weak immune system, but doesnt know why Oncologic (Cancer) History: Reports: Breast Dermatologic History: Reports: Other (See Below) Other Dermatologic History: boils - unknown etiology - Infectious Disease History Infectious Disease History: Reports: Chicken Pox - Past Surgical History Neurological Surgical History: Reports: Other (See Below) Other Neurological Surgeries/Procedures: nerve release in back. some nerve damage. Musculoskeletal Surgical History: Reports: None, Other (See Below) Other Musculoskeletal Surgeries/Procedures:: numerous back surgeries, last one 08/08 Oncologic Surgical History: Reports: Lumpectomy Other Oncologic Surgeries/Procedures: right breast lumpectomy -benign Social & Family History - Family History Family Medical History: Noncontributory Psychiatric: Reports: Anxiety, Bipolar, Depression - Tobacco Use Smoking Status *Q: Current Every Day Smoker Years of Tobacco use: 27 Packs/Tins Daily: 1 Used Tobacco, but Quit: No Second Hand Smoke Exposure: Yes - Caffeine Use Caffeine Use: Reports: Coffee, Soda - Alcohol Use Days Per Week of Alcohol Use: 1 Number of Drinks Per Day: 2 Total Drinks Per Week: 2 - Recreational Drug Use Recreational Drug Use: No - Living Situation & Occupation Living situation: Reports: Single ED ROS GENERAL - Review of Systems Review Of Systems: Comprehensive ROS is negative, except as noted in HPI. ED EXAM, GENERAL - Physical Exam Exam: See Below Exam Limited By: No Limitations General Appearance: Alert, WD/WN, No Apparent Distress, Anxious Eye Exam: Bilateral Eye: EOMI, Normal Inspection, PERRL Ears: Normal External Exam, Normal Canal, Hearing Grossly Normal, Normal TMs Nose: Normal Inspection, Normal Mucosa, No Blood Throat/Mouth: Normal Inspection, Normal Lips, Normal Oropharynx, Normal Voice, No Airway Compromise Head: Atraumatic, Normocephalic Neck: Normal Inspection, Supple, Non-Tender, Full Range of Motion Respiratory/Chest: No Respiratory Distress, Lungs Clear, Normal Breath Sounds, Chest Non-Tender Cardiovascular: Regular Rate, Rhythm, No Gallop, No Murmur, No Rub GI/Abdominal: Normal Bowel Sounds, Soft, Non-Tender, No Distention, No Mass Extremities: Normal Inspection, Normal Range of Motion, No Pedal Edema, Normal Capillary Refill Neurological: Alert, Oriented, CN II-XII Intact, Normal Cognition, Normal Gait, No Motor/Sensory Deficits Psychiatric: Anxious Skin Exam: Warm, Dry Lymphatic: No Adenopathy Course - Vital Signs Text/Narrative:: Explained to the patient and her significant other that at this point her symptoms seem nonspecific, but almost are certainly related to some sort of respiratory viral illness until proven otherwise. We did check some basic labs , and provided her with a fluid bolus and she felt significantly better. As she had mentioned some potential dizziness, I had ordered some meclizine for her , but I am honestly not even sure that she received it, because she felt better right away and was requesting discharge. I was able to review her diagnostic testing at the bedside with her RN and discussed management of her subacute cough. I explained that certainly could be a post viral syndrome as sometimes we see an ongoing cough that takes several weeks to extinguish. I explained that we would be happy to see her in the clinic to discuss this further, but she does not have any apparent emergent medical concern and appeared to be safe to manage as an outpatient. Discussed potentially trying some cough syrup to help suppress her cough at night and/or some cough lozenges to help ensure that she gets some rest. Otherwise asked her to follow her symptoms to resolution and to follow-up with her doctor with any ongoing issues. In regard to her elevated type B natruretic peptide, we did set her up for an echocardiogram in the near future which hopefully will offer sufficient images to help rule out any issues in this regard, but her cough certainly does not appear to be related to pulmonary edema at this time, in fact if anything she seemed volume depleted and had such rapid improvement that, in hindsight, her thorough work- up almost seemed like overkill, however in discussing diagnostic options she was certainly in favor of checking her labs electrolytes and imaging of her head and this seemed reasonable and reassuring for her. She was discharged in good condition with instructions to return with any persistent working worsening or new concerns as they arise. Last Recorded V/S: Last Vital Signs Temp 98.6 F 01/22/20 12:58 Pulse 88 01/22/20 12:58 Resp 20 01/22/20 12:58 BP 147/101 H 01/22/20 12:58 Pulse Ox 93 L 01/22/20 12:58 - Orders/Labs/Meds Orders: Active Orders 24 hr Category Date Time Status EKG Documentation Completion [RC] ASDIRECTED Care 01/22/20 13:16 Active Labs: Laboratory Tests 01/22/20 01/22/20 01/22/20 Range/Units 13:15 13:15 13:15 WBC (4.0-11.0) K/uL RBC (3.80-5.80) M/uL Hgb (11.5-16.5) g/dL Hct (37.0-47.0) % MCV (76-96) fL MCH (27.0-32.0) pg MCHC (31.0-35.0) g/dL RDW (11.0-16.0) % Plt Count (150-500) K/uL MPV (6.0-10.0) fL Neut % (Auto) (45.0-70.0) % Lymph % (Auto) (20.0-40.0) % Douglas % (Auto) (3.0-10.0) % Eos % (Auto) (1.0-5.0) % Baso % (Auto) (0.0-0.5) % Neut # (Auto) (2.00-7.50) K/uL Lymph # (Auto) (1.50-4.00) K/uL Douglas # (Auto) (0.20-0.80) K/uL Eos # (Auto) (0.04-0.40) K/uL Baso # (Auto) (0.02-0.10) K/uL Sodium 140 (136-145) mmol/L Potassium 3.8 D (3.5-5.1) mmol/L Chloride 104 (98-107) mmol/L Carbon Dioxide 27.2 (21.0-32.0) mmol/L Anion Gap 12.6 (5.0-15.0) mmol/L BUN 13 D (8-26) mg/dL Creatinine 0.57 D (0.55-1.02) mg/dL Est Cr Clr Drug Dosing 113.29 mL/min Estimated GFR (MDRD) > 60 (>60) MLS/MIN BUN/Creatinine Ratio 22.8 (6-25) Glucose 78 (74-100) mg/dL Calcium 8.5 (8.5-10.1) mg/dL Magnesium 1.7 L (1.8-2.4) mg/dL Total Bilirubin 0.4 D (0.0-1.0) mg/dL AST 16 (15-37) U/L ALT 32 (12-78) U/L Alkaline Phosphatase 84 (46-116) U/L Troponin I < 0.017 (0.000-0.060) ng/mL Total Protein 6.8 (6.4-8.2) g/dL Albumin 2.9 L (3.4-5.0) g/dL Globulin 3.9 (2.2-4.2) g/dL Albumin/Globulin Ratio 0.7 L (0.8-2.0) TSH, Ultra Sensitive 1.823 (0.358-3.740) uIU/mL Urine Color Urine Appearance (CLEAR) Urine pH (5.0-8.0) Ur Specific Union (1.003-1.030) Urine Protein (NEGATIVE) mg/dL Urine Glucose (UA) (NEGATIVE) mg/dL Urine Ketones (NEGATIVE) mg/dL Urine Occult Blood (NEGATIVE) Urine Nitrite (NEGATIVE) Urine Bilirubin (NEGATIVE) Urine Urobilinogen (0.2-1.0) E.U./dL Ur Leukocyte Esterase (NEGATIVE) Urine HCG, Qual (NEGATIVE) 01/22/20 01/22/20 01/22/20 Range/Units 13:30 13:30 13:36 WBC 8.5 D (4.0-11.0) K/uL RBC 4.16 (3.80-5.80) M/uL Hgb 12.5 (11.5-16.5) g/dL Hct 37.4 (37.0-47.0) % MCV 90 (76-96) fL MCH 30.0 (27.0-32.0) pg MCHC 33.4 (31.0-35.0) g/dL RDW 14.9 (11.0-16.0) % Plt Count 233 (150-500) K/uL MPV 10.1 H (6.0-10.0) fL Neut % (Auto) 58.0 (45.0-70.0) % Lymph % (Auto) 30.1 (20.0-40.0) % Douglas % (Auto) 10.9 H (3.0-10.0) % Eos % (Auto) 0.8 L (1.0-5.0) % Baso % (Auto) 0.2 (0.0-0.5) % Neut # (Auto) 4.92 (2.00-7.50) K/uL Lymph # (Auto) 2.56 (1.50-4.00) K/uL Douglas # (Auto) 0.93 H (0.20-0.80) K/uL Eos # (Auto) 0.07 (0.04-0.40) K/uL Baso # (Auto) 0.02 (0.02-0.10) K/uL Sodium (136-145) mmol/L Potassium (3.5-5.1) mmol/L Chloride (98-107) mmol/L Carbon Dioxide (21.0-32.0) mmol/L Anion Gap (5.0-15.0) mmol/L BUN (8-26) mg/dL Creatinine (0.55-1.02) mg/dL Est Cr Clr Drug Dosing mL/min Estimated GFR (MDRD) (>60) MLS/MIN BUN/Creatinine Ratio (6-25) Glucose (74-100) mg/dL Calcium (8.5-10.1) mg/dL Magnesium (1.8-2.4) mg/dL Total Bilirubin (0.0-1.0) mg/dL AST (15-37) U/L ALT (12-78) U/L Alkaline Phosphatase (46-116) U/L Troponin I (0.000-0.060) ng/mL Total Protein (6.4-8.2) g/dL Albumin (3.4-5.0) g/dL Globulin (2.2-4.2) g/dL Albumin/Globulin Ratio (0.8-2.0) TSH, Ultra Sensitive (0.358-3.740) uIU/mL Urine Color Yellow Urine Appearance Clear (CLEAR) Urine pH 6.0 (5.0-8.0) Ur Specific Union 1.010 (1.003-1.030) Urine Protein Negative (NEGATIVE) mg/dL Urine Glucose (UA) Negative (NEGATIVE) mg/dL Urine Ketones Negative (NEGATIVE) mg/dL Urine Occult Blood Negative (NEGATIVE) Urine Nitrite Negative (NEGATIVE) Urine Bilirubin Negative (NEGATIVE) Urine Urobilinogen 0.2 (0.2-1.0) E.U./dL Ur Leukocyte Esterase Negative (NEGATIVE) Urine HCG, Qual Negative (NEGATIVE) Meds: Medications Discontinued Medications Generic Name Dose Route Start Last Admin Trade Name Ishaanq PRN Reason Stop Dose Admin Sodium Chloride 1,000 mls @ 999 mls/hr 01/22/20 13:13 01/22/20 13:10 Normal Saline IV 01/22/20 14:13 999 mls/hr .BOLUS ONE Administration Meclizine HCl 12.5 mg 01/22/20 13:19 01/22/20 13:24 Antivert PO 01/22/20 13:20 12.5 mg ONETIME ONE Administration Meclizine HCl Confirm 01/22/20 13:31 01/22/20 13:29 Antivert Administered 01/22/20 13:32 Not Given Dose 25 mg .ROUTE .STK-MED ONE Departure - Departure Time of Disposition: 15:00 Disposition: Home, Self-Care 01 Clinical Impression: Dehydration - Discharge Information Instructions: Bronchospasm, Adult, Ibuprofen tablets and capsules, Acute Bronchitis, Adult, [id number] Referrals: PCP,None [Primary Care Provider] - Forms: ED Department Discharge Additional Instructions: Take Ibuprofen as needed Take OTC cough syrup as needed Call the Hospital if fever or symptom worsen [phone] Sepsis Event Note - Evaluation Sepsis Screening Result: No Definite Risk - Focused Exam Vital Signs: Vital Signs Temp Pulse Resp BP Pulse Ox 01/22/20 12:58 98.6 F 88 20 147/101 H 93 L Date Exam was Performed: 01/22/20 Time Exam was Performed: 20:20 - My Orders Last 24 Hours: My Active Orders 01/22/20 13:16 EKG Documentation Completion [RC] ASDIRECTED - Assessment/Plan Last 24 Hours: My Active Orders 01/22/20 13:16 EKG Documentation Completion [RC] ASDIRECTED
== END 2020-01-22 15:15 | disposition home or self-care (01) ==
LOC: LB.ED 12:28
DX: E86.0 Dehydration (principal); I10 Essential (primary) hypertension; K21.9 Gastro-esophageal reflux disease without esophagitis; F41.0 Panic disorder [episodic paroxysmal anxiety]; F32.9 Major depressive disorder, single episode, unspecified; F17.210 Nicotine dependence, cigarettes, uncomplicated; Z88.0 Allergy status to penicillin; Z91.048 Other nonmedicinal substance allergy status; Z88.1 Allergy status to other antibiotic agents; Z79.899 Other long term (current) drug therapy
CPT/HCPCS: 36415; 70450; 80053; 81003; 81025; 83735; 84443; 84484; 85025; 87804; 93005; 96360; 99284; A9270; J7030

== ENCOUNTER 2020-02-29 05:45 | Emergency (ER) | payer MEDICAID ==
[2020-02-29 05:52] VITALS: BP 166/103; PULSE 88
[2020-02-29] MEDS ORDERED: Phenazopyridine 100 MG Tab ONE (06:00)
[2020-02-29] MEDS ORDERED: HYDROmorphone 2 MG/ML Syringe SUBCUT ONE (06:12)
[2020-02-29] MEDS ORDERED: Ketorolac 60 MG/2 ML SDV IM ONE (07:10)
--- NOTE | 2020-02-29 08:03 | ER ---
HISTORY OF PRESENT ILLNESS: A 39-year-old lady, who comes in with her significant other with complaints of abdominal pain that started yesterday. She states that it seems to be in the mid back area on the right side and it radiates around to the groin. The patient states that it started out being mild in nature and now it is very severe and she will get these stabbing pains that are terrible for her. She tells me that she feels like she has to pee all the time and she is peeing small amounts. She has not noticed any blood in her urine. She has not had any problems with nausea or vomiting. She tells me if she actually puts pressure on her lower abdomen, it seems to feel better. The patient did take ibuprofen earlier in the night. She has not taken anything else for pain control. She has had normal bowel movements lately. OBJECTIVE: GENERAL APPEARANCE: The patient is awake and alert. She is obviously uncomfortable and holding her right flank and alternating it seems with putting a light pressure on her lower abdomen. VITAL SIGNS: Reviewed. She is afebrile. Blood pressure 166/103, pulse 88, O2 sats are good. LUNGS: Clear. There is minimal CVA tenderness on the right side with percussion. ABDOMEN: The patient has diffuse pain of the abdomen with palpation, but more so in the lower quadrants and over the central lower abdomen. Bowel sounds are present. SKIN: Warm and dry. LAB AND X-RAY: CT of the abdomen and pelvis was obtained, which is normal. Negative for renal stones or hydronephrosis. There are no abnormal findings. Labs include a CBC showing a white count that is just slightly elevated at 11.9, neutrophils are normal. Comprehensive metabolic panel is normal. Kidney function is good and UA is normal. DIAGNOSIS: Flank pain with dysuria with a normal workup. TREATMENT PLAN: The patient was given Dilaudid 2 mg subcu while waiting for test results. This seems to help, but she states that she still has this sharp stabbing pain every few minutes, pointing to the right flank area. At this point, I will give the patient Toradol 60 mg IM and we will send her home with Pyridium, she is to take 1 tablet t.i.d. She is to increase her liquid intake using small frequent drinks and apply heat to the right flank area as needed. Activity should be minimal until her symptoms improve. Recheck should be within 24 hours if her condition does not get better. CRS/MODL /[id number]
--- NOTE | 2020-02-29 09:11 | CT ---
Date of Service: 02/29/2020 Clinical Data: Abd pain UNENHANCED ABDOMEN AND PELVIC CT: Multislice acquisition through the abdomen and pelvis without IV or oral contrast was performed. Comparison is made to a prior exam dated 10/08/2018. The lung bases are clear. The heart size is normal. The liver is normal size. There are multiple low-density lesions in both the right and left lobes. These were present on the prior exam and are essentially unchanged consistent with benign hepatic cysts. No new hepatic lesions. The gallbladder appears normal. No calcified gallstones. No pericholecystic fluid. The spleen appears normal. There is a 9 mm nodule medial to the spleen consistent with an accessory spleen. The pancreas appears normal. The right and left adrenals appear normal. There are numerous low-density lesions in both kidneys consistent with bilateral renal cysts. These are essentially unchanged from the prior study. Findings are consistent with polycystic kidney disease. No hydronephrosis or hydroureter. No nephrocalcinosis or nephrolithiasis. The uterus appears normal. There are septated low-density lesions in both ovaries. There are probably ovarian cysts, however the possibility of cystic ovarian neoplasm should be considered. Followup ultrasound is recommended. The appendix is not dilated. No evidence of appendicitis. There is mild diverticulosis of the descending and sigmoid colon. No evidence of diverticulitis. No free air. No free fluid. No dilated loops of bowel. No adenopathy. No aortic aneurysm or dissection. [id number] [facility]
== END 2020-02-29 07:25 | disposition home or self-care (01) ==
LOC: LB.ED 05:45
DX: R10.30 Lower abdominal pain, unspecified (principal); R30.0 Dysuria
CPT/HCPCS: 36415; 74176; 80053; 81001; 85025; 96372; 99283; 99284-25; A9270-GY; J1170; J1885

== ENCOUNTER 2020-03-29 19:35 | Emergency (ER) | payer MEDICAID ==
[2020-03-29] MEDS: Naloxone 2 MG/2 ML Syringe ONE (19:57)
[2020-03-29] MEDS ORDERED: Sodium Chloride 0.9% 1,000 ML IV ONE (19:57)
[2020-03-29] MEDS ORDERED: Naloxone 2 MG/2 ML Syringe ONE (20:12)
[2020-03-29 21:59] VITALS: BP 168/84; PULSE 84
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
--- NOTE | 2020-03-31 11:18 | CT ---
DATE OF SERVICE: 03/29/20 CLINICAL DATA: [facility] UNENHANCED BRAIN CT: Multi slice axial acquisition was performed. Comparison is made to a prior exam dated 01/22/20. No masses or mass effect. No intracranial hemorrhage. No evidence of acute or subacute infarct. No osseous abnormalities. IMPRESSION: No acute intracranial abnormalities. [id number] [facility]
== END 2020-03-29 22:19 | disposition home or self-care (01) ==
LOC: EEVIPCON 19:35 → LB.ED 19:35
DX: F10.129 Alcohol abuse with intoxication, unspecified (principal); F12.90 Cannabis use, unspecified, uncomplicated; I10 Essential (primary) hypertension; K21.9 Gastro-esophageal reflux disease without esophagitis; F31.9 Bipolar disorder, unspecified; Z79.899 Other long term (current) drug therapy; Z88.0 Allergy status to penicillin; Z88.1 Allergy status to other antibiotic agents; Z91.048 Other nonmedicinal substance allergy status
CPT/HCPCS: 36415; 70450; 80053; 80307; 82962; 85025; 93005; 96361; 96374; 99285; 99285-25; A0425; A0429; J2310; J7030

== ENCOUNTER 2020-04-09 15:51 | Emergency (ER) | payer MEDICAID ==
[2020-04-09 16:00] VITALS: BP 162/113; PULSE 94
--- NOTE | 2020-04-09 16:42 | EDM.PDOC ---
ED HPI GENERAL MEDICAL PROBLEM - General Chief Complaint: General Stated Complaint: CHEST PAIN Time Seen by Provider: 04/09/20 16:00 Source of Information: Reports: Patient History Limitations: Reports: No Limitations - History of Present Illness INITIAL COMMENTS - FREE TEXT/NARRATIVE: This patient presents to the ED for evaluation of chest pain. She states she has had a cough for the past 8 months and was seen most recently in the ED for the same on 01/22/2020. She states that today she had "shaking" and felt dizzy with a headache and that is why she decided to come in. She also admits to feeling a bit anxious. She believes there is something wrong with her heart too. She was supposed to have an ECHO for her heart but it was recently cancelled due to COVID. She is also concerned that she has COVID; however, her cough has not changed, she has not had a fever, and denies difficulty breathing. She states she vomited once today and had one episode of diarrhea. She states she has continued to take her medication as prescribed. Onset: Today Duration: Getting Worse Location: Reports: Chest, Generalized Quality: Reports: Same as Previous Episode Severity: Severe Improves with: Reports: None Worsens with: Reports: None Context: Reports: Activity Associated Symptoms: Reports: Cough, Headaches. Denies: Diaphoresis, Fever/ Chills, Nausea/Vomiting, Shortness of Breath, Syncope, Weakness Generalized Pain Score (Numeric/FACES): 8 - Related Data Allergies Allergy/AdvReac Type Severity Reaction Status Date / Time ampicillin Allergy Anaphylactic Verified 02/29/20 06:20 Shock Penicillins Allergy Yeast Verified 02/29/20 06:20 Infections plastic adhesive tape Allergy Blisters Uncoded 02/29/20 06:20 Home Meds: Home Meds Albuterol [Proair HFA] 1 - 2 puff INH Q6HR PRN 03/08/16 [History] Desvenlafaxine [Pristiq] 100 mg PO DAILY 03/08/16 [History] Gabapentin 900 mg PO TID 03/08/16 [History] lamoTRIgine [Lamotrigine] 100 mg PO DAILY 03/08/16 [History] traZODone HCl [Trazodone HCl] 100 mg PO QPM PRN 03/08/16 [History] Propranolol HCl [Inderal LA] 60 mg PO DAILY 03/19/17 [History] Ibuprofen 800 mg PO TID 10/25/18 [History] Losartan [Cozaar] 25 mg PO DAILY 10/09/19 [History] Cyclobenzaprine [Flexeril] 10 mg PO BEDTIME PRN 01/22/20 [History] Omeprazole Magnesium [Prilosec Otc] 20 mg PO DAILY 02/29/20 [History] Past Medical History HEENT History: Reports: Impaired Vision Other HEENT History: "Deviated septum showed on CT " Cardiovascular History: Reports: Hypertension Other Cardiovascular History: Took steroid for heart inflammation and fluid Respiratory History: Reports: Bronchitis, Recurrent, SOB Gastrointestinal History: Reports: Chronic Constipation, Chronic Diarrhea, GERD Other Gastrointestinal History: chronic abdominal pain GLASS SELECTOR History: Reports: Ectopic , , Other (See Below) Other GLASS SELECTOR History: two etopic pregnancies Musculoskeletal History: Reports: Back Pain, Chronic, Fracture, Other (See Below ) Other Musculoskeletal History: Tendonitis Neurological History: Reports: Concussion, Headaches, Chronic, Migraines Psychiatric History: Reports: Anxiety, Bipolar, Depression, Mood Swings, Panic Attack Hematologic History: Reports: Anemia Immunologic History: Reports: Other (See Below) Other Immunologic History: pt states she was told she has a weak immune system, but doesnt know why Oncologic (Cancer) History: Reports: Breast Dermatologic History: Reports: Other (See Below) Other Dermatologic History: boils - unknown etiology - Infectious Disease History Infectious Disease History: Reports: Chicken Pox - Past Surgical History Neurological Surgical History: Reports: Other (See Below) Other Neurological Surgeries/Procedures: nerve release in back. some nerve damage. Musculoskeletal Surgical History: Reports: None, Other (See Below) Other Musculoskeletal Surgeries/Procedures:: numerous back surgeries, last one 08/08 Oncologic Surgical History: Reports: Lumpectomy Other Oncologic Surgeries/Procedures: right breast lumpectomy -benign Social & Family History - Family History Family Medical History: Noncontributory Psychiatric: Reports: Anxiety, Bipolar, Depression - Tobacco Use Smoking Status *Q: Current Every Day Smoker Years of Tobacco use: 25 Packs/Tins Daily: 1 Used Tobacco, but Quit: No - Caffeine Use Caffeine Use: Reports: Coffee, Soda - Alcohol Use Days Per Week of Alcohol Use: 2 Number of Drinks Per Day: 3 Total Drinks Per Week: 6 - Recreational Drug Use Recreational Drug Use: No - Living Situation & Occupation Living situation: Reports: Single ED ROS GENERAL - Review of Systems Review Of Systems: Comprehensive ROS is negative, except as noted in HPI. ED EXAM, GENERAL - Physical Exam Exam: See Below Exam Limited By: No Limitations General Appearance: Alert, WD/WN, Anxious, Mild Distress Eye Exam: Bilateral Eye: PERRL Ears: Normal External Exam, Hearing Grossly Normal, Normal TMs Nose: Normal Inspection Throat/Mouth: Normal Inspection, Normal Oropharynx, No Airway Compromise Head: Atraumatic, Normocephalic Neck: Normal Inspection, Supple, Non-Tender, Full Range of Motion Respiratory/Chest: No Respiratory Distress, Lungs Clear, Normal Breath Sounds, No Accessory Muscle Use Cardiovascular: Regular Rate, Rhythm Psychiatric: Normal Affect, Normal Mood Skin Exam: Warm, Dry, Intact Course - Vital Signs Last Recorded V/S: Last Vital Signs Temp 36.9 C 04/09/20 15:51 Pulse 94 04/09/20 15:51 Resp 20 04/09/20 15:51 BP 162/113 H 04/09/20 15:51 Pulse Ox 100 04/09/20 15:51 - Orders/Labs/Meds Orders: Active Orders 24 hr Category Date Time Status EKG Documentation Completion [RC] ASDIRECTED Care 04/09/20 15:56 Active Chest 2V [CR] Stat Exams 04/09/20 15:56 Taken EKG 12 Lead [EK] Routine Ther 04/09/20 15:56 Ordered - Re-Assessments/Exams Free Text/Narrative Re-Assessment/Exam: 04/09/20 16:43 This patient presents with chest pain. The work up in the ED is thus far negative including a CXR without acute findings and an EKG with NSR. The differential diagnosis of chest pain is broad and includes life threatening etiologies such as acute coronary syndrome, myocardial infarction, pulmonary embolism, acute aortic dissection, amongst others. Other causes may include pneumonia, pneumothorax, chest wall source, pericarditis, pleurisy, esophageal spasm, etc. No serious etiology for the chest pain were detected today during this visit. I believe her cough may be related to her significant smoking history (at least one pack per day "for years). Close follow up with primary care is indicated should the pain continue, as further work up may be performed ; this was made clear to the patient, who understands. She will be scheduled for ECHO and other diagnostics thought the clinic. She did express a desire to stop smoking and requested a prescription for Chantix. She states she discussed this with Dr. Moses in the past but did not feel ready to try it "but is now ready." I did discuss the side effects of this medication with the patient who stated she understood. Departure - Departure Time of Disposition: 16:35 Disposition: Home, Self-Care 01 Condition: Good Clinical Impression: Chest pain - Discharge Information *PRESCRIPTION DRUG MONITORING PROGRAM REVIEWED*: No Instructions: Steps to Quit Smoking, [id number], Nonspecific Chest Pain, Adult Referrals: PCP,None [Primary Care Provider] - Forms: ED Department Discharge Additional Instructions: Work on quitting smoking. Follow up in clinic with regular provider as needed. You will be contacted for scheduling Echocardiogram that was previously cancelled. Continue all previously prescribed medications. Call with any questions. Sepsis Event Note - Evaluation Sepsis Screening Result: No Definite Risk - Focused Exam Vital Signs: Vital Signs Temp Pulse Resp BP Pulse Ox 04/09/20 15:51 36.9 C 94 20 162/113 H 100 Date Exam was Performed: 04/09/20 Time Exam was Performed: 16:37 - My Orders Last 24 Hours: My Active Orders 04/09/20 15:56 EKG Documentation Completion [RC] ASDIRECTED Chest 2V [CR] Stat EKG 12 Lead [EK] Routine - Assessment/Plan Last 24 Hours: My Active Orders 04/09/20 15:56 EKG Documentation Completion [RC] ASDIRECTED Chest 2V [CR] Stat EKG 12 Lead [EK] Routine
--- NOTE | 2020-04-10 07:29 | CR ---
DATE OF SERVICE: 04/09/20 CLINICAL DATA: cough for 8 months PA AND LATERAL CHEST: Comparison is made to a prior exam dated 02/21/20. The heart and lungs are stable. No evidence of acute intrathoracic disease. [id number] [facility]
== END 2020-04-09 16:35 | disposition home or self-care (01) ==
LOC: LB.ED 15:51
DX: R07.9 Chest pain, unspecified (principal); I10 Essential (primary) hypertension; K21.9 Gastro-esophageal reflux disease without esophagitis; F41.9 Anxiety disorder, unspecified; F32.9 Major depressive disorder, single episode, unspecified; F17.210 Nicotine dependence, cigarettes, uncomplicated; Z88.0 Allergy status to penicillin; Z88.1 Allergy status to other antibiotic agents; Z91.048 Other nonmedicinal substance allergy status; Z79.899 Other long term (current) drug therapy
CPT/HCPCS: 71046; 99284; 99285-25

== ENCOUNTER 2020-04-10 06:59 | Emergency (ER) | payer MEDICAID ==
[2020-04-10] MEDS ORDERED: Ibuprofen 800 MG Tab PO ONE (07:19)
[2020-04-10] MEDS ORDERED: Ibuprofen 800 MG Tab ONE (07:30)
[2020-04-10 08:19] VITALS: BP 181/92; PULSE 83
--- NOTE | 2020-04-10 08:45 | EDM.PDOC ---
ED HPI GENERAL MEDICAL PROBLEM - General Chief Complaint: ENT Problem Stated Complaint: PAIN Time Seen by Provider: 04/10/20 07:20 Source of Information: Reports: Patient History Limitations: Reports: No Limitations - History of Present Illness INITIAL COMMENTS - FREE TEXT/NARRATIVE: This patient presents to the ED for evaluation of neck swelling. She states she woke up and noticed that her neck was swollen on the right side. She denies a sore throat. She tells the nurses that she is having no pain and me that her pain is 10/10. She has not tried anything to management this at all. She denies difficulty swallowing or breathing. I did see her less than 24 hours ago for chest pain that was benign and this swelling was not present at that time; this patient is a frequent visitor to the ED. She denies fever, nausea, vomiting, diarrhea. She continues to cough and has had a cough for the past 8 months. She is a heavy smoker as well and does use alcohol regularly. Onset: Today Right Neck Pain Score (Numeric/FACES): 10 - Related Data Allergies Allergy/AdvReac Type Severity Reaction Status Date / Time ampicillin Allergy Anaphylactic Verified 04/09/20 16:39 Shock Penicillins Allergy Yeast Verified 04/09/20 16:39 Infections plastic adhesive tape Allergy Blisters Uncoded 04/09/20 16:39 Home Meds: Home Meds Albuterol [Proair HFA] 1 - 2 puff INH Q6HR PRN 03/08/16 [History] Desvenlafaxine [Pristiq] 100 mg PO DAILY 03/08/16 [History] Gabapentin 900 mg PO TID 03/08/16 [History] lamoTRIgine [Lamotrigine] 100 mg PO DAILY 03/08/16 [History] traZODone HCl [Trazodone HCl] 100 mg PO QPM PRN 03/08/16 [History] Propranolol HCl [Inderal LA] 60 mg PO DAILY 03/19/17 [History] Ibuprofen 800 mg PO TID 10/25/18 [History] Losartan [Cozaar] 25 mg PO DAILY 10/09/19 [History] Cyclobenzaprine [Flexeril] 10 mg PO BEDTIME PRN 01/22/20 [History] Omeprazole Magnesium [Prilosec Otc] 20 mg PO DAILY 02/29/20 [History] Past Medical History HEENT History: Reports: Impaired Vision Other HEENT History: "Deviated septum showed on CT " Cardiovascular History: Reports: Hypertension Other Cardiovascular History: Took steroid for heart inflammation and fluid Respiratory History: Reports: Bronchitis, Recurrent, SOB Gastrointestinal History: Reports: Chronic Constipation, Chronic Diarrhea, GERD Other Gastrointestinal History: chronic abdominal pain 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 , , Other (See Below) 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 STAGE DRIVER History: two etopic pregnancies Musculoskeletal History: Reports: Back Pain, Chronic, Fracture, Other (See Below ) Other Musculoskeletal History: Tendonitis Neurological History: Reports: Concussion, Headaches, Chronic, Migraines Psychiatric History: Reports: Anxiety, Bipolar, Depression, Mood Swings, Panic Attack Hematologic History: Reports: Anemia Immunologic History: Reports: Other (See Below) Other Immunologic History: pt states she was told she has a weak immune system, but doesnt know why Oncologic (Cancer) History: Reports: Breast Dermatologic History: Reports: Other (See Below) Other Dermatologic History: boils - unknown etiology - Infectious Disease History Infectious Disease History: Reports: Chicken Pox - Past Surgical History Neurological Surgical History: Reports: Other (See Below) Other Neurological Surgeries/Procedures: nerve release in back. some nerve damage. Musculoskeletal Surgical History: Reports: None, Other (See Below) Other Musculoskeletal Surgeries/Procedures:: numerous back surgeries, last one 08/08 Oncologic Surgical History: Reports: Lumpectomy Other Oncologic Surgeries/Procedures: right breast lumpectomy -benign Social & Family History - Family History Family Medical History: Noncontributory Psychiatric: Reports: Anxiety, Bipolar, Depression - Tobacco Use Smoking Status *Q: Current Some Day Smoker Years of Tobacco use: 20 Packs/Tins Daily: 1 Used Tobacco, but Quit: No - Caffeine Use Caffeine Use: Reports: Soda - Recreational Drug Use Recreational Drug Use: No - Living Situation & Occupation Living situation: Reports: Single ED ROS ENT - Review of Systems Review Of Systems: Comprehensive ROS is negative, except as noted in HPI. ED EXAM, ENT - Physical Exam Exam: See Below Exam Limited By: No Limitations General Appearance: Alert, Anxious, Severe Distress, Obese Eye Exam: Bilateral Eye: PERRL Ears: Normal External Exam Nose: Normal Inspection Mouth/Throat: Normal Inspection, Normal Oropharynx. No: Pharyngeal Erythema, Throat Swelling, Tonsillar Erythema, Tonsillar Exudates, Tonsillar Swelling, Uvular Deviation, Uvular Edema Head: Atraumatic, Normocephalic Neck: Normal Inspection, Supple, Non-Tender, Full Range of Motion, Other (right neck: moderate swelling, tenderness with palpation) Respiratory/Chest: No Respiratory Distress, Lungs Clear, Normal Breath Sounds, No Accessory Muscle Use Cardiovascular: Regular Rate, Rhythm Neurological: Alert, Oriented Skin: Warm, Dry, Intact Course - Vital Signs Last Recorded V/S: Last Vital Signs Temp 37.3 C 04/10/20 08:18 Pulse 83 04/10/20 08:18 Resp 18 04/10/20 07:08 BP 181/92 H 04/10/20 08:18 Pulse Ox 97 04/10/20 07:08 - Orders/Labs/Meds Orders: Active Orders 24 hr Category Date Time Status Soft Tissue Neck wo Cont [CT] Stat Exams 04/10/20 07:20 Ordered Meds: Medications Discontinued Medications Generic Name Dose Route Start Last Admin Trade Name Freq PRN Reason Stop Dose Admin Ibuprofen 800 mg 04/10/20 07:19 04/10/20 07:22 Motrin PO 04/10/20 07:20 800 mg ONETIME ONE Administration Ibuprofen Confirm 04/10/20 07:30 Motrin Administered 04/10/20 07:31 Dose 800 mg .ROUTE .STK-MED ONE - Re-Assessments/Exams Free Text/Narrative Re-Assessment/Exam: 04/10/20 08:47 This patient presents for evaluation of neck swelling. Clinical examination is consistent with an adenitis. CT evaluation identifies a right parotid sialoadenitis. There is no evidence of cervical radiculopathy, ligamentous instability, myelopathy, dissection, spinal tumor or abscess at this time. She has no difficulty breathing or swallowing. I discussed worrisome symptoms/signs , if they were to evolve, that should prompt the patient to follow up more quickly or return to the ED. There are no red flag symptoms to suggest we need further workup or advanced imaging at this point. Their head to toe exam is otherwise benign and reassuring. Supportive outpatient management is indicated. Departure - Departure Time of Disposition: 08:30 Disposition: Home, Self-Care 01 Condition: Good Clinical Impression: Sialadenitis - Discharge Information *PRESCRIPTION DRUG MONITORING PROGRAM REVIEWED*: No Referrals: PCP,None [Primary Care Provider] - Forms: ED Department Discharge Care Plan Goals: Ibuprofen every eight hours as needed . My use Tylenol for discomfort alternating with ibuprofen. drink plenty of fluids and use hard sour candies. Sepsis Event Note - Evaluation Sepsis Screening Result: No Definite Risk - Focused Exam Vital Signs: Vital Signs Temp Pulse Resp BP Pulse Ox 04/10/20 08:18 37.3 C 83 181/92 H 04/10/20 07:08 37.3 C 99 18 97 Date Exam was Performed: 04/10/20 Time Exam was Performed: 08:27 - My Orders Last 24 Hours: My Active Orders 04/10/20 07:20 Soft Tissue Neck wo Cont [CT] Stat - Assessment/Plan Last 24 Hours: My Active Orders 04/10/20 07:20 Soft Tissue Neck wo Cont [CT] Stat
== END 2020-04-10 08:25 | disposition home or self-care (01) ==
LOC: LB.ED 06:59
DX: K11.20 Sialoadenitis, unspecified (principal); I10 Essential (primary) hypertension; K21.9 Gastro-esophageal reflux disease without esophagitis; F31.9 Bipolar disorder, unspecified; F41.9 Anxiety disorder, unspecified; F17.210 Nicotine dependence, cigarettes, uncomplicated; Z88.1 Allergy status to other antibiotic agents; Z88.0 Allergy status to penicillin; Z91.048 Other nonmedicinal substance allergy status; Z79.899 Other long term (current) drug therapy
CPT/HCPCS: 70490; 99282; 99283; A9270-GY

== ENCOUNTER 2020-08-01 13:26 | Emergency (ER) | payer MEDICAID, OTHER ==
[2020-08-01 16:44] VITALS: BP 151/79; PULSE 78
--- NOTE | 2020-08-01 17:12 | EDM.PDOC ---
ED HPI GENERAL MEDICAL PROBLEM - General Chief Complaint: General Stated Complaint: EAR PAIN, SORE THROAT Time Seen by Provider: 08/01/20 16:45 Source of Information: Reports: Patient History Limitations: Reports: No Limitations - History of Present Illness INITIAL COMMENTS - FREE TEXT/NARRATIVE: patient with continued cough (was on antibiotics in 01/2020) cough has persisted. She us unable to sleep well due to the cough keeping her awake. Denies any fever but endorses chills. Cough is productive at times with sore throat. Post nasal drip is present and patient will gag. Has also has had UTI symptoms x 1 month off and on, negative for infection last month. Improves with: Reports: None Worsens with: Reports: None Associated Symptoms: Reports: Fever/Chills, Shortness of Breath Generalized Pain Score (Numeric/FACES): 8 - Related Data Allergies Allergy/AdvReac Type Severity Reaction Status Date / Time ampicillin Allergy Anaphylactic Verified 08/01/20 17:42 Shock Penicillins Allergy Yeast Verified 08/01/20 17:42 Infections plastic adhesive tape Allergy Blisters Uncoded 08/01/20 17:42 Home Meds: Home Meds Albuterol [Proair HFA] 1 - 2 puff INH Q6HR PRN 03/08/16 [History] Desvenlafaxine [Pristiq] 100 mg PO DAILY 03/08/16 [History] Gabapentin 900 mg PO TID 03/08/16 [History] lamoTRIgine [Lamotrigine] 100 mg PO DAILY 03/08/16 [History] traZODone HCl [Trazodone HCl] 100 mg PO QPM PRN 03/08/16 [History] Propranolol HCl [Inderal LA] 60 mg PO DAILY 03/19/17 [History] Ibuprofen 800 mg PO TID 10/25/18 [History] Losartan [Cozaar] 25 mg PO DAILY 10/09/19 [History] Cyclobenzaprine [Flexeril] 10 mg PO BEDTIME PRN 01/22/20 [History] Omeprazole Magnesium [Prilosec Otc] 20 mg PO DAILY 02/29/20 [History] guaiFENesin/Codeine Phosphate [Coditussin AC Liquid] 5 ml PO Q6HR #473 liquid 08/01/20 [Rx] predniSONE [Prednisone] 40 mg PO WITHBREAKFAST #10 tablet 08/01/20 [Rx] Past Medical History HEENT History: Reports: Impaired Vision Other HEENT History: "Deviated septum showed on CT " Cardiovascular History: Reports: Hypertension Other Cardiovascular History: Took steroid for heart inflammation and fluid Respiratory History: Reports: Bronchitis, Recurrent, SOB Gastrointestinal History: Reports: Chronic Constipation, Chronic Diarrhea, GERD Other Gastrointestinal History: chronic abdominal pain 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 , , Other (See Below) 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 BACKREST 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 History: two 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 Musculoskeletal History: Reports: Back Pain, Chronic, Fracture, Other (See Below) Other Musculoskeletal History: Tendonitis Neurological History: Reports: Concussion, Headaches, Chronic, Migraines Psychiatric History: Reports: Anxiety, Bipolar, Depression, Mood Swings, Panic Attack Hematologic History: Reports: Anemia Immunologic History: Reports: Other (See Below) Other Immunologic History: pt states she was told she has a weak immune system, but doesnt know why Oncologic (Cancer) History: Reports: Breast Dermatologic History: Reports: Other (See Below) Other Dermatologic History: boils - unknown etiology - Infectious Disease History Infectious Disease History: Reports: Chicken Pox - Past Surgical History Neurological Surgical History: Reports: Other (See Below) Other Neurological Surgeries/Procedures: nerve release in back. some nerve damage. Musculoskeletal Surgical History: Reports: None, Other (See Below) Other Musculoskeletal Surgeries/Procedures:: numerous back surgeries, last one 08/08 Oncologic Surgical History: Reports: Lumpectomy Other Oncologic Surgeries/Procedures: right breast lumpectomy -benign Social & Family History - Family History Family Medical History: Noncontributory Psychiatric: Reports: Anxiety, Bipolar, Depression - Tobacco Use Smoking Status *Q: Former Smoker Years of Tobacco use: 18 Packs/Tins Daily: 10 Used Tobacco, but Quit: No - Caffeine Use Caffeine Use: Reports: Coffee, Soda, Tea - Recreational Drug Use Recreational Drug Use: No - Living Situation & Occupation Living situation: Reports: Single ED ROS GENERAL - Review of Systems Review Of Systems: See Below Constitutional: Reports: No Symptoms HEENT: Reports: No Symptoms Respiratory: Reports: Cough, Sputum Cardiovascular: Reports: No Symptoms Endocrine: Reports: No Symptoms GI/Abdominal: Reports: No Symptoms, Constipation, Diarrhea (following with GI) : Reports: Dysuria, Frequency. Denies: Flank Pain, Hematuria Musculoskeletal: Reports: No Symptoms Skin: Reports: No Symptoms Neurological: Reports: No Symptoms ED EXAM, GENERAL - Physical Exam Exam: See Below Exam Limited By: No Limitations General Appearance: Alert, No Apparent Distress Eye Exam: Bilateral Eye: PERRL Ears: Normal External Exam, Normal Canal, Hearing Grossly Normal, Normal TMs Ear Exam: Bilateral Ear: TM normal Nose: Normal Inspection Throat/Mouth: Normal Inspection, Normal Lips, Normal Gums, Normal Oropharynx, No Airway Compromise Head: Atraumatic Neck: Non-Tender, Full Range of Motion Respiratory/Chest: No Respiratory Distress, Wheezing (minimal wheezing in bilateral bases) Cardiovascular: Regular Rate, Rhythm, No JVD, No Murmur GI/Abdominal: Normal Bowel Sounds Extremities: Normal Inspection, Normal Capillary Refill Psychiatric: Normal Affect, Normal Mood Skin Exam: Warm, Dry, Intact Lymphatic: Adenopathy (right cervical adenopathy noted) Course - Vital Signs Last Recorded V/S: Last Vital Signs Temp 98.7 F 08/01/20 16:25 Pulse 78 08/01/20 16:25 Resp 16 08/01/20 16:25 BP 151/79 H 08/01/20 16:25 Pulse Ox 100 08/01/20 16:25 - Orders/Labs/Meds Orders: Active Orders 24 hr Category Date Time Status Chest 1V Frontal [CR] Stat Exams 08/01/20 16:59 Taken Labs: Laboratory Tests 08/01/20 08/01/20 Range/Units 13:45 17:14 Urine Color Yellow Urine Appearance Clear (CLEAR) Urine pH 5.5 (5.0-8.0) Ur Specific [place] 1.025 (1.003-1.030) Urine Protein Negative (NEGATIVE) mg/dL Urine Glucose (UA) Negative (NEGATIVE) mg/dL Urine Ketones Negative (NEGATIVE) mg/dL Urine Occult Blood Trace-intact H (NEGATIVE) Urine Nitrite Negative (NEGATIVE) Urine Bilirubin Negative (NEGATIVE) Urine Urobilinogen 0.2 (0.2-1.0) E.U./dL Ur Leukocyte Esterase Negative (NEGATIVE) Urine RBC 0-5 H /HPF Urine WBC Not seen /HPF Ur Squamous Epith Cells Many /HPF COVID-19 (JULIO) Negative Departure - Departure Time of Disposition: 18:10 Disposition: Home, Self-Care 01 Condition: Good Clinical Impression: Bronchitis - Discharge Information *PRESCRIPTION DRUG MONITORING PROGRAM REVIEWED*: Not Applicable *COPY OF PRESCRIPTION DRUG MONITORING REPORT IN PATIENT RIKY: Not Applicable Prescriptions: guaiFENesin/Codeine Phosphate [Coditussin AC Liquid] 5 ml PO Q6HR #473 liquid predniSONE [Prednisone] 40 mg PO WITHBREAKFAST #10 tablet Instructions: Viral Respiratory Infection, [id number], Albuterol; Ipratropium solution for inhalation, Prednisone tablets Referrals: PCP,None [Primary Care Provider] - Forms: ED Department Discharge Additional Instructions: Take albuterol inhaler 1-2 puffs every 4-6 hours Prednisone 40mg every day with breakfast for 5 days Robitussin with codeine as directed Come back or see your regular HCP as needed. Sepsis Event Note (ED) - Evaluation Sepsis Screening Result: No Definite Risk - Focused Exam Vital Signs: Vital Signs Temp Pulse Resp BP Pulse Ox 08/01/20 16:25 98.7 F 78 16 151/79 H 100 - My Orders Last 24 Hours: My Active Orders 08/01/20 16:59 Chest 1V Frontal [CR] Stat - Assessment/Plan Last 24 Hours: My Active Orders 08/01/20 16:59 Chest 1V Frontal [CR] Stat
--- NOTE | 2020-08-02 10:24 | CR ---
DATE OF SERVICE: 08/01/20 CLINICAL DATA: cough, chills continues since 05/2020 AP CHEST: Comparison is made to a prior exam dated 06/20/20. The heart size is normal. The lungs are clear. No pneumothorax. No pleural effusions. No evidence of acute intrathoracic disease. [id number] MTDD
== END 2020-08-01 18:20 | disposition home or self-care (01) ==
LOC: LB.ED 13:26
DX: J40 Bronchitis, not specified as acute or chronic (principal); I10 Essential (primary) hypertension; K21.9 Gastro-esophageal reflux disease without esophagitis; F31.9 Bipolar disorder, unspecified; F41.9 Anxiety disorder, unspecified; Z87.891 Personal history of nicotine dependence; Z88.1 Allergy status to other antibiotic agents; Z88.0 Allergy status to penicillin; Z91.048 Other nonmedicinal substance allergy status; Z79.899 Other long term (current) drug therapy; Z20.828 Contact with and (suspected) exposure to other viral communicable diseases
CPT/HCPCS: 71045; 81001; 99283-25; U0002

== ENCOUNTER 2020-09-15 22:33 | Emergency (ER) | payer MEDICAID ==
[2020-09-15] MEDS ORDERED: Naloxone 2 MG/2 ML Syringe IVPUSH PRN (22:45)
[2020-09-15] MEDS ORDERED: Sodium Chloride 0.9% 1,000 ML IV SCH (23:00)
[2020-09-15] MEDS ORDERED: Prochlorperazine 10 MG in Sodium Chloride 0.9% 50 ML IV ONE (23:12)
--- NOTE | 2020-09-15 23:34 | EDM.PDOC ---
ED HPI GENERAL MEDICAL PROBLEM - General Chief Complaint: General Stated Complaint: UNRESPONSIVE Time Seen by Provider: 09/15/20 22:43 Source of Information: Reports: EMS History Limitations: Reports: Altered Mental Status, Intoxication - History of Present Illness INITIAL COMMENTS - FREE TEXT/NARRATIVE: Patient arrives via EMS. Reported ETOH consumption by caller. Was "unres ponsive" on scene, on arrival patient thrashing on cot, withdraws to painful stimuli, arm drop avoids face. O2 97 RA, RR16, HR 80, airway open without any obstruction. Patient's dentures were removed on assessment. Pupils are equal and reactive, but sluggish. Patient was given 2mg IV narcan on arrival without immediate results. 10 minutes after arrival patient is awake, answering questions, states she drank heavily tonight. She c/o left shoulder pain x 3 days, she attributes this to moving. Denies any drug use. Cath for urine, patient tolerated well. Wakes to voice, states "my heart stops sometimes". Denies SI, HI. Onset: Today Improves with: Reports: None Worsens with: Reports: Movement (left shoulder) Associated Symptoms: Reports: Nausea/Vomiting - Related Data Allergies Allergy/AdvReac Type Severity Reaction Status Date / Time ampicillin Allergy Anaphylactic Verified 08/01/20 17:42 Shock Penicillins Allergy Yeast Verified 08/01/20 17:42 Infections plastic adhesive tape Allergy Blisters Uncoded 08/01/20 17:42 Home Meds: Home Meds Albuterol [Proair HFA] 1 - 2 puff INH Q6HR PRN 03/08/16 [History] Desvenlafaxine [Pristiq] 100 mg PO DAILY 03/08/16 [History] Gabapentin 900 mg PO TID 03/08/16 [History] lamoTRIgine [Lamotrigine] 100 mg PO DAILY 03/08/16 [History] traZODone HCl [Trazodone HCl] 100 mg PO QPM PRN 03/08/16 [History] Propranolol HCl [Inderal LA] 60 mg PO DAILY 03/19/17 [History] Ibuprofen 800 mg PO TID 10/25/18 [History] Losartan [Cozaar] 25 mg PO DAILY 10/09/19 [History] Cyclobenzaprine [Flexeril] 10 mg PO BEDTIME PRN 01/22/20 [History] Omeprazole Magnesium [Prilosec Otc] 20 mg PO DAILY 02/29/20 [History] guaiFENesin/Codeine Phosphate [Coditussin AC Liquid] 5 ml PO Q6HR #473 liquid 08/01/20 [Rx] predniSONE [Prednisone] 40 mg PO WITHBREAKFAST #10 tablet 08/01/20 [Rx] Past Medical History HEENT History: Reports: Impaired Vision Other HEENT History: "Deviated septum showed on CT " Cardiovascular History: Reports: Hypertension Other Cardiovascular History: Took steroid for heart inflammation and fluid Respiratory History: Reports: Bronchitis, Recurrent, SOB Gastrointestinal History: Reports: Chronic Constipation, Chronic Diarrhea, GERD Other Gastrointestinal History: chronic abdominal pain [employer] History: Reports: Ectopic , , Other (See Below) Other [employer] History: two etopic pregnancies Musculoskeletal History: Reports: Back Pain, Chronic, Fracture, Other (See Below) Other Musculoskeletal History: Tendonitis Neurological History: Reports: Concussion, Headaches, Chronic, Migraines Psychiatric History: Reports: Anxiety, Bipolar, Depression, Mood Swings, Panic Attack Hematologic History: Reports: Anemia Immunologic History: Reports: Other (See Below) Other Immunologic History: pt states she was told she has a weak immune system, but doesnt know why Oncologic (Cancer) History: Reports: Breast Dermatologic History: Reports: Other (See Below) Other Dermatologic History: boils - unknown etiology - Infectious Disease History Infectious Disease History: Reports: Chicken Pox - Past Surgical History Neurological Surgical History: Reports: Other (See Below) Other Neurological Surgeries/Procedures: nerve release in back. some nerve damage. Musculoskeletal Surgical History: Reports: None, Other (See Below) Other Musculoskeletal Surgeries/Procedures:: numerous back surgeries, last one 08/08 Oncologic Surgical History: Reports: Lumpectomy Other Oncologic Surgeries/Procedures: right breast lumpectomy -benign Social & Family History - Family History Family Medical History: Noncontributory Psychiatric: Reports: Anxiety, Bipolar, Depression - Caffeine Use Caffeine Use: Reports: Coffee, Soda, Tea - Living Situation & Occupation Living situation: Reports: Single ED ROS GENERAL - Review of Systems Review Of Systems: See Below Constitutional: Reports: No Symptoms (patient verbally denies any fevers) HEENT: Reports: No Symptoms Respiratory: Reports: Cough Cardiovascular: Reports: Chest Pain GI/Abdominal: Reports: No Symptoms, Nausea : Reports: No Symptoms Musculoskeletal: Reports: Arm Pain, Back Pain Skin: Reports: No Symptoms Neurological: Reports: Other (intoxicated) Psychiatric: Denies: Homicidal Ideation, Suicidal Ideation ED EXAM, GENERAL - Physical Exam Exam: See Below Exam Limited By: Altered Mental Status General Appearance: Lethargic Eye Exam: Bilateral Eye: Normal Inspection (sluggish) Ears: Normal External Exam Nose: Normal Inspection Throat/Mouth: Normal Inspection, Normal Lips, Normal Gums, Normal Oropharynx, Normal Voice, No Airway Compromise Head: Atraumatic Neck: Normal Inspection, Non-Tender, Full Range of Motion Respiratory/Chest: No Respiratory Distress, Lungs Clear, Normal Breath Sounds, No Accessory Muscle Use Cardiovascular: Normal Peripheral Pulses, Regular Rate, Rhythm, No Edema, No JVD, No Murmur Peripheral Pulses: 3+: Carotid (L), Carotid (R), Radial (L), Radial (R), Dorsalis Pedis (L), Dorsalis Pedis (R) GI/Abdominal: Normal Bowel Sounds, Soft, Non-Tender (Female) Exam: Normal External Exam Back Exam: Normal Inspection, Full Range of Motion. No: CVA Tenderness (R), CVA Tenderness (L) Extremities: Normal Inspection, Normal Range of Motion, No Pedal Edema, Normal Capillary Refill Neurological: Oriented, Other (intoxicated) Skin Exam: Warm, Dry, Intact Lymphatic: No Adenopathy Course - Vital Signs Last Recorded V/S: Last Vital Signs Temp 98.2 F 09/15/20 23:00 Pulse 82 09/15/20 23:00 Resp 20 09/15/20 23:00 BP 173/88 H 09/15/20 23:00 Pulse Ox 95 09/15/20 23:00 - Orders/Labs/Meds Orders: Active Orders 24 hr Category Date Time Status Chest 1V Frontal [CR] Stat Exams 09/15/20 23:18 Ordered Head wo Cont [CT] Stat Exams 09/15/20 23:18 Ordered Labs: Laboratory Tests 09/15/20 09/15/20 09/15/20 Range/Units 22:53 22:53 22:54 WBC 7.5 (4.0-11.0) K/uL RBC 4.60 (3.80-5.80) M/uL Hgb 13.8 (11.5-16.5) g/dL Hct 41.3 (37.0-47.0) % MCV 90 (76-96) fL MCH 30.0 (27.0-32.0) pg MCHC 33.4 (31.0-35.0) g/dL RDW 14.9 (11.0-16.0) % Plt Count 255 (150-500) K/uL MPV 11.1 H (6.0-10.0) fL Neut % (Auto) 56.0 (45.0-70.0) % Lymph % (Auto) 36.2 (20.0-40.0) % [place] % (Auto) 6.6 (3.0-10.0) % Eos % (Auto) 0.8 L (1.0-5.0) % Baso % (Auto) 0.4 (0.0-0.5) % Neut # (Auto) 4.19 (2.00-7.50) K/uL Lymph # (Auto) 2.71 (1.50-4.00) K/uL [place] # (Auto) 0.49 (0.20-0.80) K/uL Eos # (Auto) 0.06 (0.04-0.40) K/uL Baso # (Auto) 0.03 (0.02-0.10) K/uL Sodium 142 (136-145) mmol/L Potassium 3.4 L (3.5-5.1) mmol/L Chloride 107 (98-107) mmol/L Carbon Dioxide 23.1 (21.0-32.0) mmol/L Anion Gap 15.3 H (5.0-15.0) mmol/L BUN 7 L D (8-26) mg/dL Creatinine 0.83 (0.55-1.02) mg/dL Est Cr Clr Drug Dosing 77.02 mL/min Estimated GFR (MDRD) > 60 (>60) MLS/MIN BUN/Creatinine Ratio 8.4 (6-25) Glucose 103 H (74-100) mg/dL Calcium 8.5 (8.5-10.1) mg/dL Total Bilirubin 0.1 (0.0-1.0) mg/dL AST 56 H (15-37) U/L ALT 61 (12-78) U/L Alkaline Phosphatase 92 (46-116) U/L Troponin I (0.000-0.060) ng/mL Total Protein 7.3 (6.4-8.2) g/dL Albumin 3.1 L (3.4-5.0) g/dL Globulin 4.2 (2.2-4.2) g/dL Albumin/Globulin Ratio 0.7 L (0.8-2.0) Urine Color Yellow Urine Appearance Slightly cloudy (CLEAR) Urine pH 5.5 (5.0-8.0) Ur Specific [place] <= 1.005 (1.003-1.030) Urine Protein Negative (NEGATIVE) mg/dL Urine Glucose (UA) Negative (NEGATIVE) mg/dL Urine Ketones Negative (NEGATIVE) mg/dL Urine Occult Blood Large H (NEGATIVE) Urine Nitrite Negative (NEGATIVE) Urine Bilirubin Negative (NEGATIVE) Urine Urobilinogen 0.2 (0.2-1.0) E.U./dL Ur Leukocyte Esterase Negative (NEGATIVE) Urine RBC 0-5 H /HPF Urine WBC 0-5 H /HPF Ur Squamous Epith Cells Few /HPF Urine Opiates Screen (NEGATIVE) Ur Oxycodone Screen (NEGATIVE) Urine Methadone Screen (NEGATIVE) Ur Barbiturates Screen (NEGATIVE) Ur Tricyclics Screen (NEGATIVE) Ur Phencyclidine Scrn (NEGATIVE) Ur Amphetamine Screen (NEGATIVE) U Methamphetamines Scrn (NEGATIVE) Urine MDMA Screen (NEGATIVE) U Benzodiazepines Scrn (NEGATIVE) U Cocaine Metab Screen (NEGATIVE) U Marijuana (THC) Screen (NEGATIVE) Ethyl Alcohol 204.0 H (<3.0) mg/dL SARS CoV-2 RNA Rapid JULIO 09/15/20 09/15/20 09/15/20 Range/Units 22:54 22:55 23:10 WBC (4.0-11.0) K/uL RBC (3.80-5.80) M/uL Hgb (11.5-16.5) g/dL Hct (37.0-47.0) % MCV (76-96) fL MCH (27.0-32.0) pg MCHC (31.0-35.0) g/dL RDW (11.0-16.0) % Plt Count (150-500) K/uL MPV (6.0-10.0) fL Neut % (Auto) (45.0-70.0) % Lymph % (Auto) (20.0-40.0) % [place] % (Auto) (3.0-10.0) % Eos % (Auto) (1.0-5.0) % Baso % (Auto) (0.0-0.5) % Neut # (Auto) (2.00-7.50) K/uL Lymph # (Auto) (1.50-4.00) K/uL [place] # (Auto) (0.20-0.80) K/uL Eos # (Auto) (0.04-0.40) K/uL Baso # (Auto) (0.02-0.10) K/uL Sodium (136-145) mmol/L Potassium (3.5-5.1) mmol/L Chloride (98-107) mmol/L Carbon Dioxide (21.0-32.0) mmol/L Anion Gap (5.0-15.0) mmol/L BUN (8-26) mg/dL Creatinine (0.55-1.02) mg/dL Est Cr Clr Drug Dosing mL/min Estimated GFR (MDRD) (>60) MLS/MIN BUN/Creatinine Ratio (6-25) Glucose (74-100) mg/dL Calcium (8.5-10.1) mg/dL Total Bilirubin (0.0-1.0) mg/dL AST (15-37) U/L ALT (12-78) U/L Alkaline Phosphatase (46-116) U/L Troponin I < 0.017 (0.000-0.060) ng/mL Total Protein (6.4-8.2) g/dL Albumin (3.4-5.0) g/dL Globulin (2.2-4.2) g/dL Albumin/Globulin Ratio (0.8-2.0) Urine Color Urine Appearance (CLEAR) Urine pH (5.0-8.0) Ur Specific [place] (1.003-1.030) Urine Protein (NEGATIVE) mg/dL Urine Glucose (UA) (NEGATIVE) mg/dL Urine Ketones (NEGATIVE) mg/dL Urine Occult Blood (NEGATIVE) Urine Nitrite (NEGATIVE) Urine Bilirubin (NEGATIVE) Urine Urobilinogen (0.2-1.0) E.U./dL Ur Leukocyte Esterase (NEGATIVE) Urine RBC /HPF Urine WBC /HPF Ur Squamous Epith Cells /HPF Urine Opiates Screen Negative (NEGATIVE) Ur Oxycodone Screen Negative (NEGATIVE) Urine Methadone Screen Negative (NEGATIVE) Ur Barbiturates Screen Negative (NEGATIVE) Ur Tricyclics Screen Negative (NEGATIVE) Ur Phencyclidine Scrn Negative (NEGATIVE) Ur Amphetamine Screen Negative (NEGATIVE) U Methamphetamines Scrn Negative (NEGATIVE) Urine MDMA Screen Negative (NEGATIVE) U Benzodiazepines Scrn Negative (NEGATIVE) U Cocaine Metab Screen Negative (NEGATIVE) U Marijuana (THC) Screen Negative (NEGATIVE) Ethyl Alcohol (<3.0) mg/dL SARS CoV-2 RNA Rapid JULIO Negative Meds: Medications Discontinued Medications Generic Name Dose Route Start Last Admin Trade Name Freq PRN Reason Stop Dose Admin Prochlorperazine Edisylate 10 52 mls @ 150 mls/hr 09/15/20 23:12 mg/ Sodium Chloride IV 09/15/20 23:32 ONETIME ONE Departure - Departure Time of Disposition: 00:38 Disposition: Home, Self-Care 01 Condition: Good Clinical Impression: Elevated liver enzymes Alcohol intoxication Qualifiers: Complication of substance-induced condition: uncomplicated Qualified Code(s): F10.920 - Alcohol use, unspecified with intoxication, uncomplicated Left shoulder pain Qualifiers: Chronicity: unspecified Qualified Code(s): M25.512 - Pain in left shoulder - Discharge Information *PRESCRIPTION DRUG MONITORING PROGRAM REVIEWED*: Not Applicable *COPY OF PRESCRIPTION DRUG MONITORING REPORT IN PATIENT RIKY: Not Applicable Instructions: Shoulder Pain, [id number] Forms: ED Department Discharge Additional Instructions: Return to ED for any increased or new concerning symptoms. Avoid alcohol. Follow up with your PMD this week for continued symptoms. Sepsis Event Note (ED) - Evaluation Sepsis Screening Result: No Definite Risk - Focused Exam Vital Signs: Vital Signs Temp Pulse Resp BP Pulse Ox 09/15/20 23:00 98.2 F 82 20 173/88 H 95 - My Orders Last 24 Hours: My Active Orders 09/15/20 23:18 Chest 1V Frontal [CR] Stat Head wo Cont [CT] Stat - Assessment/Plan Last 24 Hours: My Active Orders 09/15/20 23:18 Chest 1V Frontal [CR] Stat Head wo Cont [CT] Stat Assessment:: patent airway, patient answers questions appropriately. Taken to CT due to altered mental status. She states that she remembers drinking (which she doesn't normally do) and starting to have a panic attack, then she woke in the hospital. She states this has happened in the past. She is in the process of moving and is very stressed out. DDX: CA, drug OD, seizure. Negative troponin, EKG, UDS. Plan: Discussed with patient overnight admission for observation. She does not want to stay in the hospital and refusing admission, she would like to DC home. Patient has been awake since shortly after arrival. At DC she is awake, laughing and talking with no C/O pain, SOB, nausea. She will return to ED if she has any new or increased symptoms.
[2020-09-16 00:26] VITALS: BP 152/72; PULSE 87
--- NOTE | 2020-09-16 08:44 | CT ---
DATE OF SERVICE: 09/15/20 CLINICAL DATA: altered mental status UNENHANCED BRAIN CT: Comparison is made to a prior exam dated 03/29/20. Motion artifact degrades image quality. No masses or mass effect. No intracranial hemorrhage. No evidence of acute or subacute infarct. No osseous abnormalities. IMPRESSION: No acute intracranial abnormalities. [id number] [facility]
--- NOTE | 2020-09-16 08:47 | CR ---
DATE OF SERVICE: 09/15/20 CLINICAL DATA: altered mental status AP CHEST: The patient is in an apical lordotic position. Comparison is made to a prior exam dated 08/01/20. The heart size is normal. The lungs are clear. No changes from the prior exam. No evidence of acute intrathoracic disease. [id number] [facility]
== END 2020-09-16 00:45 | disposition home or self-care (01) ==
LOC: LB.ED 22:33
DX: M25.512 Pain in left shoulder (principal); F10.120 Alcohol abuse with intoxication, uncomplicated; R74.8 Abnormal levels of other serum enzymes; Z88.1 Allergy status to other antibiotic agents; Z88.0 Allergy status to penicillin; Z91.048 Other nonmedicinal substance allergy status; Z79.899 Other long term (current) drug therapy; I10 Essential (primary) hypertension; F31.9 Bipolar disorder, unspecified; F41.9 Anxiety disorder, unspecified; K21.9 Gastro-esophageal reflux disease without esophagitis; Y90.7 Blood alcohol level of 200-239 mg/100 ml; Z20.828 Contact with and (suspected) exposure to other viral communicable diseases
CPT/HCPCS: 36415; 70450; 71045; 80053; 80307; 81001; 84484; 85025; 87635; 93005; 96365; 96375; 99285; J0780; J2310; J7030; U0002

== ENCOUNTER 2021-06-07 23:45 | Emergency (ER) | payer SELFPAY ==
[2021-06-07] MEDS ORDERED: Naloxone 2 MG/2 ML Syringe IVPUSH STA (23:58)
[2021-06-08] MEDS ORDERED: Sodium Chloride 0.9% 10 ML Syringe FLUSH PRN (00:31)
[2021-06-08] MEDS ORDERED: Sodium Chloride 0.9% 1,000 ML IV ONE (00:31)
[2021-06-08] MEDS ORDERED: Naloxone 2 MG/2 ML Syringe IVPUSH STA (00:31)
--- NOTE | 2021-06-08 00:38 | EDM.PDOC ---
ED HPI GENERAL MEDICAL PROBLEM - General Chief Complaint: Behavioral/Psych Stated Complaint: overdose - unresponsive Time Seen by Provider: 06/08/21 00:33 Source of Information: Reports: EMS History Limitations: Reports: Altered Mental Status - History of Present Illness INITIAL COMMENTS - FREE TEXT/NARRATIVE: patient was brought to the ER - after she was found to be unresponsive. h/o drugs abuse in the past. In the scene, she was unresponsive, was given Narcan Intranasally by deputy and was brought to the ER for evaluation. h/o multiple suicidal attempts in the past. Per report, she was seen unresponsive near the outdoor bathrooms, nearby bystanders called 911.. - Related Data Allergies Allergy/AdvReac Type Severity Reaction Status Date / Time ampicillin Allergy Anaphylactic Verified 09/16/20 01:15 Shock Penicillins Allergy Yeast Verified 09/16/20 01:15 Infections plastic adhesive tape Allergy Blisters Uncoded 09/16/20 01:15 Home Meds: Home Meds Albuterol [Proair HFA] 1 - 2 puff INH Q6HR PRN 03/08/16 [History] Desvenlafaxine [Pristiq] 100 mg PO DAILY 03/08/16 [History] Gabapentin 900 mg PO TID 03/08/16 [History] lamoTRIgine [Lamotrigine] 100 mg PO DAILY 03/08/16 [History] traZODone HCl [Trazodone HCl] 100 mg PO QPM PRN 03/08/16 [History] Propranolol HCl [Inderal LA] 60 mg PO DAILY 03/19/17 [History] Ibuprofen 800 mg PO TID 10/25/18 [History] Losartan [Cozaar] 25 mg PO DAILY 10/09/19 [History] Cyclobenzaprine [Flexeril] 10 mg PO BEDTIME PRN 01/22/20 [History] Omeprazole Magnesium [Prilosec Otc] 20 mg PO DAILY 02/29/20 [History] guaiFENesin/Codeine Phosphate [Coditussin AC Liquid] 5 ml PO Q6HR #473 liquid 08/01/20 [Rx] predniSONE [Prednisone] 40 mg PO WITHBREAKFAST #10 tablet 08/01/20 [Rx] Past Medical History HEENT History: Reports: Impaired Vision Other HEENT History: "Deviated septum showed on CT " Cardiovascular History: Reports: Hypertension Other Cardiovascular History: Took steroid for heart inflammation and fluid Respiratory History: Reports: Bronchitis, Recurrent, SOB Gastrointestinal History: Reports: Chronic Constipation, Chronic Diarrhea, GERD Other Gastrointestinal History: chronic abdominal pain COURT ASSISTANT History: Reports: Ectopic , , Other (See Below) Other COURT ASSISTANT History: two etopic pregnancies Musculoskeletal History: Reports: Back Pain, Chronic, Fracture, Other (See Below) Other Musculoskeletal History: Tendonitis Neurological History: Reports: Concussion, Headaches, Chronic, Migraines Psychiatric History: Reports: Anxiety, Bipolar, Depression, Mood Swings, Panic Attack Hematologic History: Reports: Anemia Immunologic History: Reports: Other (See Below) Other Immunologic History: pt states she was told she has a weak immune system, but doesnt know why Oncologic (Cancer) History: Reports: Breast Dermatologic History: Reports: Other (See Below) Other Dermatologic History: boils - unknown etiology - Infectious Disease History Infectious Disease History: Reports: Chicken Pox - Past Surgical History Neurological Surgical History: Reports: Other (See Below) Other Neurological Surgeries/Procedures: nerve release in back. some nerve damage. Musculoskeletal Surgical History: Reports: None, Other (See Below) Other Musculoskeletal Surgeries/Procedures:: numerous back surgeries, last one 08/08 Oncologic Surgical History: Reports: Lumpectomy Other Oncologic Surgeries/Procedures: right breast lumpectomy -benign Social & Family History - Family History Family Medical History: No Pertinent Family History Psychiatric: Reports: Anxiety, Bipolar, Depression - Caffeine Use Caffeine Use: Reports: Coffee, Soda, Tea - Living Situation & Occupation Living situation: Reports: Single ED ROS GENERAL - Review of Systems Review Of Systems: Unable To Obtain Reason Not Obtained: due to patient's mental status ED EXAM, GENERAL - Physical Exam Exam: See Below Exam Limited By: Intoxication General Appearance: Obtunded Eye Exam: Bilateral Eye: EOMI, PERRL Head: Atraumatic Neck: Normal Inspection Respiratory/Chest: No Respiratory Distress, Other (slow to breath) GI/Abdominal: Normal Bowel Sounds, Soft, Non-Tender Extremities: Normal Inspection Neurological: Unresponsive Course - Orders/Labs/Meds Orders: Active Orders 24 hr Category Date Time Status Potassium Chloride Med 06/08/21 01:06 Stat 10 meq IV NOW STA Sodium Chloride 0.9% [Saline Flush] Med 06/08/21 00:31 Active 10 ml FLUSH ASDIRECTED PRN Saline Lock Insert [OM.PC] Routine Oth 06/08/21 00:31 Ordered Medication Orders Potassium Chloride (Potassium Chloride 40 Meq/20 Ml Sdv) 10 meq IV NOW STA Stop: 06/08/21 01:07 Sodium Chloride (Sodium Chloride 0.9% 10 Ml Syringe) 10 ml FLUSH ASDIRECTED PRN PRN Reason: Keep Vein Open Labs: Laboratory Tests 06/08/21 06/08/21 06/08/21 Range/Units 00:25 00:25 00:25 WBC 7.4 (4.0-11.0) K/uL RBC 4.48 (3.80-5.80) M/uL Hgb 13.0 (11.5-16.5) g/dL Hct 38.7 (37.0-47.0) % MCV 86 (76-96) fL MCH 29.0 (27.0-32.0) pg MCHC 33.6 (31.0-35.0) g/dL RDW 14.8 (11.0-16.0) % Plt Count 229 (150-500) K/uL MPV 10.4 H (6.0-10.0) fL Sodium 139 (136-145) mmol/L Potassium 2.6 L* D (3.5-5.1) mmol/L Chloride 103 (98-107) mmol/L Carbon Dioxide 22.4 (21.0-32.0) mmol/L Anion Gap 16.2 H (5.0-15.0) mmol/L BUN 5 L D (8-26) mg/dL Creatinine 0.75 (0.55-1.02) mg/dL Est Cr Clr Drug Dosing TNP Estimated GFR (MDRD) > 60 (>60) MLS/MIN BUN/Creatinine Ratio 6.7 (6-25) Glucose 104 H (74-100) mg/dL Calcium 7.9 L (8.5-10.1) mg/dL Urine Opiates Screen (NEGATIVE) Ur Oxycodone Screen (NEGATIVE) Urine Methadone Screen (NEGATIVE) Ur Barbiturates Screen (NEGATIVE) Ur Tricyclics Screen (NEGATIVE) Ur Phencyclidine Scrn (NEGATIVE) Ur Amphetamine Screen (NEGATIVE) U Methamphetamines Scrn (NEGATIVE) Urine MDMA Screen (NEGATIVE) U Benzodiazepines Scrn (NEGATIVE) U Cocaine Metab Screen (NEGATIVE) U Marijuana (THC) Screen (NEGATIVE) Ethyl Alcohol 218.0 H (<3.0) mg/dL 06/08/21 Range/Units 00:35 WBC (4.0-11.0) K/uL RBC (3.80-5.80) M/uL Hgb (11.5-16.5) g/dL Hct (37.0-47.0) % MCV (76-96) fL MCH (27.0-32.0) pg MCHC (31.0-35.0) g/dL RDW (11.0-16.0) % Plt Count (150-500) K/uL MPV (6.0-10.0) fL Sodium (136-145) mmol/L Potassium (3.5-5.1) mmol/L Chloride (98-107) mmol/L Carbon Dioxide (21.0-32.0) mmol/L Anion Gap (5.0-15.0) mmol/L BUN (8-26) mg/dL Creatinine (0.55-1.02) mg/dL Est Cr Clr Drug Dosing Estimated GFR (MDRD) (>60) MLS/MIN BUN/Creatinine Ratio (6-25) Glucose (74-100) mg/dL Calcium (8.5-10.1) mg/dL Urine Opiates Screen Negative (NEGATIVE) Ur Oxycodone Screen Negative (NEGATIVE) Urine Methadone Screen Negative (NEGATIVE) Ur Barbiturates Screen Negative (NEGATIVE) Ur Tricyclics Screen Negative (NEGATIVE) Ur Phencyclidine Scrn Negative (NEGATIVE) Ur Amphetamine Screen Negative (NEGATIVE) U Methamphetamines Scrn Negative (NEGATIVE) Urine MDMA Screen Negative (NEGATIVE) U Benzodiazepines Scrn Negative (NEGATIVE) U Cocaine Metab Screen Negative (NEGATIVE) U Marijuana (THC) Screen Negative (NEGATIVE) Ethyl Alcohol (<3.0) mg/dL Meds: Medications Generic Name Dose Route Start Last Admin Trade Name Freq PRN Reason Stop Dose Admin Potassium Chloride 10 meq 06/08/21 01:06 Potassium Chloride 40 Meq/20 Ml Sdv IV 06/08/21 01:07 NOW STA Sodium Chloride 10 ml 06/08/21 00:31 Sodium Chloride 0.9% 10 Ml Syringe FLUSH ASDIRECTED PRN Keep Vein Open Discontinued Medications Generic Name Dose Route Start Last Admin Trade Name Freq PRN Reason Stop Dose Admin Sodium Chloride 1,000 mls @ 999 mls/hr 06/08/21 00:31 Normal Saline IV 06/08/21 01:31 .BOLUS ONE Naloxone HCl 0.1 mg 06/08/21 00:31 Naloxone 2 Mg/2 Ml Syringe IVPUSH 06/08/21 00:32 NOW STA Potassium Chloride 20 meq 06/08/21 01:06 Potassium Chloride 20 Meq Tab.Er PO 06/08/21 01:07 ONETIME ONE - Re-Assessments/Exams Free Text/Narrative Re-Assessment/Exam: 06/08/21 00:37 Narcan was given by IV x2. patient was able to wake up and open her eyes - vitals WNL few minutes later - she was talking and answering questions. She denies taking any drugs but admits drinking alcohol. She also reported that she just found out that her nephew who went missing 3 days ago - was found . 06/08/21 01:04 patient is alert and oriented. able to protect her airways. talking in full sentences. Denies any suicidal ideations and denies any drugs abuse, but admits some alcohol onboard. 06/08/21 01:28 labs significant for hypokalemia and Elevation in ETOH IV k was given, as well as, PO Kcl. discussed with the patient the option of going tonight a detox/mental rehab to spend 2-3 days - for mental therapy and away from stress. She declined at this time, reports shat she prefers to go home, take care of her dog and be supportive to her family who needs her at this time. Her boyfriend is in the room with her and is supportive as well. 06/08/21 01:46 patient will be d/cd home with her significant other she will return to the ER if any concerns and will call her PCP on Wednesday for a follow up Departure - Departure Time of Disposition: 02:15 Disposition: Home, Self-Care 01 Condition: Good Clinical Impression: Hypokalemia Alcohol intoxication Qualifiers: Complication of substance-induced condition: uncomplicated Qualified Code(s): F10.920 - Alcohol use, unspecified with intoxication, uncomplicated - Discharge Information *PRESCRIPTION DRUG MONITORING PROGRAM REVIEWED*: Not Applicable *COPY OF PRESCRIPTION DRUG MONITORING REPORT IN PATIENT RIKY: Not Applicable Instructions: Hypokalemia, Alcohol Intoxication, [id number] Forms: ED Department Discharge - Problem List & Annotations (1) Alcohol intoxication SNOMED Code(s): 46213266 Code(s): F10.929 - ALCOHOL USE, UNSPECIFIED WITH INTOXICATION, UNSPECIFIED Status: Acute Priority: Medium Qualifiers: Complication of substance-induced condition: uncomplicated Qualified Code(s): F10.920 - Alcohol use, unspecified with intoxication, uncomplicated (2) Hypokalemia SNOMED Code(s): 05805909 Code(s): E87.6 - HYPOKALEMIA Status: Acute Priority: Low - Problem List Review Problem List Initiated/Reviewed/Updated: Yes - My Orders Last 24 Hours: My Active Orders 06/08/21 00:31 Sodium Chloride 0.9% [Saline Flush] 10 ml FLUSH ASDIRECTED PRN Saline Lock Insert [OM.PC] Routine 06/08/21 01:06 Potassium Chloride 10 meq IV NOW STA - Assessment/Plan Last 24 Hours: My Active Orders 06/08/21 00:31 Sodium Chloride 0.9% [Saline Flush] 10 ml FLUSH ASDIRECTED PRN Saline Lock Insert [OM.PC] Routine 06/08/21 01:06 Potassium Chloride 10 meq IV NOW STA Plan: - increase fluids intake - moderation in alcohol intake - increase potassium intake in K rich food. Banana and greens - call early next week to schedule an appointment with primary care provider - return to the ER if any concerns or suicidal ideations
[2021-06-08] MEDS ORDERED: Potassium Chloride 40 MEQ/20 ML SDV IV STA (01:06)
[2021-06-08] MEDS ORDERED: Potassium Chloride 20 MEQ Tab.ER PO ONE (01:06)
[2021-06-08] MEDS ORDERED: Potassium Chloride Riders 10 MEQ in Premix Bag 1 BAG IV STA (01:15)
[2021-06-08 04:57] VITALS: BP 159/90; PULSE 95
== END 2021-06-08 02:25 | disposition home or self-care (01) ==
LOC: LB.ED 23:45
DX: F10.129 Alcohol abuse with intoxication, unspecified (principal); E87.6 Hypokalemia; I10 Essential (primary) hypertension; Z88.0 Allergy status to penicillin; Z91.048 Other nonmedicinal substance allergy status; Z79.899 Other long term (current) drug therapy; Y90.7 Blood alcohol level of 200-239 mg/100 ml
CPT/HCPCS: 36415; 80048; 80307; 85027; 96365; 96375; 99285-25; A9270-GY; J2310; J3480; J7030

== ENCOUNTER 2021-07-15 18:34 | Emergency (ER) | payer MEDICAID ==
[2021-07-15 19:05] VITALS: BP 154/79; PULSE 91
[2021-07-15] MEDS ORDERED: Ketorolac 60 MG/2 ML SDV IM ONE (19:08)
[2021-07-15] MEDS ORDERED: HYDROmorphone 2 MG/ML SDV IM ONE (19:08)
[2021-07-15] MEDS ORDERED: Ondansetron 4 MG Tab.DIS PO PRN (19:46)
--- NOTE | 2021-07-15 20:23 | EDM.PDOC ---
ED HPI GENERAL MEDICAL PROBLEM - General Chief Complaint: Back Pain or Injury Stated Complaint: Fell down stairs Time Seen by Provider: 07/15/21 19:30 - History of Present Illness INITIAL COMMENTS - FREE TEXT/NARRATIVE: Pt CO/ falling down a flight of steps this morning about 8:30 AM. She tripped over a dog. She had a H/A, neck pain, posterior chest wall pain, and left posterior hip pain. She continued with her normal activity for awhile, then slept for a couple hours. Her pain has gotten worse over the course of the day. No vomiting, dizziness, or SOB. Left Back Pain Score (Numeric/FACES): 9 - Related Data Allergies Allergy/AdvReac Type Severity Reaction Status Date / Time ampicillin Allergy Anaphylactic Verified 06/08/21 05:08 Shock azithromycin Allergy Other Verified 06/08/21 05:08 Penicillins Allergy Yeast Verified 06/08/21 05:08 Infections plastic adhesive tape Allergy Blisters Uncoded 06/08/21 05:08 Home Meds: Home Meds NK [No Known Home Meds] 06/08/21 [History] Past Medical History HEENT History: Reports: Impaired Vision Other HEENT History: "Deviated septum showed on CT " Cardiovascular History: Reports: Heart Failure, Hypertension Other Cardiovascular History: Took steroid for heart inflammation and fluid Respiratory History: Reports: Bronchitis, Recurrent, SOB Gastrointestinal History: Reports: Chronic Constipation, Chronic Diarrhea, GERD Other Gastrointestinal History: chronic abdominal pain SVP OF DIGITAL History: Reports: Ectopic , , Other (See Below) Other SVP OF DIGITAL History: two etopic pregnancies Musculoskeletal History: Reports: Back Pain, Chronic, Fracture, Other (See Below) Other Musculoskeletal History: Tendonitis Neurological History: Reports: Concussion, Headaches, Chronic, Migraines Psychiatric History: Reports: Anxiety, Bipolar, Depression, Mood Swings, Panic Attack Hematologic History: Reports: Anemia Immunologic History: Reports: Other (See Below) Other Immunologic History: pt states she was told she has a weak immune system, but doesnt know why Oncologic (Cancer) History: Reports: Breast Dermatologic History: Reports: Other (See Below) Other Dermatologic History: boils - unknown etiology - Infectious Disease History Infectious Disease History: Reports: Chicken Pox - Past Surgical History Neurological Surgical History: Reports: Other (See Below) Other Neurological Surgeries/Procedures: nerve release in back. some nerve damage. Musculoskeletal Surgical History: Reports: None, Other (See Below) Other Musculoskeletal Surgeries/Procedures:: numerous back surgeries, last one 08/08 Oncologic Surgical History: Reports: Lumpectomy Other Oncologic Surgeries/Procedures: right breast lumpectomy -benign Social & Family History - Family History Family Medical History: No Pertinent Family History Psychiatric: Reports: Anxiety, Bipolar, Depression - Caffeine Use Caffeine Use: Reports: Coffee, Soda, Tea - Living Situation & Occupation Living situation: Reports: Single ED ROS GENERAL - Review of Systems Review Of Systems: Comprehensive ROS is negative, except as noted in HPI. Musculoskeletal: Reports: Neck Pain, Back Pain Neurological: Reports: Headache ED EXAM, HEAD INJURY - Physical Exam Exam: See Below General Appearance: Anxious, Mild Distress Head: Other (No sign of injury to her scalp.) Eyes: Bilateral Eye: EOMI, PERRL Neck: Painful Range of Motion, Tenderness (with palpation to the left side.) Back Exam: Other (tenderness over the left posterior chest wall with palpation or taking a DB.) Course - Vital Signs Last Recorded V/S: Last Vital Signs Temp 98.2 F 07/15/21 18:45 Pulse 91 07/15/21 18:45 Resp 18 07/15/21 18:45 BP 154/79 H 07/15/21 18:45 Pulse Ox 99 07/15/21 18:45 - Orders/Labs/Meds Orders: Active Orders 24 hr Category Date Time Status Cervical Spine wo Cont [CT] Stat Exams 07/15/21 19:09 Taken Chest wo Cont [CT] Stat Exams 07/15/21 19:09 Taken Head wo Cont [CT] Stat Exams 07/15/21 19:09 Taken Hip Min 2V or 3V Lt [CR] Stat Exams 07/15/21 19:11 Taken Labs: Laboratory Tests 07/15/21 07/15/21 07/15/21 Range/Units 19:20 19:20 19:25 WBC 7.8 (4.0-11.0) K/uL RBC 4.85 (3.80-5.80) M/uL Hgb 14.2 (11.5-16.5) g/dL Hct 42.9 (37.0-47.0) % MCV 89 (76-96) fL MCH 29.3 (27.0-32.0) pg MCHC 33.1 (31.0-35.0) g/dL RDW 15.7 (11.0-16.0) % Plt Count 231 (150-500) K/uL MPV 10.9 H (6.0-10.0) fL Neut % (Auto) 61.2 (45.0-70.0) % Lymph % (Auto) 27.7 (20.0-40.0) % Travis % (Auto) 9.5 (3.0-10.0) % Eos % (Auto) 1.2 (1.0-5.0) % Baso % (Auto) 0.4 (0.0-0.5) % Neut # (Auto) 4.76 (2.00-7.50) K/uL Lymph # (Auto) 2.15 (1.50-4.00) K/uL Travis # (Auto) 0.74 (0.20-0.80) K/uL Eos # (Auto) 0.09 (0.04-0.40) K/uL Baso # (Auto) 0.03 (0.02-0.10) K/uL Sodium 137 (136-145) mmol/L Potassium 3.4 L D (3.5-5.1) mmol/L Chloride 106 (98-107) mmol/L Carbon Dioxide 27.2 D (21.0-32.0) mmol/L Anion Gap 7.2 (5.0-15.0) mmol/L BUN 7 L D (8-26) mg/dL Creatinine 0.85 (0.55-1.02) mg/dL Est Cr Clr Drug Dosing 75.21 mL/min Estimated GFR (MDRD) > 60 (>60) MLS/MIN BUN/Creatinine Ratio 8.2 (6-25) Glucose 88 (74-100) mg/dL Calcium 8.7 (8.5-10.1) mg/dL Total Bilirubin 0.2 D (0.0-1.0) mg/dL AST 17 (15-37) U/L ALT 24 (12-78) U/L Alkaline Phosphatase 83 (46-116) U/L Total Protein 7.5 (6.4-8.2) g/dL Albumin 3.2 L (3.4-5.0) g/dL Globulin 4.3 H (2.2-4.2) g/dL Albumin/Globulin Ratio 0.7 L (0.8-2.0) Urine Color Yellow Urine Appearance Slightly cloudy (CLEAR) Urine pH 5.5 (5.0-8.0) Ur Specific [place] >= 1.030 (1.003-1.030) Urine Protein Trace H (NEGATIVE) mg/dL Urine Glucose (UA) Negative (NEGATIVE) mg/dL Urine Ketones Trace H (NEGATIVE) mg/dL Urine Occult Blood Negative (NEGATIVE) Urine Nitrite Negative (NEGATIVE) Urine Bilirubin Small H (NEGATIVE) Urine Urobilinogen 0.2 (0.2-1.0) E.U./dL Ur Leukocyte Esterase Negative (NEGATIVE) Urine RBC Not seen /HPF Urine WBC 0-5 H /HPF Ur Squamous Epith Cells Many /HPF Amorphous Sediment Few /HPF Urine Bacteria Few /HPF Meds: Medications Discontinued Medications Generic Name Dose Route Start Last Admin Trade Name Freq PRN Reason Stop Dose Admin Hydromorphone HCl 1 mg 07/15/21 19:08 07/15/21 19:17 Hydromorphone 2 Mg/Ml Sdv IM 07/15/21 19:09 1 mg ONETIME ONE Administration Ketorolac Tromethamine 60 mg 07/15/21 19:08 07/15/21 19:15 Ketorolac 60 Mg/2 Ml Sdv IM 07/15/21 19:09 60 mg ONETIME ONE Administration - Re-Assessments/Exams Free Text/Narrative Re-Assessment/Exam: 07/15/21 20:24 Pt was given Toradol 60 mg IM and Dilaudid 1 mg IM. Her pain did improve with these tx measures. CT of head, neck, and chest are negative for acute injury or fracture. X-RAY of left hip is negative. She will be discharged home. She will be given Toradol 10 mg tabs to take with food. Also use Tylenol between doses of Toradol. Ice to head and neck for a couple days. Rest - light duty activity as tolerated. Re check in clinic in 2-3 days. Departure - Departure Time of Disposition: 20:20 Disposition: Home, Self-Care 01 Condition: Good Clinical Impression: Contusion Qualifiers: Encounter type: initial encounter Contusion area: head Contusion of head detail: scalp Qualified Code(s): S00.03XA - Contusion of scalp, initial encounter - Discharge Information *PRESCRIPTION DRUG MONITORING PROGRAM REVIEWED*: No *COPY OF PRESCRIPTION DRUG MONITORING REPORT IN PATIENT RIKY: No Referrals: PCP,None [Primary Care Provider] - Sepsis Event Note (ED) - Evaluation Sepsis Screening Result: No Definite Risk - Focused Exam Vital Signs: Vital Signs Temp Pulse Resp BP Pulse Ox 07/15/21 18:45 98.2 F 91 18 154/79 H 99 - My Orders Last 24 Hours: My Active Orders 07/15/21 19:09 Cervical Spine wo Cont [CT] Stat Chest wo Cont [CT] Stat Head wo Cont [CT] Stat 07/15/21 19:11 Hip Min 2V or 3V Lt [CR] Stat - Assessment/Plan Last 24 Hours: My Active Orders 07/15/21 19:09 Cervical Spine wo Cont [CT] Stat Chest wo Cont [CT] Stat Head wo Cont [CT] Stat 07/15/21 19:11 Hip Min 2V or 3V Lt [CR] Stat
--- NOTE | 2021-07-16 08:00 | CT ---
DATE OF SERVICE: 07/15/21 CLINICAL DATA: fall down steps UNENHANCED BRAIN CT: Multislice acquisition through the brain without IV contrast was performed. Comparison is made to a prior exam dated 09/15/20. No masses or mass effect. No intracranial hemorrhage. No evidence of acute or subacute infarct. No osseous abnormalities. IMPRESSION: No acute intracranial abnormalities. [id number] [facility]
--- NOTE | 2021-07-16 08:03 | CR ---
DATE OF SERVICE: 07/15/21 CLINICAL DATA: fall down steps. LEFT HIP: No acute fracture or dislocation. No lytic or blastic bone lesions. [id number] [facility]
--- NOTE | 2021-07-16 08:07 | CT ---
DATE OF SERVICE: 07/15/21 CLINICAL DATA: fall down steps CERVICAL SPINE CT: Multislice axial acquisition was performed. Axial images and sagittal and coronal reformations are reviewed. The vertebral bodies are of average height and in good alignment. No acute fracture or dislocation. There is slight reversal of the normal cervical lordosis. This is most likely positional or due to muscle spasm. The soft tissues are unremarkable. IMPRESSION: No acute abnormalities. [id number] [facility]
--- NOTE | 2021-07-16 08:10 | CT ---
DATE OF SERVICE: 07/15/21 CLINICAL DATA: fall down steps. UNENHANCED CHEST CT: Multislice axial acquisition without IV contrast was performed. No priors. The lungs are clear. No pneumothorax. No pleural effusions. No areas of consolidation. The heart size is normal. No significant pericardial effusion. No aortic aneurysm. No hilar or mediastinal adenopathy. There are low density lesions in the right and left lobes of the liver which are most likely cysts. There is a healed rib fracture on the left. No acute displaced fractures. [id number] [facility]
== END 2021-07-15 20:25 | disposition home or self-care (01) ==
LOC: LB.ED 18:34
DX: S00.03XA Contusion of scalp, initial encounter (principal); I11.0 Hypertensive heart disease with heart failure; I50.9 Heart failure, unspecified; Z88.0 Allergy status to penicillin; Z88.1 Allergy status to other antibiotic agents; Z91.048 Other nonmedicinal substance allergy status; W10.8XXA Fall (on) (from) other stairs and steps, initial encounter
CPT/HCPCS: 36415; 70450; 71250; 72125; 73502; 80053; 81001; 85025; 96374; 96375; 99285; A9270; J1170; J1885; 99283

== ENCOUNTER 2021-08-13 13:58 | Emergency (ER) | payer MEDICAID ==
--- NOTE | 2021-08-13 14:35 | EDM.PDOC ---
ED HPI GENERAL MEDICAL PROBLEM - General Stated Complaint: WEAKNESS Time Seen by Provider: 08/13/21 14:10 - History of Present Illness INITIAL COMMENTS - FREE TEXT/NARRATIVE: Pt comes in with C/O Rt foot injury. She dropped a package of hamburger on it Wednesday evening. She opened the fridge door and it fell out, landing on her foot. She had some swelling that is now better, but it still hurts alot when bearing weight. No bleeding noted at the time of injury. - Related Data Allergies Allergy/AdvReac Type Severity Reaction Status Date / Time ampicillin Allergy Anaphylactic Verified 06/08/21 05:08 Shock azithromycin Allergy Other Verified 06/08/21 05:08 Penicillins Allergy Yeast Verified 06/08/21 05:08 Infections plastic adhesive tape Allergy Blisters Uncoded 06/08/21 05:08 Home Meds: Home Meds NK [No Known Home Meds] 06/08/21 [History] Past Medical History HEENT History: Reports: Impaired Vision Other HEENT History: "Deviated septum showed on CT " Cardiovascular History: Reports: Heart Failure, Hypertension Other Cardiovascular History: Took steroid for heart inflammation and fluid Respiratory History: Reports: Bronchitis, Recurrent, SOB Gastrointestinal History: Reports: Chronic Constipation, Chronic Diarrhea, GERD Other Gastrointestinal History: chronic abdominal pain KINDERGARTNER History: Reports: Ectopic , , Other (See Below) Other KINDERGARTNER History: two etopic pregnancies Musculoskeletal History: Reports: Back Pain, Chronic, Fracture, Other (See Below) Other Musculoskeletal History: Tendonitis Neurological History: Reports: Concussion, Headaches, Chronic, Migraines Psychiatric History: Reports: Anxiety, Bipolar, Depression, Mood Swings, Panic Attack Hematologic History: Reports: Anemia Immunologic History: Reports: Other (See Below) Other Immunologic History: pt states she was told she has a weak immune system, but doesnt know why Oncologic (Cancer) History: Reports: Breast Dermatologic History: Reports: Other (See Below) Other Dermatologic History: boils - unknown etiology - Infectious Disease History Infectious Disease History: Reports: Chicken Pox - Past Surgical History Cardiovascular Surgical History: Reports: None Respiratory Surgical History: Reports: None GI Surgical History: Reports: None Neurological Surgical History: Reports: Other (See Below) Other Neurological Surgeries/Procedures: nerve release in back. some nerve damage. Musculoskeletal Surgical History: Reports: None, Other (See Below) Other Musculoskeletal Surgeries/Procedures:: numerous back surgeries, last one 08/08 Oncologic Surgical History: Reports: Lumpectomy Other Oncologic Surgeries/Procedures: right breast lumpectomy -benign Social & Family History - Family History Family Medical History: No Pertinent Family History Psychiatric: Reports: Anxiety, Bipolar, Depression - Caffeine Use Caffeine Use: Reports: Soda - Living Situation & Occupation Living situation: Reports: Single Review of Systems - Review of Systems Review Of Systems: Comprehensive ROS is negative, except as noted in HPI. Musculoskeletal: Reports: Other (Rt foot injury.) ED EXAM, GENERAL - Physical Exam Exam: See Below Extremities: Other (Examining her Rt foot reveals mild bruising of the distal foot and lateral aspect anterior to the malleolus. Skin is intact. She has pain on the Dorsal midfoot area.) Course - Orders/Labs/Meds Orders: Active Orders 24 hr Category Date Time Status Foot 2V Rt [CR] Stat Exams 08/13/21 14:09 Ordered - Radiology Interpretation Free Text/Narrative:: x-rays are negative for fracture. - Re-Assessments/Exams Free Text/Narrative Re-Assessment/Exam: 08/13/21 14:34 She will be discharged with an Cornell wrap to the foot. Rest and elevated as needed. Tylenol alternating with Motrin for pain. Re check as needed. Departure - Departure Time of Disposition: 14:25 Disposition: Home, Self-Care 01 Condition: Good Clinical Impression: Contusion of foot, right Qualifiers: Encounter type: initial encounter Qualified Code(s): S90.31XA - Contusion of right foot, initial encounter - Discharge Information *PRESCRIPTION DRUG MONITORING PROGRAM REVIEWED*: No *COPY OF PRESCRIPTION DRUG MONITORING REPORT IN PATIENT RIKY: Yes Referrals: PCP,None [Primary Care Provider] - - My Orders Last 24 Hours: My Active Orders 08/13/21 14:09 Foot 2V Rt [CR] Stat - Assessment/Plan Last 24 Hours: My Active Orders 08/13/21 14:09 Foot 2V Rt [CR] Stat
--- NOTE | 2021-08-13 15:36 | CR ---
Date of Service: 08/13/21 Clinical Data: pain RIGHT FOOT: No acute fracture or dislocation. No lytic or blastic bone lesions. [id number] [facility]
[2021-08-13 17:08] VITALS: BP 139/87; PULSE 89
== END 2021-08-13 14:35 | disposition home or self-care (01) ==
LOC: LB.ED 13:58
DX: S90.31XA Contusion of right foot, initial encounter (principal); I11.0 Hypertensive heart disease with heart failure; I50.9 Heart failure, unspecified; Z88.0 Allergy status to penicillin; Z88.1 Allergy status to other antibiotic agents; Z91.048 Other nonmedicinal substance allergy status; W20.8XXA Other cause of strike by thrown, projected or falling object, initial encounter
CPT/HCPCS: 73630-RT; 99283-25

== ENCOUNTER 2022-05-03 07:29 | Emergency (ER) | payer MEDICAID ==
[2022-05-03 07:55] VITALS: BP 165/89
[2022-05-03] MEDS: Acetaminophen 500 MG Tab PO ONE (07:56)
[2022-05-03 08:14] VITALS: PULSE 102
[2022-05-03 09:06] LABS: ESTIMATED GFR > 60 MLS/MIN (>60)
[2022-05-03] MEDS ORDERED: Ibuprofen 400 MG Tab ONE (09:30)
== END 2022-05-03 09:44 | disposition home or self-care (01) ==
LOC: LB.ED 07:29
DX: B34.9 Viral infection, unspecified (principal); I11.0 Hypertensive heart disease with heart failure; I50.9 Heart failure, unspecified; F17.210 Nicotine dependence, cigarettes, uncomplicated; Z88.1 Allergy status to other antibiotic agents; Z91.048 Other nonmedicinal substance allergy status; Z20.822 Contact with and (suspected) exposure to COVID-19
CPT/HCPCS: 36415; 71046; 80053; 81001; 83605; 83690; 85025; 87804; 87804-59; 99282; 99283-25; A9270-GY; U0002

== ENCOUNTER 2022-09-29 09:16 | Emergency (ER) | payer MEDICAID ==
[2022-09-29 09:34] VITALS: PULSE 99
[2022-09-29] MEDS ORDERED: Sodium Chloride 0.9% 10 ML Syringe FLUSH PRN (09:52)
[2022-09-29] MEDS ORDERED: Acetaminophen 500 MG Tab PO ONE (10:45)
[2022-09-29] MEDS ORDERED: Sodium Chloride 0.9% 50 ML SDV FLUSH ONE (11:30)
[2022-09-29] MEDS ORDERED: Iopamidol 612 MG/ML 100 ML Bottle IV SCH (11:30)
[2022-09-29] MEDS ORDERED: Ketorolac 30 MG/ML SDV IVPUSH ONE (11:49)
[2022-09-29] MEDS ORDERED: Ketorolac 30 MG/ML SDV ONE (12:02)
[2022-09-29 13:03] VITALS: BP 173/80
== END 2022-09-29 12:20 | disposition home or self-care (01) ==
LOC: LB.ED 09:16
DX: N28.1 Cyst of kidney, acquired (principal); I11.0 Hypertensive heart disease with heart failure; I50.9 Heart failure, unspecified; K21.9 Gastro-esophageal reflux disease without esophagitis; Z88.1 Allergy status to other antibiotic agents; Z88.0 Allergy status to penicillin; Z91.048 Other nonmedicinal substance allergy status; Z79.899 Other long term (current) drug therapy; Z20.822 Contact with and (suspected) exposure to COVID-19
CPT/HCPCS: 36415; 74177; 80053; 81003; 81025; 85027; 87635; 96374; 99284; A9270; J1885; Q9967; U0002

== ENCOUNTER 2022-12-21 14:32 | Emergency (ER) | payer MEDICAID ==
[2022-12-21 14:46] VITALS: PULSE 120
[2022-12-21 15:11] VITALS: BP 133/88
[2022-12-21] MEDS ORDERED: Ketorolac 60 MG/2 ML SDV IM ONE (15:20)
[2022-12-21] MEDS ORDERED: Ketorolac 30 MG/ML SDV IM ONE (15:21)
[2022-12-21] MEDS ORDERED: Ketorolac 30 MG/ML SDV ONE (15:31)
[2022-12-21 15:53] LABS: CORONAVIRUS COVID-19 NAA POSITIVE (NEGATIVE)
[2022-12-21] MEDS ORDERED: Acetaminophen 500 MG Tab ONE ×2 (16:00→16:12)
[2022-12-21] MEDS ORDERED: Multivitamins with Iron/Calcium/Folic Acid/Minerals Tab ONE (16:12)
== END 2022-12-21 16:20 | disposition home or self-care (01) ==
LOC: LB.ED 14:32
DX: U07.1 COVID-19 (principal); Z88.1 Allergy status to other antibiotic agents; Z91.048 Other nonmedicinal substance allergy status; Z79.899 Other long term (current) drug therapy
CPT/HCPCS: 0240U; 36415; 81001; 85025; 87430; 96372; 99283; A9270-GY; J1885

== ENCOUNTER 2023-02-25 08:00 | Emergency (ER) | payer MEDICAID ==
[2023-02-25] MEDS: Ketorolac 60 MG/2 ML SDV IM ONE (08:41)
[2023-02-25] MEDS: Ketorolac 60 MG/2 ML SDV ONE (08:43)
[2023-02-25] MEDS: Acetaminophen/HYDROcodone 325-5 MG Tab PO ONE (08:49)
[2023-02-25 10:45] VITALS: BP 170/96; PULSE 81
== END 2023-02-25 09:40 | disposition home or self-care (01) ==
LOC: LB.ED 08:00
DX: S50.01XA Contusion of right elbow, initial encounter (principal); I11.0 Hypertensive heart disease with heart failure; I50.9 Heart failure, unspecified; K21.9 Gastro-esophageal reflux disease without esophagitis; E66.9 Obesity, unspecified; Z68.38 Body mass index [BMI] 38.0-38.9, adult; Z91.048 Other nonmedicinal substance allergy status; Z88.0 Allergy status to penicillin; Z88.1 Allergy status to other antibiotic agents; Z79.899 Other long term (current) drug therapy; W18.30XA Fall on same level, unspecified, initial encounter
CPT/HCPCS: 73080-RT; 96372; 99283; A9270-GY; J1885

== ENCOUNTER 2024-12-29 15:31 | Emergency (ER) | payer MEDICAID ==
[2024-12-29] MEDS: Ketorolac 15 MG/ML SDV IVPUSH PRN (16:01)
[2024-12-29] MEDS ORDERED: Sodium Chloride 0.9% 10 ML Syringe FLUSH PRN (16:03)
[2024-12-29 16:14] LABS: HEMATOCRIT 41.3 % (37.0-47.0); HEMOGLOBIN 13.7 g/dL (11.5-16.5); MEAN CORPUSCULAR HEMOGLOBIN 29.5 pg (27.0-32.0); MEAN CORPUSCULAR HGB CONC 33.2 g/dL (31.0-35.0); MEAN PLATELET VOLUME 10.9 fL (6.0-10.0); RED BLOOD CELL COUNT 4.64 M/uL (3.80-5.80); RED CELL DISTRIBUTION WIDTH 14.9 % (11.0-16.0); WHITE BLOOD CELL COUNT,WBC 6.9 K/uL (4.0-11.0)
[2024-12-29 16:24] LABS: A/G RATIO 0.9 (0.8-2.0); ALANINE AMINOTRANSFERASE,ALT 31 U/L (12-78); ALBUMIN 3.2 g/dL (3.4-5.0); ALKALINE PHOSPHATASE 97 U/L (46-116); ANION GAP 12.8 mmol/L (5.0-15.0); ASPARTATE AMNIOTRANSFERASE,AST 21 U/L (15-37); BILIRUBIN TOTAL 0.3 mg/dL (0.0-1.0); BLOOD UREA NITROGEN,BUN 8 mg/dL (8-26); BUN/CREATININE RATIO 9.8 (6-25); CALCIUM 8.2 mg/dL (8.5-10.1); CARBON DIOXIDE,CO2 26.5 mmol/L (21.0-32.0); CHLORIDE,CL 106 mmol/L (98-107); CREATININE 0.82 mg/dL (0.55-1.02); ESTIMATED GFR 90 mL/min (>60); GLUCOSE RANDOM 121 mg/dL (74-100); POTASSIUM,K 3.3 mmol/L (3.5-5.1); PROTEIN TOTAL,TP 6.9 g/dL (6.4-8.2); SODIUM,NA 142 mmol/L (136-145)
[2024-12-29] MEDS: Morphine 4 MG/ML VIAL IVPUSH ONE (16:32)
[2024-12-29] MEDS: Ondansetron 4 MG/2 ML SDV IVPUSH ONE (16:32)
[2024-12-29 16:36] LABS: C-REACTIVE PROTEIN < 5.0 mg/L (<5.0)
[2024-12-29] MEDS: Ondansetron 4 MG/2 ML SDV ONE (17:00)
[2024-12-29 17:07] LABS: APPEARANCE,URINE CLEAR (CLEAR); BILIRUBIN,URINE SMALL (NEGATIVE); COLOR,URINE YELLOW; KETONES,URINE TRACE mg/dL (NEGATIVE); LEUKOCYTE ESTERASE,URINE NEGATIVE (NEGATIVE); NITRITE,URINE NEGATIVE (NEGATIVE); OCCULT BLOOD,URINE NEGATIVE (NEGATIVE); PH,URINE 5.5 (5.0-8.0); PROTEIN,URINE TRACE mg/dL (NEGATIVE); UROBILINOGEN,URINE 0.2 E.U./dL (0.2-1.0)
[2024-12-29] MEDS: Iopamidol 612 MG/ML 100 ML Bottle IV SCH (17:28)
[2024-12-29] MEDS: Sodium Chloride 0.9% 50 ML SDV FLUSH ONE (17:28)
[2024-12-29 17:30] LABS: GLUCOSE,URINE NEGATIVE (NEGATIVE)
[2024-12-29] MEDS ORDERED: Cyclobenzaprine 10 MG Tab ONE (18:00)
[2024-12-29 19:59] VITALS: PULSE 70
== END 2024-12-29 18:25 | disposition home or self-care (01) ==
LOC: LB.ED 15:31
DX: R07.89 Other chest pain (principal); I11.0 Hypertensive heart disease with heart failure; I50.9 Heart failure, unspecified; K21.9 Gastro-esophageal reflux disease without esophagitis; E66.9 Obesity, unspecified; Z88.0 Allergy status to penicillin; Z91.048 Other nonmedicinal substance allergy status; Z79.899 Other long term (current) drug therapy; Z68.38 Body mass index [BMI] 38.0-38.9, adult
CPT/HCPCS: 36415; 71045; 74177; 80053; 81003; 81025; 84484; 85027; 85379; 86140; 93005; 96374; 96375; 99285-25; A9270-GY; J1885; J2270; J2405; J3490; Q9967

== ENCOUNTER 2025-08-06 15:21 | Emergency (ER) | payer MEDICAID ==
[2025-08-06 16:35] LABS: BASOPHILS ABSOLUTE AUTO 0.03 K/uL (0.02-0.10); BASOPHILS PERCENT AUTO 0.4 % (0.0-0.5); EOSINOPHILS ABSOLUTE AUTO 0.03 K/uL (0.04-0.40); EOSINOPHILS PERCENT AUTO 0.4 % (1.0-5.0); LYMPHOCYTES ABSOLUTE AUTO 2.10 K/uL (1.50-4.00); LYMPHOCYTES PERCENT AUTO 27.7 % (20.0-40.0); MEAN PLATELET VOLUME 9.8 fL (6.0-10.0); MONOCYTES ABSOLUTE AUTO 0.51 K/uL (0.20-0.80); MONOCYTES PERCENT AUTO 6.7 % (3.0-10.0); NEUTROPHILS ABSOLUTE AUTO 4.92 K/uL (2.00-7.50); NEUTROPHILS PERCENT AUTO 64.8 % (45.0-70.0); PLATELET COUNT,PLT 289 K/uL (150-500); RED BLOOD CELL COUNT 4.60 M/uL (3.80-5.80); RED CELL DISTRIBUTION WIDTH 14.7 % (11.0-16.0); WHITE BLOOD CELL COUNT,WBC 7.6 K/uL (4.0-11.0)
[2025-08-06 16:37] LABS: APPEARANCE,URINE CLEAR (CLEAR); GLUCOSE,URINE NEGATIVE (NEGATIVE); OCCULT BLOOD,URINE NEGATIVE (NEGATIVE)
[2025-08-06 16:50] LABS: AMPHETAMINES SCREEN, URINE NEGATIVE (NEGATIVE); METHADONE SCREEN, URINE NEGATIVE (NEGATIVE); METHAMPHETAMINES SCREEN, URINE POSITIVE (NEGATIVE); OXYCODONE SCREEN,URINE NEGATIVE (NEGATIVE); THC SCREEN,URINE 50 NG/ML NEGATIVE (NEGATIVE)
[2025-08-06 17:05] LABS: ETHANOL BLOOD MEDICAL < 3.0 mg/dL (<3.0)
[2025-08-06 17:07] LABS: A/G RATIO 0.8 (0.8-2.0); ALANINE AMINOTRANSFERASE,ALT 25.0 U/L (12-78); ASPARTATE AMNIOTRANSFERASE,AST 16.0 U/L (15-37); BILIRUBIN TOTAL 0.2 mg/dL (0.0-1.0); BLOOD UREA NITROGEN,BUN 7.0 mg/dL (8-26); CARBON DIOXIDE,CO2 26.7 mmol/L (21.0-32.0); CHLORIDE,CL 106.0 mmol/L (98-107); CREATININE 0.94 mg/dL (0.55-1.02); EST CRCL DRUG DOSING (CG) 65.26 mL/min; ESTIMATED GFR 76.0 mL/min (>60); GLUCOSE RANDOM 97.0 mg/dL (74-100); POTASSIUM,K 3.1 mmol/L (3.5-5.1); PROTEIN TOTAL,TP 7.2 g/dL (6.4-8.2); SODIUM,NA 143.0 mmol/L (136-145); TSH ULTRASENSITIVE 0.509 uIU/mL (0.358-3.740)
[2025-08-06] MEDS: Potassium Chloride 20 MEQ Tab.ER PO ONE (17:42)
[2025-08-06 18:09] VITALS: BP 149/96; PULSE 83
== END 2025-08-06 18:03 | disposition home or self-care (01) ==
LOC: LB.ED 15:21
DX: H66.003 Acute suppurative otitis media without spontaneous rupture of ear drum, bilateral (principal); G58.8 Other specified mononeuropathies; I10 Essential (primary) hypertension; K21.9 Gastro-esophageal reflux disease without esophagitis; E66.9 Obesity, unspecified; Z88.1 Allergy status to other antibiotic agents; Z91.048 Other nonmedicinal substance allergy status; Z79.899 Other long term (current) drug therapy; Z68.37 Body mass index [BMI] 37.0-37.9, adult
CPT/HCPCS: 36415; 80053; 80307; 81003; 83735; 84443; 85025; 86140; 99284; A9270; 99283